=== PATIENT | female | born 1940 | race Caucasian/White ===

== ENCOUNTER → 2016-11-26 | Outpatient (CLI) | payer OTHER ==
[~2016-11-26] MED LIST: ALBUAER3 IN; AMLO10TA2 PO; APIX2.5T OR; ASPI81CH43 PO; BACL20TA PO; CALCTAB25 PO; DIPH25CA66 PO; ERGO1CAP6 PO; FEBU40TA PO; FLUT110A INH; HYDR25TA4 PO; HYDR500T13 PO; MULT-60 OR; POTA10TA51 PO
[2016-11-26 09:50] LABS: Eosinophils # (auto) 0.5 uL; Hemoglobin 14.6 g/dL (12.2-16.2); Monocytes # (auto) 0.8 uL
[2016-11-26 09:52] LABS: Urine Bilirubin Negative (Negative); Urine Blood Negative /uL (Negative); Urine Color Yellow (Yellow); Urine Glucose Normal (Normal); Urine Ketone Negative (Negative); Urine Nitrite Negative (Negative); Urine RBC 1 /hpf (0 - 4); Urine Squamous Epithelial Cell FEW /hpf (<5); Urine Urobilinogen Normal (Negative); Urine pH 6.5 (5.0-8.0)
[2016-11-26 09:55] LABS: Basophils # (auto) 0.2 uL; Hematocrit 45.8 % (36.0-46.0); Lymphocytes # (auto) 1.4 uL; Lymphocytes % (auto) 15.2 % (10.0-50.0); Mean Corpuscular Hemoglobin 27.8 pg (28.0-32.0); Mean Corpuscular Hgb Conc. 31.9 g/dL (32.0-36.0); Mean Corpuscular Volume 87.3 fL (80.0-100.0); Mean Platelet Volume 9.8 fL (7.4-10.4); Monocytes % (auto) 9.4 % (0.0-12.0); Neutrophils # (auto) 6.1 uL; Neutrophils % (auto) 68.4 % (37.0-80.0); Platelet Count (auto) 184 10^3/uL (140-450); Red Cell Distribution Width 13.3 % (11.6-16.0); SUSPECT VIEW TRANSMISSION
[2016-11-26 10:43] LABS: Albumin 3.7 g/dL (3.4-5.0); BUN/Creatinine Ratio 24.7; Phosphorus 2.8 mg/dL (2.5-4.90); Uric Acid 9.8 mg/dL (2.6-6.0)
[2016-11-26 10:46] LABS: Urine Protein/Creatinine Ratio 0.36
[2016-11-26 10:53] LABS: Potassium 2.9 mmol/L (3.5-5.1)
== END | disposition home or self-care (01) ==
LOC: LAB 09:12
PROVIDERS: ATTEND Internal Medicine
DX: E55.9 Vitamin D deficiency, unspecified (principal); R80.9 Proteinuria, unspecified
CPT/HCPCS: 36415; 80069; 81001; 82306; 82570; 83970; 84156; 84550; 85025

== ENCOUNTER → 2017-04-07 | Outpatient (CLI) | payer OTHER ==
[2017-04-07 10:59] LABS: Basophils # (auto) 0.1 uL; Basophils % (auto) 0.9 % (0.0-2.0); Eosinophils # (auto) 0.3 uL; Eosinophils % (auto) 4.1 % (0.0-7.0); Hematocrit 44.7 % (36.0-46.0); Hemoglobin 14.6 g/dL (12.2-16.2); Lymphocytes # (auto) 1.4 uL; Lymphocytes % (auto) 19.2 % (10.0-50.0); Mean Corpuscular Hemoglobin 28.7 pg (28.0-32.0); Mean Corpuscular Hgb Conc. 32.8 g/dL (32.0-36.0); Mean Corpuscular Volume 87.6 fL (80.0-100.0); Mean Platelet Volume 9.7 fL (7.4-10.4); Monocytes % (auto) 13.4 % (0.0-12.0); Neutrophils # (auto) 4.4 uL; Neutrophils % (auto) 62.4 % (37.0-80.0); Platelet Count (auto) 236 10^3/uL (140-450); Red Cell Distribution Width 13.1 % (11.6-16.0); White Blood Cell 7.2 10^3/uL (4.4-10.8)
[2017-04-07 11:19] LABS: Albumin 3.7 g/dL (3.4-5.0); BUN/Creatinine Ratio 30.9; Calcium 9.4 mg/dL (8.5-10.1); Phosphorus 3.1 mg/dL (2.5-4.90); Potassium 3.1 mmol/L (3.5-5.1); Uric Acid 7.7 mg/dL (2.6-6.0)
[2017-04-07 11:31] LABS: Urine Bilirubin Negative (Negative); Urine Blood Negative /uL (Negative); Urine Color Yellow (Yellow); Urine Glucose Normal (Normal); Urine Ketone Negative (Negative); Urine Nitrite Negative (Negative); Urine RBC <1 /hpf (0 - 4); Urine Urobilinogen Normal (Negative); Urine pH 6.5 (5.0-8.0)
== END | disposition home or self-care (01) ==
LOC: LAB 09:33
PROVIDERS: ATTEND Internal Medicine
DX: N18.3 Chronic kidney disease, stage 3 (moderate) (principal); D63.1 Anemia in chronic kidney disease; E21.3 Hyperparathyroidism, unspecified; E78.5 Hyperlipidemia, unspecified; M10.9 Gout, unspecified; E55.9 Vitamin D deficiency, unspecified
CPT/HCPCS: 36415; 80061; 80069; 81001; 82306; 82570; 83970; 84156; 84550; 85025

== ENCOUNTER 2017-04-25 19:05 | Inpatient (IN) | payer OTHER ==
[~2017-04-25] VITALS: Ht 167.6 cm; Wt 77.5 kg
[2017-04-25 20:33] LABS: Basophils # (auto) 0 uL; Basophils % (auto) 0.3 % (0.0-2.0); CONDITION Y; Eosinophils # (auto) 0.3 uL; Eosinophils % (auto) 1.7 % (0.0-7.0); Hematocrit 37.7 % (36.0-46.0); Hemoglobin 12.5 g/dL (12.2-16.2); Lymphocytes # (auto) 1.8 uL; Lymphocytes % (auto) 11.6 % (10.0-50.0); Mean Corpuscular Hemoglobin 29.1 pg (28.0-32.0); Mean Corpuscular Hgb Conc. 33.1 g/dL (32.0-36.0); Mean Corpuscular Volume 87.9 fL (80.0-100.0); Mean Platelet Volume 9.1 fL (7.4-10.4); Monocytes # (auto) 1.1 uL; Monocytes % (auto) 6.8 % (0.0-12.0); Neutrophils # (auto) 12.7 uL; Neutrophils % (auto) 79.6 % (37.0-80.0); Platelet Count (auto) 255 10^3/uL (140-450); Red Cell Distribution Width 14.2 % (11.6-16.0); White Blood Cell 15.9 10^3/uL (4.4-10.8)
[2017-04-25 20:48] LABS: Albumin 3.4 g/dL (3.4-5.0); Calcium 8.8 mg/dL (8.5-10.1)
[2017-04-25 20:53] LABS: BUN/Creatinine Ratio 32.8; Bilirubin, Total 0.4 mg/dL (0.2-1.0); Total Protein 7.5 g/dL (6.4-8.2)
[2017-04-25 20:59] LABS: Potassium 2.9 mmol/L (3.5-5.1)
[2017-04-25] MEDS ORDERED: POTASSIUM CHL 10% (20 MEQ/15ML) ORAL SOLN PO ONE (21:00)
[2017-04-25] MEDS ORDERED: SODIUM CHLORIDE 0.9% 500 ML IVB ONE (21:44)
[2017-04-25 22:03] LABS: Amylase 71 U/L (25-115)
[2017-04-25 22:21] LABS: INR 1.05 (0.9-1.15); Partial Thromboplastin Time 29.2 sec (22.64-33.71); Prothrombin Time 11.5 sec (9.37-12.3)
[2017-04-26] VITALS (8 sets, daily range): BP systolic 19–127; BP diastolic 44–64
[2017-04-26] MEDS ORDERED: SODIUM CHLORIDE 0.9% 1,000 ML IV SCH (00:36)
[2017-04-26] MEDS ORDERED: PANTOPRAZOLE SODIUM 40 MG/10 ML VIAL IV ONE (00:45)
[2017-04-26] MEDS ORDERED: ALBUTEROL SULF 2.5 MG/0.5ML(0.5%) NEB SOLN NEB PRN (00:45)
[2017-04-26] MEDS ORDERED: NITROGLYCERIN 0.4 MG SL TAB SL PRN (00:45)
[2017-04-26] MEDS ORDERED: LACTULOSE 20Gm/30ML SOLN PO PRN (00:45)
[2017-04-26] MEDS ORDERED: MORPHINE SULFATE 4 MG/ML SYRG IV PRN (00:45)
[2017-04-26] MEDS ORDERED: cefTRIAXone 1GM/50ML D5W 50 ML IV ONE (01:00)
[2017-04-26] MEDS: metroNIDAZOLE 500MG/100ML 100 ML IV SCH ×3 (01:04→15:20)
[2017-04-26] MEDS ORDERED: METO100T87 PO (04:46)
[2017-04-26] MEDS ORDERED: ACET-1079 PO (04:46)
[2017-04-26 05:22] LABS: Hematocrit 29.7 % (36.0-46.0); Hemoglobin 9.9 g/dL (12.2-16.2)
[2017-04-26] MEDS: BACLOFEN 10 MG TAB PO SCH ×3 (06:09→21:31)
[2017-04-26] MEDS ORDERED: cefTRIAXone 1GM/50ML D5W 50 ML IV SCH (09:00)
[2017-04-26] MEDS: POTASSIUM CHL 10 Meq TABLET PO SCH (09:58)
[2017-04-26] MEDS: METOPROLOL SUCCINATE XL 50 MG TAB PO SCH ×2 (09:59→21:30)
[2017-04-26] MEDS ORDERED: APIXABAN 2.5 MG TAB PO SCH (10:00)
[2017-04-26] MEDS ORDERED: HCTZ 25 MG TAB PO SCH (10:00)
[2017-04-26] MEDS ORDERED: PANTOPRAZOLE 40 MG TAB PO SCH (10:00)
[2017-04-26] MEDS ORDERED: PATIENTS OWN MEDICATION (ELIQUIS 2.5 MG) PO SCH (10:00)
[2017-04-26] MEDS ORDERED: ULORIC 40 MG PO SCH (10:00)
[2017-04-26] MEDS ORDERED: amLODIPine BESYLATE 5 MG TAB PO SCH (10:00)
[2017-04-26 11:40] LABS: Hematocrit 31.5 % (36.0-46.0); Hemoglobin 10.6 g/dL (12.2-16.2)
[2017-04-26] MEDS: ULORIC 40 MG PO SCH (12:35)
[2017-04-26] MEDS: SOD CHL 0.9%/ KCL 20MEQ 1,000 ML IV SCH (17:21)
[2017-04-26 17:53] LABS: Hematocrit 30.2 % (36.0-46.0); Hemoglobin 10.1 g/dL (12.2-16.2)
[2017-04-26] MEDS: PANTOPRAZOLE 40 MG TAB PO SCH (21:31)
[2017-04-27] VITALS (7 sets, daily range): BP systolic 124–143; BP diastolic 55–86
[2017-04-27] MEDS: BACLOFEN 10 MG TAB PO SCH ×3 (06:07→21:34)
[2017-04-27 06:12] LABS: Basophils # (auto) 0.1 uL; Basophils % (auto) 0.7 % (0.0-2.0); CONDITION Y; Eosinophils # (auto) 0.3 uL; Eosinophils % (auto) 3.8 % (0.0-7.0); Hematocrit 28.8 % (36.0-46.0); Hemoglobin 9.8 g/dL (12.2-16.2); Lymphocytes # (auto) 1.5 uL; Lymphocytes % (auto) 18.8 % (10.0-50.0); Mean Corpuscular Hemoglobin 29.4 pg (28.0-32.0); Mean Corpuscular Hgb Conc. 33.9 g/dL (32.0-36.0); Mean Corpuscular Volume 86.8 fL (80.0-100.0); Mean Platelet Volume 9.7 fL (7.4-10.4); Monocytes # (auto) 0.8 uL; Monocytes % (auto) 9.4 % (0.0-12.0); Neutrophils # (auto) 5.5 uL; Neutrophils % (auto) 67.3 % (37.0-80.0); Platelet Count (auto) 200 10^3/uL (140-450); Red Cell Distribution Width 14.1 % (11.6-16.0); White Blood Cell 8.2 10^3/uL (4.4-10.8)
[2017-04-27 06:43] LABS: Albumin 2.8 g/dL (3.4-5.0); BUN/Creatinine Ratio 31.2; Bilirubin, Total 0.2 mg/dL (0.2-1.0); Calcium 8.3 mg/dL (8.5-10.1); Total Protein 6.4 g/dL (6.4-8.2)
[2017-04-27 06:46] LABS: Potassium 2.9 mmol/L (3.5-5.1)
[2017-04-27] MEDS: METOPROLOL SUCCINATE XL 50 MG TAB PO SCH ×2 (09:14→21:34)
[2017-04-27] MEDS: ULORIC 40 MG PO SCH (09:15)
[2017-04-27] MEDS: PANTOPRAZOLE 40 MG TAB PO SCH ×2 (09:15→21:35)
[2017-04-27] MEDS: POTASSIUM CHL 10 Meq TABLET PO SCH (09:15)
[2017-04-27] MEDS ORDERED: GOLYTELY 4L KIT PO ONE (12:00)
[2017-04-27] MEDS ORDERED: POTASSIUM CHL 20 Meq TABLET PO ONE (13:15)
[2017-04-27] MEDS: SOD CHL 0.9%/ KCL 20MEQ 1,000 ML IV SCH (13:51)
[2017-04-28] VITALS (7 sets, daily range): BP systolic 136–177; BP diastolic 35–92
[2017-04-28] MEDS: BACLOFEN 10 MG TAB PO SCH ×3 (05:43→22:00)
[2017-04-28 05:48] LABS: Hematocrit 31.7 % (36.0-46.0)
[2017-04-28] MEDS: PANTOPRAZOLE 40 MG TAB PO SCH ×2 (09:30→22:00)
[2017-04-28] MEDS: POTASSIUM CHL 10 Meq TABLET PO SCH (09:30)
[2017-04-28] MEDS: METOPROLOL SUCCINATE XL 50 MG TAB PO SCH ×2 (09:31→22:00)
[2017-04-28] MEDS: SOD CHL 0.9%/ KCL 40MEQ 1,000 ML IV SCH (09:32)
[2017-04-28] MEDS: ULORIC 40 MG PO SCH (09:32)
[2017-04-28] MEDS ORDERED: LORazepam 2MG/ML-1ML VIAL IV PRN (20:00)
[2017-04-28] MEDS: ATORVASTATIN 20 MG TAB PO SCH (22:00)
[2017-04-29] VITALS (7 sets, daily range): BP systolic 116–154; BP diastolic 58–88
[2017-04-29] MEDS: SOD CHL 0.9%/ KCL 40MEQ 1,000 ML IV SCH (00:18)
[2017-04-29] MEDS: BACLOFEN 10 MG TAB PO SCH ×3 (05:01→21:26)
[2017-04-29] MEDS ORDERED: SODIUM CHLORIDE LOCK 10 ML ONE (08:12)
[2017-04-29] MEDS ORDERED: LIDOCAINE VISCOUS 2% 15ML UD ONE (08:12)
[2017-04-29] MEDS ORDERED: diphenhdrAMINE HCL 50 MG/1 ML VL ONE (08:13)
[2017-04-29] MEDS: MIDAZOLAM HCL 5 MG/ML-1ML VIAL ONE ×3 (09:00→09:10)
[2017-04-29] MEDS: fentaNYL CITRATE 100 MCG/2 ML VL ONE ×3 (09:00→09:10)
[2017-04-29] MEDS: PANTOPRAZOLE 40 MG TAB PO SCH ×2 (12:00→21:27)
[2017-04-29] MEDS: METOPROLOL SUCCINATE XL 50 MG TAB PO SCH ×2 (12:00→21:28)
[2017-04-29] MEDS: POTASSIUM CHL 10 Meq TABLET PO SCH (12:00)
[2017-04-29] MEDS: ULORIC 40 MG PO SCH (12:01)
[2017-04-29 18:17] LABS: Hematocrit 31.9 % (36.0-46.0); Hemoglobin 10.7 g/dL (12.2-16.2)
[2017-04-29] MEDS: ATORVASTATIN 20 MG TAB PO SCH (21:27)
[2017-04-30 00:47] LABS: Hematocrit 31.6 % (36.0-46.0)
[2017-04-30 05:10] VITALS: BP 136/71
[2017-04-30] MEDS: BACLOFEN 10 MG TAB PO SCH ×3 (05:18→22:12)
[2017-04-30 05:37] LABS: Hemoglobin 9.1 g/dL (12.2-16.2)
[2017-04-30 05:59] LABS: BUN/Creatinine Ratio 14.5; Calcium 8.4 mg/dL (8.5-10.1); Potassium 3.2 mmol/L (3.5-5.1)
[2017-04-30 09:00] VITALS: BP 127/60
[2017-04-30] MEDS: PANTOPRAZOLE 40 MG TAB PO SCH ×2 (10:11→22:11)
[2017-04-30] MEDS: ULORIC 40 MG PO SCH (10:12)
[2017-04-30] MEDS: POTASSIUM CHL 20 Meq TABLET PO SCH (10:12)
[2017-04-30] MEDS: METOPROLOL SUCCINATE XL 50 MG TAB PO SCH ×2 (10:12→22:13)
[2017-04-30 13:00] VITALS: BP 130/80
[2017-04-30] MEDS ORDERED: amLODIPine BESYLATE 5 MG TAB PO ONE (14:00)
[2017-04-30 17:00] VITALS: BP 125/54
[2017-04-30 20:00] VITALS: BP 118/60
[2017-04-30 22:00] VITALS: BP 118/60
[2017-04-30] MEDS: ATORVASTATIN 20 MG TAB PO SCH (22:10)
[2017-04-30] MEDS: APIXABAN 2.5 MG TAB PO SCH (22:11)
[2017-05-01 04:58] VITALS: BP 113/75
[2017-05-01] MEDS: BACLOFEN 10 MG TAB PO SCH (05:32)
[2017-05-01 07:06] LABS: Basophils # (auto) 0 uL; Basophils % (auto) 0.5 % (0.0-2.0); CONDITION Y; Eosinophils # (auto) 0.2 uL; Hematocrit 29.8 % (36.0-46.0); Hemoglobin 10.4 g/dL (12.2-16.2); Lymphocytes # (auto) 1.3 uL; Lymphocytes % (auto) 15.4 % (10.0-50.0); Mean Corpuscular Hemoglobin 31.2 pg (28.0-32.0); Mean Corpuscular Volume 89.2 fL (80.0-100.0); Mean Platelet Volume 9.4 fL (7.4-10.4); Monocytes % (auto) 12.1 % (0.0-12.0); Neutrophils # (auto) 5.7 uL; Platelet Count (auto) 204 10^3/uL (140-450); Red Cell Distribution Width 14.8 % (11.6-16.0); White Blood Cell 8.2 10^3/uL (4.4-10.8)
[2017-05-01] MEDS ORDERED: PANT40T PO (07:52)
[2017-05-01 08:00] VITALS: BP 113/75
[2017-05-01] MEDS ORDERED: ATOR20TA50 PO (08:53)
[2017-05-01 09:00] VITALS: BP 134/68
[2017-05-01] MEDS: ULORIC 40 MG PO SCH (09:59)
[2017-05-01] MEDS: PANTOPRAZOLE 40 MG TAB PO SCH (10:00)
[2017-05-01] MEDS ORDERED: amLODIPine BESYLATE 5 MG TAB PO SCH (10:00)
[2017-05-01] MEDS: POTASSIUM CHL 20 Meq TABLET PO SCH (10:00)
[2017-05-01] MEDS: APIXABAN 2.5 MG TAB PO SCH (10:00)
[2017-05-01] MEDS: METOPROLOL SUCCINATE XL 50 MG TAB PO SCH (10:01)
[2017-05-01 10:24] VITALS: BP 134/68
== END 2017-05-01 12:59 | disposition home or self-care (01) | DRG 378 ==
LOC: ER 19:06 → TELE 19:07 → TELE-WESTW 04-26 02:02
PROVIDERS: ADMIT Family Medicine; ATTEND Internal Medicine
PROC: 0DB68ZX Excision of Stomach, Via Natural or Artificial Opening Endoscopic, Diagnostic (ICD-10-PCS; principal; 2017-04-29 08:38)
PROC: 0DJD8ZZ Inspection of Lower Intestinal Tract, Via Natural or Artificial Opening Endoscopic (ICD-10-PCS; 2017-04-29 08:38)
DX: K25.4 Chronic or unspecified gastric ulcer with hemorrhage (principal); I13.0 Hypertensive heart and chronic kidney disease with heart failure and stage 1 through stage 4 chronic kidney disease, or unspecified chronic kidney disease; R65.10 Systemic inflammatory response syndrome (SIRS) of non-infectious origin without acute organ dysfunction; I50.32 Chronic diastolic (congestive) heart failure; D62 Acute posthemorrhagic anemia; I69.351 Hemiplegia and hemiparesis following cerebral infarction affecting right dominant side; E87.6 Hypokalemia; I48.0 Paroxysmal atrial fibrillation; I48.2 Chronic atrial fibrillation; I73.9 Peripheral vascular disease, unspecified; J44.9 Chronic obstructive pulmonary disease, unspecified; K57.50 Diverticulosis of both small and large intestine without perforation or abscess without bleeding; M10.9 Gout, unspecified; N18.3 Chronic kidney disease, stage 3 (moderate); Z82.3 Family history of stroke; Z82.49 Family history of ischemic heart disease and other diseases of the circulatory system; Z85.828 Personal history of other malignant neoplasm of skin; M19.90 Unspecified osteoarthritis, unspecified site; F17.200 Nicotine dependence, unspecified, uncomplicated; K25.9 Gastric ulcer, unspecified as acute or chronic, without hemorrhage or perforation; K64.8 Other hemorrhoids; Z86.711 Personal history of pulmonary embolism; Z88.2 Allergy status to sulfonamides; Z88.7 Allergy status to serum and vaccine; Z88.8 Allergy status to other drugs, medicaments and biological substances; Z91.041 Radiographic dye allergy status; Z79.82 Long term (current) use of aspirin; Z90.710 Acquired absence of both cervix and uterus; G47.00 Insomnia, unspecified; D72.829 Elevated white blood cell count, unspecified; Z71.89 Other specified counseling
CPT/HCPCS: 36415; 43239; 45378; 70450; 70551; 71010; 74176; 80048; 80053; 80061; 82150; 82270; 83690; 83735; 84132; 84484; 85014; 85018; 85025; 85610; 85730; 86850; 86900; 86901; 93005; 93306; 93886; 94640; 95819; 96361; 96374; C9113; J0696; J2250; J3490

== ENCOUNTER → 2017-06-10 | Outpatient (CLI) | payer OTHER ==
[~2017-06-10] MED LIST changes: +ACET-1079 PO; -ASPI81CH43 PO; +ATOR20TA50 PO; -HYDR25TA4 PO; +METO100T87 PO; +PANT40T PO
[2017-06-10 08:44] LABS: Basophils # (auto) 0 uL; Basophils % (auto) 0.6 % (0.0-2.0); CONDITION Y; DEFINITIVE SEE PRINTOUT; Eosinophils # (auto) 0.2 uL; Eosinophils % (auto) 3.3 % (0.0-7.0); Hemoglobin 9.9 g/dL (12.2-16.2); Lymphocytes % (auto) 14.9 % (10.0-50.0); Mean Corpuscular Hemoglobin 26.5 pg (28.0-32.0); Mean Corpuscular Hgb Conc. 31.9 g/dL (32.0-36.0); Mean Corpuscular Volume 83.2 fL (80.0-100.0); Mean Platelet Volume 8.4 fL (7.4-10.4); Monocytes # (auto) 0.9 uL; Neutrophils # (auto) 4.6 uL; Neutrophils % (auto) 68.2 % (37.0-80.0); Platelet Count (auto) 259 10^3/uL (140-450); Red Cell Distribution Width 16.2 % (11.6-16.0); White Blood Cell 6.7 10^3/uL (4.4-10.8)
== END | disposition home or self-care (01) ==
LOC: LAB 08:10
PROVIDERS: ATTEND Family Medicine
DX: K63.5 Polyp of colon (principal); K57.30 Diverticulosis of large intestine without perforation or abscess without bleeding; I11.0 Hypertensive heart disease with heart failure; I50.9 Heart failure, unspecified; I48.91 Unspecified atrial fibrillation; J44.9 Chronic obstructive pulmonary disease, unspecified
CPT/HCPCS: 36415; 85025

== ENCOUNTER → 2017-08-07 | Outpatient (CLI) | payer OTHER ==
[2017-08-07 09:45] LABS: Basophils # (auto) 0.1 uL; Eosinophils # (auto) 0.2 uL; Eosinophils % (auto) 3.7 % (0.0-7.0); Hematocrit 37.6 % (36.0-46.0); Hemoglobin 11.9 g/dL (12.2-16.2); Lymphocytes # (auto) 0.9 uL; Lymphocytes % (auto) 16.5 % (10.0-50.0); Mean Corpuscular Hgb Conc. 31.7 g/dL (32.0-36.0); Mean Corpuscular Volume 85.3 fL (80.0-100.0); Mean Platelet Volume 8.6 fL (6.9-10.8); Monocytes # (auto) 0.7 uL; Monocytes % (auto) 13.1 % (0.0-12.0); Neutrophils # (auto) 3.6 uL; Neutrophils % (auto) 65.7 % (37.0-80.0); Nucleated Red Blood Cells % 0.1 %; Platelet Count (auto) 170 10^3/uL (140-450); Red Cell Distribution Width 20.8 % (11.8-14.3); Urine Bilirubin Negative (Negative); Urine Blood Negative /uL (Negative); Urine Color Yellow (Yellow); Urine Glucose Normal (Normal); Urine Ketone Negative (Negative); Urine Nitrite Negative (Negative); Urine RBC <1 /hpf (0 - 4); Urine Squamous Epithelial Cell FEW /hpf (<5); Urine Urobilinogen Normal (Negative); Urine pH 6.5 (5.0-8.0); White Blood Cell 5.5 10^3/uL (4.4-10.8)
[2017-08-07 09:56] LABS: Urine Protein/Creatinine Ratio 0.43
[2017-08-07 10:09] LABS: Albumin 3.6 g/dL (3.4-5.0); BUN/Creatinine Ratio 16.1; Calcium 8.8 mg/dL (8.5-10.1); Phosphorus 3.3 mg/dL (2.5-4.90); Potassium 4.3 mmol/L (3.5-5.1); Uric Acid 4.4 mg/dL (2.6-6.0)
== END | disposition home or self-care (01) ==
LOC: LAB 08:34
PROVIDERS: ATTEND Internal Medicine
DX: N18.3 Chronic kidney disease, stage 3 (moderate) (principal); D63.1 Anemia in chronic kidney disease; M10.9 Gout, unspecified; R80.9 Proteinuria, unspecified; E53.9 Vitamin B deficiency, unspecified
CPT/HCPCS: 36415; 80069; 81001; 82306; 82570; 83970; 84156; 84550; 85025

== ENCOUNTER → 2017-09-16 | Outpatient (CLI) | payer OTHER ==
[2017-09-16 09:23] LABS: Basophils # (auto) 0.1 uL; Basophils % (auto) 1.2 % (0.0-2.0); Eosinophils # (auto) 0.2 uL; Eosinophils % (auto) 3.4 % (0.0-7.0); Hematocrit 39.2 % (36.0-46.0); Hemoglobin 12.6 g/dL (12.2-16.2); Lymphocytes % (auto) 17.8 % (10.0-50.0); Mean Corpuscular Hemoglobin 27.2 pg (28.0-32.0); Mean Corpuscular Hgb Conc. 32.2 g/dL (32.0-36.0); Mean Corpuscular Volume 84.6 fL (80.0-100.0); Mean Platelet Volume 8.1 fL (6.9-10.8); Monocytes # (auto) 0.7 uL; Monocytes % (auto) 12.7 % (0.0-12.0); Neutrophils # (auto) 3.7 uL; Neutrophils % (auto) 64.9 % (37.0-80.0); Platelet Count (auto) 164 10^3/uL (140-450); Red Cell Distribution Width 18.8 % (11.8-14.3); White Blood Cell 5.7 10^3/uL (4.4-10.8)
== END | disposition home or self-care (01) ==
LOC: LAB 09:02
PROVIDERS: ATTEND Internal Medicine Gastroenterology
DX: R19.5 Other fecal abnormalities (principal); J44.9 Chronic obstructive pulmonary disease, unspecified; I11.0 Hypertensive heart disease with heart failure; I50.9 Heart failure, unspecified
CPT/HCPCS: 36415; 85025

== ENCOUNTER → 2017-10-14 | Outpatient (CLI) | payer OTHER ==
[2017-10-14 09:26] LABS: Urine Bilirubin Negative (Negative); Urine Blood Negative /uL (Negative); Urine Color Yellow (Yellow); Urine Glucose Normal (Normal); Urine Ketone Negative (Negative); Urine Nitrite Negative (Negative); Urine RBC 1 /hpf (0 - 4); Urine Squamous Epithelial Cell FEW /hpf (<5); Urine Urobilinogen Normal (Negative)
[2017-10-14 09:57] LABS: Albumin 3.9 g/dL (3.4-5.0); BUN/Creatinine Ratio 20.7; Bilirubin, Total 0.7 mg/dL (0.2-1.0); Calcium 9.4 mg/dL (8.5-10.1); Total Protein 8.8 g/dL (6.4-8.2)
== END | disposition home or self-care (01) ==
LOC: LAB 08:59
PROVIDERS: ATTEND Internal Medicine
DX: I13.0 Hypertensive heart and chronic kidney disease with heart failure and stage 1 through stage 4 chronic kidney disease, or unspecified chronic kidney disease (principal); I50.9 Heart failure, unspecified; N18.4 Chronic kidney disease, stage 4 (severe); I48.2 Chronic atrial fibrillation
CPT/HCPCS: 36415; 80053; 80061; 81001; 83036; 84443; 86141

== ENCOUNTER → 2017-12-03 | Outpatient (CLI) | payer OTHER ==
[~2017-12-03] VITALS: Ht 167.6 cm; Wt 76.7 kg
[~2017-12-03] MED LIST changes: +ADENOSINE 64 MG in GIVE UN-DILUTED 0 ML IV ONE; +ALBUTEROL SULF 2.5 MG/0.5ML(0.5%) NEB SOLN ONE; +IPRATROPIUM BROM 0.5 MG/2.5ML INH SOL ONE
[2017-12-03 12:20] VITALS: BP 157/59
== END | disposition home or self-care (01) ==
LOC: XY 08:15
PROVIDERS: ATTEND Internal Medicine
DX: I05.2 Rheumatic mitral stenosis with insufficiency (principal); I36.1 Nonrheumatic tricuspid (valve) insufficiency; I48.2 Chronic atrial fibrillation
CPT/HCPCS: 93017; 93306; J0153; 94640

== ENCOUNTER → 2017-12-08 | Outpatient (CLI) | payer OTHER ==
[~2017-12-08] MED LIST changes: -ADENOSINE 64 MG in GIVE UN-DILUTED 0 ML IV ONE; -ALBUTEROL SULF 2.5 MG/0.5ML(0.5%) NEB SOLN ONE; -IPRATROPIUM BROM 0.5 MG/2.5ML INH SOL ONE
[2017-12-08 10:10] LABS: Basophils # (auto) 0.1 uL; Basophils % (auto) 1.2 % (0.0-2.0); Eosinophils # (auto) 0.3 uL; Eosinophils % (auto) 4.4 % (0.0-7.0); Hemoglobin 15.5 g/dL (12.2-16.2); Lymphocytes # (auto) 1.2 uL; Lymphocytes % (auto) 20.2 % (10.0-50.0); Mean Corpuscular Hgb Conc. 32.9 g/dL (32.0-36.0); Monocytes # (auto) 0.8 uL; Monocytes % (auto) 12.8 % (0.0-12.0); Neutrophils # (auto) 3.8 uL; Neutrophils % (auto) 61.4 % (37.0-80.0); Nucleated Red Blood Cells % 0.1 %; Platelet Count (auto) 183 10^3/uL (140-450); Red Blood Cells 5.34 10^6/uL (4.0-5.20); Red Cell Distribution Width 15.9 % (11.8-14.3); White Blood Cell 6.2 10^3/uL (4.4-10.8)
[2017-12-08 10:24] LABS: Urine Bacteria NONE SEEN /hpf (None Seen); Urine Blood Negative /uL (Negative); Urine Specific Gravity 1.011 (1.001-1.035); Urine WBC <1 /hpf (0 - 5)
[2017-12-08 11:54] LABS: Albumin 3.8 g/dL (3.4-5.0); BUN/Creatinine Ratio 27.3; Calcium 9.6 mg/dL (8.5-10.1); Phosphorus 3.7 mg/dL (2.5-4.90); Uric Acid 5.8 mg/dL (2.6-6.0)
[2017-12-08 12:11] LABS: Protein, Urine 27.2 mg/dL (0.0-11.9)
== END | disposition home or self-care (01) ==
LOC: LAB 08:50
PROVIDERS: ATTEND Internal Medicine
DX: N18.3 Chronic kidney disease, stage 3 (moderate) (principal); D63.1 Anemia in chronic kidney disease; E21.3 Hyperparathyroidism, unspecified; E78.5 Hyperlipidemia, unspecified; M10.9 Gout, unspecified; R80.9 Proteinuria, unspecified; E55.9 Vitamin D deficiency, unspecified
CPT/HCPCS: 36415; 80069; 81001; 82306; 82570; 83970; 84156; 84550; 85025

== ENCOUNTER → 2018-03-11 | Outpatient (CLI) | payer OTHER ==
[2018-03-11 16:15] LABS: Albumin 3.7 g/dL (3.4-5.0); Calcium 9.5 mg/dL (8.5-10.1); Potassium 4.2 mmol/L (3.5-5.1)
[2018-03-11 16:19] LABS: BUN/Creatinine Ratio 18.5; Bilirubin, Total 0.6 mg/dL (0.2-1.0); Total Protein 8.6 g/dL (6.4-8.2)
== END | disposition home or self-care (01) ==
LOC: LAB 15:43
PROVIDERS: ATTEND Internal Medicine
DX: R35.1 Nocturia (principal); R32 Unspecified urinary incontinence; E55.9 Vitamin D deficiency, unspecified; E78.5 Hyperlipidemia, unspecified; I13.0 Hypertensive heart and chronic kidney disease with heart failure and stage 1 through stage 4 chronic kidney disease, or unspecified chronic kidney disease; N18.3 Chronic kidney disease, stage 3 (moderate); I50.32 Chronic diastolic (congestive) heart failure; J44.9 Chronic obstructive pulmonary disease, unspecified; I73.9 Peripheral vascular disease, unspecified; I48.0 Paroxysmal atrial fibrillation; Z79.82 Long term (current) use of aspirin; Z87.891 Personal history of nicotine dependence
CPT/HCPCS: 36415; 80053

== ENCOUNTER → 2018-03-30 | Outpatient (CLI) | payer OTHER ==
[2018-03-30 10:05] LABS: Basophils # (auto) 0.1 uL; Basophils % (auto) 1.2 % (0.0-2.0); Eosinophils # (auto) 0.3 uL; Eosinophils % (auto) 4.3 % (0.0-7.0); Hematocrit 43.8 % (36.0-46.0); Hemoglobin 14.7 g/dL (12.2-16.2); Lymphocytes # (auto) 1.2 uL; Lymphocytes % (auto) 20.2 % (10.0-50.0); Mean Corpuscular Hemoglobin 30.4 pg (28.0-32.0); Mean Corpuscular Hgb Conc. 33.6 g/dL (32.0-36.0); Mean Corpuscular Volume 90.6 fL (80.0-100.0); Monocytes # (auto) 0.9 uL; Monocytes % (auto) 14.2 % (0.0-12.0); Neutrophils # (auto) 3.6 uL; Neutrophils % (auto) 60.1 % (37.0-80.0); Platelet Count (auto) 175 10^3/uL (140-450); Red Blood Cells 4.83 10^6/uL (4.0-5.20); Red Cell Distribution Width 13.8 % (11.8-14.3)
[2018-03-30 10:14] LABS: Urine Bacteria FEW /hpf (None Seen); Urine Blood Negative /uL (Negative); Urine Specific Gravity 1.009 (1.001-1.035); Urine WBC 1 /hpf (0 - 5)
[2018-03-30 10:21] LABS: Albumin 3.4 g/dL (3.4-5.0); Potassium 4.4 mmol/L (3.5-5.1)
[2018-03-30 10:24] LABS: BUN/Creatinine Ratio 21.1
[2018-03-30 10:26] LABS: Protein, Urine 21.6 mg/dL (0.0-11.9)
[2018-03-30 10:30] LABS: Phosphorus 3.6 mg/dL (2.5-4.90)
[2018-03-30 10:55] LABS: Uric Acid 5.4 mg/dL (2.6-6.0)
== END | disposition home or self-care (01) ==
LOC: LAB 09:06
PROVIDERS: ATTEND Internal Medicine
DX: E55.9 Vitamin D deficiency, unspecified (principal); I12.9 Hypertensive chronic kidney disease with stage 1 through stage 4 chronic kidney disease, or unspecified chronic kidney disease; N18.3 Chronic kidney disease, stage 3 (moderate); D63.1 Anemia in chronic kidney disease; E21.3 Hyperparathyroidism, unspecified; E78.5 Hyperlipidemia, unspecified; M10.9 Gout, unspecified; R80.9 Proteinuria, unspecified; J44.9 Chronic obstructive pulmonary disease, unspecified; Z79.82 Long term (current) use of aspirin; Z87.891 Personal history of nicotine dependence
CPT/HCPCS: 36415; 80069; 81001; 82306; 82570; 83970; 84156; 84550; 85025

== ENCOUNTER → 2018-08-03 | Outpatient (CLI) | payer OTHER ==
[~2018-08-03] MED LIST changes: +AMLO10TA12 PO; -AMLO10TA2 PO
[2018-08-03 09:15] LABS: Basophils # (auto) 0.1 uL; Basophils % (auto) 1.2 % (0.0-2.0); Eosinophils # (auto) 0.2 uL; Eosinophils % (auto) 4.2 % (0.0-7.0); Hematocrit 47.4 % (36.0-46.0); Hemoglobin 15.1 g/dL (12.2-16.2); Lymphocytes % (auto) 17.4 % (10.0-50.0); Mean Corpuscular Hemoglobin 29.1 pg (28.0-32.0); Mean Corpuscular Hgb Conc. 31.9 g/dL (32.0-36.0); Mean Corpuscular Volume 91.4 fL (80.0-100.0); Monocytes # (auto) 0.8 uL; Monocytes % (auto) 13.2 % (0.0-12.0); Neutrophils # (auto) 3.7 uL; Nucleated Red Blood Cells % 0.4 %; Platelet Count (auto) 167 10^3/uL (140-450); Red Blood Cells 5.19 10^6/uL (4.0-5.20); Red Cell Distribution Width 14.3 % (11.8-14.3); White Blood Cell 5.7 10^3/uL (4.4-10.8)
[2018-08-03 10:09] LABS: Potassium 4.7 mmol/L (3.5-5.1)
[2018-08-03 10:13] LABS: Albumin 3.6 g/dL (3.4-5.0); BUN/Creatinine Ratio 17.4; Calcium 8.6 mg/dL (8.5-10.1); Phosphorus 3.5 mg/dL (2.5-4.90)
[2018-08-03 17:48] LABS: Uric Acid 5.2 mg/dL (2.6-6.0)
[2018-08-05 07:01] LABS: Urine Bacteria NONE SEEN /hpf (None Seen); Urine Blood Negative /uL (Negative); Urine Specific Gravity 1.009 (1.001-1.035); Urine WBC 1 /hpf (0 - 5)
== END | disposition home or self-care (01) ==
LOC: LAB 08:42
PROVIDERS: ATTEND Internal Medicine
DX: I12.9 Hypertensive chronic kidney disease with stage 1 through stage 4 chronic kidney disease, or unspecified chronic kidney disease (principal); N18.3 Chronic kidney disease, stage 3 (moderate); D63.1 Anemia in chronic kidney disease; E21.3 Hyperparathyroidism, unspecified; E78.5 Hyperlipidemia, unspecified; M10.9 Gout, unspecified; R80.9 Proteinuria, unspecified; E55.9 Vitamin D deficiency, unspecified
CPT/HCPCS: 36415; 80061; 80069; 82306; 83970; 84550; 85025

== ENCOUNTER → 2018-08-31 | Outpatient (CLI) | payer OTHER ==
[2018-08-31 10:46] LABS: Basophils # (auto) 0.1 uL; Basophils % (auto) 1.1 % (0.0-2.0); Eosinophils # (auto) 0.3 uL; Eosinophils % (auto) 4.2 % (0.0-7.0); Hematocrit 45.8 % (36.0-46.0); Hemoglobin 15.1 g/dL (12.2-16.2); Lymphocytes # (auto) 1.3 uL; Lymphocytes % (auto) 20.8 % (10.0-50.0); Mean Corpuscular Hemoglobin 30.3 pg (28.0-32.0); Mean Corpuscular Hgb Conc. 32.9 g/dL (32.0-36.0); Mean Corpuscular Volume 91.9 fL (80.0-100.0); Monocytes # (auto) 0.9 uL; Monocytes % (auto) 14.7 % (0.0-12.0); Neutrophils # (auto) 3.6 uL; Neutrophils % (auto) 59.2 % (37.0-80.0); Nucleated Red Blood Cells % 0.1 %; Platelet Count (auto) 181 10^3/uL (140-450); Red Blood Cells 4.99 10^6/uL (4.0-5.20); Red Cell Distribution Width 14.6 % (11.8-14.3); White Blood Cell 6.1 10^3/uL (4.4-10.8)
[2018-08-31 10:53] LABS: Urine Bacteria NONE SEEN /hpf (None Seen); Urine Blood Negative /uL (Negative); Urine Mucus FEW (None Seen); Urine Specific Gravity 1.012 (1.001-1.035); Urine WBC 2 /hpf (0 - 5)
[2018-08-31 11:54] LABS: Potassium 4.3 mmol/L (3.5-5.1)
[2018-08-31 12:16] LABS: Albumin 3.4 g/dL (3.4-5.0); BUN/Creatinine Ratio 22.9; Bilirubin, Total 0.7 mg/dL (0.2-1.0); Calcium 9.1 mg/dL (8.5-10.1); Total Protein 8.3 g/dL (6.4-8.2)
== END | disposition home or self-care (01) ==
LOC: LAB 09:17
PROVIDERS: ATTEND Nurse Practitioner
DX: R78.5 Finding of other psychotropic drug in blood (principal); I11.0 Hypertensive heart disease with heart failure
CPT/HCPCS: 36415; 80053; 80061; 81001; 83036; 84443; 85025

== ENCOUNTER → 2019-01-28 | Outpatient (CLI) | payer OTHER | END | disposition home or self-care (01) | LOC: XYW 08:21 | PROVIDERS: ATTEND Internal Medicine | DX: I08.1 Rheumatic disorders of both mitral and tricuspid valves (principal); I11.0 Hypertensive heart disease with heart failure; I50.9 Heart failure, unspecified; E78.5 Hyperlipidemia, unspecified | CPT/HCPCS: 93306 ==

== ENCOUNTER → 2019-02-04 | Outpatient (CLI) | payer OTHER ==
[2019-02-04 15:15] LABS: Urine Blood Negative /uL (Negative); Urine Specific Gravity 1.017 (1.001-1.035)
[2019-02-04 15:43] LABS: Albumin 3.4 g/dL (3.4-5.0); BUN/Creatinine Ratio 18.5; Calcium 8.8 mg/dL (8.5-10.1); Phosphorus 4.5 mg/dL (2.5-4.90)
[2019-02-04 15:47] LABS: Creatinine, Urine 121 mg/dL (30.0-125.0); Protein, Urine 66.8 mg/dL (0.0-11.9)
[2019-02-04 16:11] LABS: Hematocrit 44.1 % (36.0-46.0); Hemoglobin 14.3 g/dL (12.2-16.2); Mean Corpuscular Hemoglobin 30.1 pg (28.0-32.0); Mean Corpuscular Hgb Conc. 32.4 g/dL (32.0-36.0); Platelet Count (auto) 155 10^3/uL (140-450); Red Blood Cells 4.74 10^6/uL (4.0-5.20); Red Cell Distribution Width 14.5 % (11.8-14.3)
[2019-02-04 16:23] LABS: Band Neutrophils % (manual) 0; Basophils % (manual) 0 (0.0-2.0); Blast Cells 0; Metamyelocytes % 0; Myelocytes % 0; Promyelocytes % 0; Reactive Lymphocytes 0
[2019-02-04 17:34] LABS: Eosinophils % (manual) 5 (0-7); Lymphocytes % (manual) 11 (10.0-50.0); Monocytes % (manual) 9 (0-12)
== END | disposition home or self-care (01) ==
LOC: LAB 14:29
PROVIDERS: ATTEND Internal Medicine
DX: M10.9 Gout, unspecified (principal); I12.9 Hypertensive chronic kidney disease with stage 1 through stage 4 chronic kidney disease, or unspecified chronic kidney disease; D63.1 Anemia in chronic kidney disease; N18.3 Chronic kidney disease, stage 3 (moderate); R80.9 Proteinuria, unspecified
CPT/HCPCS: 36415; 80069; 81003; 82306; 82570; 83970; 84156; 85007; 85027

== ENCOUNTER 2019-02-23 14:03 | Inpatient (IN) | payer OTHER ==
[~2019-02-23] VITALS: Ht 167.6 cm; Wt 89.5 kg
[2019-02-23] MEDS ORDERED: SODIUM CHLORIDE 0.9% 1,000 ML IV ONE (14:10)
[2019-02-23] MEDS ORDERED: ALBUTEROL SULF 2.5 MG/0.5ML(0.5%) NEB SOLN NEB ONE (14:15)
[2019-02-23] MEDS ORDERED: methylPREDNISolone SOD SUCC 125 MG/2 ML VL IV ONE (14:15)
[2019-02-23] MEDS ORDERED: IPRATROPIUM BROM 0.5 MG/2.5ML INH SOL NEB ONE (14:15)
[2019-02-23] MEDS ORDERED: cefTRIAXone 1GM/50ML D5W 50 ML IV ONE (14:15)
[2019-02-23 14:46] LABS: Basophils # (auto) 0.1 uL; Basophils % (auto) 0.6 % (0.0-2.0); Eosinophils # (auto) 0.3 uL; Eosinophils % (auto) 2.4 % (0.0-7.0); Hematocrit 41.8 % (36.0-46.0); Hemoglobin 13.7 g/dL (12.2-16.2); Lymphocytes # (auto) 0.7 uL; Lymphocytes % (auto) 5.6 % (10.0-50.0); Mean Corpuscular Hemoglobin 30.4 pg (28.0-32.0); Mean Corpuscular Hgb Conc. 32.9 g/dL (32.0-36.0); Mean Corpuscular Volume 92.4 fL (80.0-100.0); Monocytes # (auto) 0.9 uL; Monocytes % (auto) 7.9 % (0.0-12.0); Neutrophils # (auto) 9.9 uL; Neutrophils % (auto) 83.5 % (37.0-80.0); Platelet Count (auto) 191 10^3/uL (140-450); Red Blood Cells 4.52 10^6/uL (4.0-5.20); Red Cell Distribution Width 14.1 % (11.8-14.3); White Blood Cell 11.9 10^3/uL (4.4-10.8)
[2019-02-23 14:56] LABS: Albumin 3.4 g/dL (3.4-5.0); Calcium 8.9 mg/dL (8.5-10.1); Potassium 4.2 mmol/L (3.5-5.1)
[2019-02-23] MEDS ORDERED: MORPHINE SULF INJ 2 MG/ML SYRINGE 1ML IV PRN (15:00)
[2019-02-23] MEDS ORDERED: FUROSEMIDE 40 MG/4 ML VIAL IV ONE (15:00)
[2019-02-23] MEDS ORDERED: METOPROLOL TARTRATE 50 MG TAB PO ONE (15:00)
[2019-02-23] MEDS ORDERED: NITROGLYCERIN 0.4 MG SL TAB SL PRN (15:00)
[2019-02-23 15:06] LABS: BUN/Creatinine Ratio 17.2; Bilirubin, Total 0.6 mg/dL (0.2-1.0); Total Protein 8.1 g/dL (6.4-8.2)
[2019-02-23] MEDS: BUDESONIDE (INHALATION) 0.5 MG/2 ML NEB NEB SCH (18:05)
[2019-02-23] MEDS: IPRATROPIUM BROM 0.5 MG/2.5ML INH SOL NEB SCH (18:05)
[2019-02-23] MEDS: LEVALBUTEROL HCL 1.25 MG/3 ML NEB NEB SCH (18:05)
--- NOTE | 2019-02-23 18:50 | NUR ---
PATIENT RECEIVED FROM EMERGENCY ROOM WITH MINIMAL REPORT
--- NOTE | 2019-02-23 19:15 | NUR ---
ASSUMED PATIENT CARE- NOC SHIFT PATIENT IS ALERT AND ORIENTED, ANSWERS IN COMPLETE SENTENCES AND MAKES APPROPRIATE EYE CONTACT. PATIENT IS IN BED, BED IS LOCKED AT LOWEST POSITION, BED RAILS UP X2, BEDSIDE TABLE WITHIN REACH, CALL LIGHT WITHIN REACH. DISCUSSED POC WITH PATIENT AND INSTRUCTED PATIENT TO CALL PRN; PATIENT VERBALIZED UNDERSTANDING. NO S/SX OF DISTRESS, SOB OR PAIN. WILL CONTINUE TO MONITOR Q1H AND PRN. PATIENT WAS ADMITTED FROM ER AT 1850; DAUGHTER AT BEDSIDE. O2 NC AT 2L; PATIENT BECOMES SOB WITH ACTIVITY. PATIENT AMBULATED TO THE RESTROOM WITH USE OF PERSONAL STRAIGHT CANE; PATIENT'S GAIT IS WEAK. BED ALARM ON FOR SAFETY PRECAUTIONS. INSTRUCTED PATIENT TO CALL FOR ASSISTANCE IF SHE NEEDS TO GET OUT OF BED; PATIENT VERBALIZED UNDERSTANDING.
[2019-02-23 20:00] VITALS: BP 149/62
[2019-02-23] MEDS: methylPREDNISolone SOD SUCC 40 MG/ML VL IV SCH (21:46)
[2019-02-23] MEDS: APIXABAN 2.5 MG TAB PO SCH (21:46)
[2019-02-23] MEDS: ATORVASTATIN 20 MG TAB PO SCH (21:47)
[2019-02-23] MEDS: METOPROLOL TARTRATE 50 MG TAB PO SCH (21:49)
[2019-02-23 22:00] VITALS: BP 149/62
[2019-02-23] MEDS ORDERED: FURO40TA4 PO (23:32)
[2019-02-23] MEDS ORDERED: CARV25TA55 PO (23:32)
[2019-02-23] MEDS ORDERED: CETI-120 PO (23:32)
[2019-02-23] MEDS ORDERED: ISOSTAB OR (23:32)
[2019-02-24] VITALS (7 sets, daily range): BP systolic 142–165; BP diastolic 54–87
[2019-02-24] MEDS: LEVALBUTEROL HCL 1.25 MG/3 ML NEB NEB SCH ×4 (06:46→18:55)
[2019-02-24] MEDS: IPRATROPIUM BROM 0.5 MG/2.5ML INH SOL NEB SCH ×4 (06:46→18:55)
[2019-02-24] MEDS: BUDESONIDE (INHALATION) 0.5 MG/2 ML NEB NEB SCH ×2 (06:47→18:55)
[2019-02-24 06:48] LABS: Anion Gap 10 (5-15); Carbon Dioxide 24 mmol/L (21-32); Chloride 106 mmol/L (98-107); Glucose 137 mg/dL (74-106); Potassium 3.8 mmol/L (3.5-5.1); Sodium 140 mmol/L (136-145)
[2019-02-24 06:49] LABS: Blood Urea Nitrogen 32 mg/dL (7-18); Calcium 9.1 mg/dL (8.5-10.1); GFR African American 40 mL/min; GFR Non-African American 33 mL/min
[2019-02-24] MEDS: APIXABAN 2.5 MG TAB PO SCH ×2 (09:31→22:18)
[2019-02-24] MEDS: METOPROLOL TARTRATE 50 MG TAB PO SCH ×2 (09:31→22:19)
[2019-02-24] MEDS: methylPREDNISolone SOD SUCC 40 MG/ML VL IV SCH ×2 (09:31→22:18)
[2019-02-24] MEDS: amLODIPine BESYLATE 5 MG TAB PO SCH (09:32)
[2019-02-24] MEDS: PANTOPRAZOLE 40 MG TAB PO SCH (09:32)
[2019-02-24] MEDS ORDERED: FUROSEMIDE 40 MG/4 ML VIAL IV SCH (10:00)
--- NOTE | 2019-02-24 19:00 | NUR ---
OPENING NOTE Received report from day shift RN. Patient is A&O X's 4 with no s/s of distress noted. Patient reports no pain at this time. Educated patient on POC and to use call light when in need of assistance. Patient verbalized understanding. Cane is available at bedside. Bed is in lowest/locked position with side rails up X's 2 and call light within reach of patient. Will continue to monitor for changes and round hourly/PRN.
[2019-02-24] MEDS: FUROSEMIDE 40 MG/4 ML VIAL IV SCH (22:17)
[2019-02-24] MEDS: ATORVASTATIN 20 MG TAB PO SCH (22:18)
[2019-02-25] MEDS: IPRATROPIUM BROM 0.5 MG/2.5ML INH SOL NEB SCH ×4 (00:12→19:19)
[2019-02-25] MEDS: LEVALBUTEROL HCL 1.25 MG/3 ML NEB NEB SCH ×4 (00:12→19:20)
--- NOTE | 2019-02-25 00:17 | NUR ---
UA Urine sample sent via bullet system.
[2019-02-25 02:13] LABS: Creatinine, Urine 48 mg/dL (30.0-125.0); Sodium Urine 38 mmol/L (40-220)
[2019-02-25 03:35] LABS: Urine Bacteria FEW /hpf (None Seen); Urine Blood Negative /uL (Negative); Urine WBC 5 /hpf (0 - 5)
[2019-02-25 05:00] VITALS: BP 154/66
[2019-02-25] MEDS: BUDESONIDE (INHALATION) 0.5 MG/2 ML NEB NEB SCH ×2 (06:07→19:20)
[2019-02-25 07:08] LABS: BUN/Creatinine Ratio 26.7; Calcium 8.8 mg/dL (8.5-10.1); Magnesium 2.5 mg/dL (1.6-2.6); Potassium 3.8 mmol/L (3.5-5.1); Uric Acid 5.9 mg/dL (2.6-6.0)
[2019-02-25 07:17] LABS: Cholesterol 96 mg/dL (< 200); Triglycerides 92 mg/dL (< 150)
[2019-02-25 07:20] LABS: HDL Cholesterol 45 mg/dL (40-59); LDL Cholesterol 44 mg/dL (< 100)
[2019-02-25 08:00] VITALS: BP 151/111
[2019-02-25 09:13] VITALS: BP 151/111
[2019-02-25] MEDS: APIXABAN 2.5 MG TAB PO SCH ×2 (12:17→21:43)
[2019-02-25] MEDS: methylPREDNISolone SOD SUCC 40 MG/ML VL IV SCH ×2 (12:17→21:43)
[2019-02-25] MEDS: FUROSEMIDE 40 MG/4 ML VIAL IV SCH ×2 (12:17→21:43)
[2019-02-25] MEDS: amLODIPine BESYLATE 5 MG TAB PO SCH (12:19)
[2019-02-25] MEDS: METOPROLOL TARTRATE 50 MG TAB PO SCH ×2 (12:19→21:43)
[2019-02-25] MEDS: PANTOPRAZOLE 40 MG TAB PO SCH (12:20)
[2019-02-25 12:46] VITALS: BP 152/65
--- NOTE | 2019-02-25 16:08 | NUR ---
assessment Patient is a 78 year old female who is alert and oriented. Patients cognitive abilities are intact. Prior to admission patient lived home alone and functioned with assistance. Per patient she will return home to her prior living arrangements post discharge and family will transport her home. Patient informed me she has a cane and fww for home use. Patient informed me her PCP is Dr North. I informed patient her post discharge needs to be determined prior to discharge. I informed patient she has a right to speak to a social work administrator regarding all care. I informed patient she has a right to participate in any and all discharge planning. Patient is aware of visiting hours on the hospital floor. I informed patient she has a right to privacy. Patient does not have a POA and advanced directive. I have offered patient information on POA and advanced directives. I informed the patient the advantages and benefits of having an Advanced Directive. Patient verbalized understanding and agreed to discharge plan. Addendum: 02/25/19 at 1613 by Carmen VELASQUEZ Amended: Links added.
[2019-02-25 17:25] VITALS: BP 158/87
--- NOTE | 2019-02-25 19:00 | NUR ---
OPENING NOTE Received report from day shift RN. Patient is A&O X's 3 with no s/s of distress noted. Patient's family is at bedside. Educated patient and family on POC and to use call light when in need of assistance. Patient verbalized understanding. Bed is in lowest/locked position with side rails up X's 2 and call light is within reach. Sitter is at bedside. Will continue to monitor for changes and round hourly/PRN. Addendum: 02/26/19 at 0051 by MARK NAJERA RN RN Wrong patient. Received report from day shift RN. Patient is A&O X's 4 with no s/s of distress noted. Patient receiving breathing treatment at this time and patient's family is at bedside. Educated patient on POC and to use call light when in need of assistance. Patient verbalized understanding. Bed is in lowest/locked position with side rails up X's 2 and call light is within reach. Will continue to monitor for changes and round hourly/PRN.
[2019-02-25] MEDS: ATORVASTATIN 20 MG TAB PO SCH (21:42)
[2019-02-25 22:00] VITALS: BP 148/61
[2019-02-26] MEDS: LEVALBUTEROL HCL 1.25 MG/3 ML NEB NEB SCH ×4 (00:45→19:00)
[2019-02-26] MEDS: IPRATROPIUM BROM 0.5 MG/2.5ML INH SOL NEB SCH ×4 (00:45→19:00)
[2019-02-26 05:00] VITALS: BP 149/72
[2019-02-26] MEDS: BUDESONIDE (INHALATION) 0.5 MG/2 ML NEB NEB SCH ×2 (06:30→19:00)
--- NOTE | 2019-02-26 07:50 | NUR ---
PT RESTING IN BED, NO DISTRESS NOTED. PT DENIES PAIN AT THIS TIME. PT ENCOURAGED TO USE CALL LIGHT PRN. SIDE RAILS UP X 2, BED IN LOWEST LOCKED POSITION, WILL CONTINUE TO MONITOR.
[2019-02-26 08:45] VITALS: BP 157/68
[2019-02-26] MEDS: FUROSEMIDE 40 MG/4 ML VIAL IV SCH (09:05)
[2019-02-26] MEDS: methylPREDNISolone SOD SUCC 40 MG/ML VL IV SCH (09:06)
[2019-02-26] MEDS: amLODIPine BESYLATE 5 MG TAB PO SCH (09:06)
[2019-02-26] MEDS: PANTOPRAZOLE 40 MG TAB PO SCH (09:07)
[2019-02-26] MEDS: APIXABAN 2.5 MG TAB PO SCH ×2 (09:07→21:40)
[2019-02-26] MEDS: ULORIC 40 MG PO SCH (09:08)
[2019-02-26] MEDS: METOPROLOL TARTRATE 50 MG TAB PO SCH ×2 (09:08→21:40)
[2019-02-26 09:52] LABS: BUN/Creatinine Ratio 30.4; Calcium 8.9 mg/dL (8.5-10.1); Potassium 3.7 mmol/L (3.5-5.1)
--- NOTE | 2019-02-26 11:50 | NUR ---
Nutrition Assessment Notes please see attached link for complete assessment Est. Needs IBW 59k-1770kcal (25-30kcal/kgBW), 47-59 gms pro (0.8-1.0 gms/kgBW r/t elev RFT). Will continue to monitor pertinent labs and reassess nutrient need prn. Will reassess per dry body wt Addendum: 02/26/19 at [address] Amended: Links added.
[2019-02-26 14:00] VITALS: BP 154/105
[2019-02-26 15:34] LABS: Calcium 8.8 mg/dL (8.5-10.1); Potassium 3.8 mmol/L (3.5-5.1)
[2019-02-26 15:38] LABS: BUN/Creatinine Ratio 30.4
--- NOTE | 2019-02-26 16:34 | NUR ---
PT REPORTS SHE IS HAVING DIFFICULTY HAVING A BOWEL MOVEMENT. PAGED DR GREER TO REQUEST MEDICATION. PT SYSTOLIC BP RUNNING IN 150'S, WILL ALSO REQUEST PRN BP MEDICATION. WILL CONTINUE TO MONITOR.
[2019-02-26 17:10] VITALS: BP 167/75
--- NOTE | 2019-02-26 19:10 | NUR ---
OPENING NOTE Received report from day shift RN. Patient is A&O X's 4 with no s/s of distress and reports no pain. Patient's family is at bedside. Educated patient on POC and to use call light when in need of assistance. Patient verbalized understanding. Patient has cane available at bedside. Bed is in lowest/locked position with side rails up X's 2 and call light is within reach of patient. Will continue to monitor for changes and round hourly/PRN.
--- NOTE | 2019-02-26 19:30 | NUR ---
PT REPORTS SHE HAD A VERY SMALL BM, NOC NURSE AWARE OF LBM AND BP IN 160'S.
[2019-02-26] MEDS: ATORVASTATIN 20 MG TAB PO SCH (21:40)
[2019-02-26 22:00] VITALS: BP 151/68
[2019-02-26 23:49] VITALS: BP 150/70
[2019-02-27] MEDS: LEVALBUTEROL HCL 1.25 MG/3 ML NEB NEB SCH ×4 (00:15→19:10)
[2019-02-27] MEDS: IPRATROPIUM BROM 0.5 MG/2.5ML INH SOL NEB SCH ×4 (00:15→19:10)
--- NOTE | 2019-02-27 00:30 | NUR ---
SPOKE WITH HOSPITALIST Spoke with hospitalist. She is aware of the consistent hypertension, last BP at 156/70 after Lopressor given. Informed her of ordered blood pressure medications. Will continue to monitor BP.
[2019-02-27 04:51] VITALS: BP 139/71
[2019-02-27 05:43] LABS: Basophils # (auto) 0 uL; Basophils % (auto) 0.1 % (0.0-2.0); Eosinophils # (auto) 0 uL; Hematocrit 41.7 % (36.0-46.0); Hemoglobin 13.7 g/dL (12.2-16.2); Lymphocytes # (auto) 0.7 uL; Lymphocytes % (auto) 5.3 % (10.0-50.0); Mean Corpuscular Hgb Conc. 32.9 g/dL (32.0-36.0); Mean Corpuscular Volume 91.2 fL (80.0-100.0); Monocytes # (auto) 1.2 uL; Neutrophils # (auto) 11.1 uL; Neutrophils % (auto) 85.6 % (37.0-80.0); Nucleated Red Blood Cells % 0.3 %; Platelet Count (auto) 186 10^3/uL (140-450); Red Blood Cells 4.57 10^6/uL (4.0-5.20); Red Cell Distribution Width 14.1 % (11.8-14.3)
[2019-02-27 05:58] LABS: BUN/Creatinine Ratio 32.1; Calcium 8.4 mg/dL (8.5-10.1); Potassium 3.9 mmol/L (3.5-5.1)
--- NOTE | 2019-02-27 08:27 | NUR ---
PT RESTING IN BED, NO DISTRESS NOTED. PT DENIES ANY PAIN AT THIS TIME, WILL CONTINUE TO MONITOR.
[2019-02-27 08:49] VITALS: BP 158/92
[2019-02-27] MEDS: FUROSEMIDE 40 MG/4 ML VIAL IV SCH (10:10)
[2019-02-27] MEDS: ULORIC 40 MG PO SCH (10:14)
[2019-02-27] MEDS: APIXABAN 2.5 MG TAB PO SCH ×2 (10:14→22:12)
[2019-02-27] MEDS: METOPROLOL TARTRATE 50 MG TAB PO SCH ×2 (10:15→22:13)
[2019-02-27] MEDS: ACETAMINOPHEN 500 MG TAB PO PRN ×2 (10:15→20:48)
[2019-02-27] MEDS: amLODIPine BESYLATE 5 MG TAB PO SCH (10:16)
[2019-02-27] MEDS: PANTOPRAZOLE 40 MG TAB PO SCH (10:17)
[2019-02-27] MEDS: DOCUSATE SOD 100 MG CAP PO SCH ×2 (10:17→22:12)
[2019-02-27] MEDS: predniSONE 20 MG TAB PO SCH (10:17)
--- NOTE | 2019-02-27 11:13 | NUR ---
SPOKE WITH DR. GRIGGS, INFORMED MD THAT PT BP IS RUNNING IN 150'S 160'S AND REQUESTED ADDITIONAL BP MEDICATION PRN. ALSO REQUESTED PRN PAIN MEDICATION. MD AWARE, NEW ORDERS FOR PERCOCET PRN AND DR GRIGGS REPORTS HE WILL ADJUST BP MEDICATIONS. WILL CONTINUE TO MONITOR.
[2019-02-27] MEDS: BUDESONIDE (INHALATION) 0.5 MG/2 ML NEB NEB SCH ×2 (12:03→19:10)
[2019-02-27 13:09] VITALS: BP 143/78
[2019-02-27 17:12] VITALS: BP 143/76
[2019-02-27 21:56] VITALS: BP 158/86
[2019-02-27] MEDS: ATORVASTATIN 20 MG TAB PO SCH (22:12)
[2019-02-27] MEDS: OXYCODONE W/ ACETAMINOPHEN 5/325MG TABLET PO PRN (22:14)
[2019-02-28] MEDS: LEVALBUTEROL HCL 1.25 MG/3 ML NEB NEB SCH ×5 (00:31→23:06)
[2019-02-28] MEDS: BUDESONIDE (INHALATION) 0.5 MG/2 ML NEB NEB SCH ×3 (00:31→18:44)
[2019-02-28] MEDS: IPRATROPIUM BROM 0.5 MG/2.5ML INH SOL NEB SCH ×5 (00:31→23:06)
[2019-02-28 05:19] VITALS: BP 160/81
--- NOTE | 2019-02-28 07:30 | NUR ---
Otpening Shift Note Assumed care of patient, awake and alert. No S/S of distress/SOB or pain. Instructed on POC and to call for assist PRN, will continue to monitor for changes Q1hr and PRN.
[2019-02-28 08:59] VITALS: BP 164/88
[2019-02-28] MEDS: APIXABAN 2.5 MG TAB PO SCH ×2 (09:57→22:00)
[2019-02-28] MEDS: PANTOPRAZOLE 40 MG TAB PO SCH (09:57)
[2019-02-28] MEDS: predniSONE 20 MG TAB PO SCH (09:57)
[2019-02-28] MEDS: DOCUSATE SOD 100 MG CAP PO SCH ×2 (09:58→22:03)
[2019-02-28] MEDS: METOPROLOL TARTRATE 50 MG TAB PO SCH ×2 (09:59→22:04)
[2019-02-28] MEDS: amLODIPine BESYLATE 5 MG TAB PO SCH (10:00)
[2019-02-28] MEDS: FUROSEMIDE 40 MG/4 ML VIAL IV SCH (10:01)
[2019-02-28] MEDS: ULORIC 40 MG PO SCH (10:18)
[2019-02-28] MEDS: OXYCODONE W/ ACETAMINOPHEN 5/325MG TABLET PO PRN (10:18)
--- NOTE | 2019-02-28 10:20 | NUR ---
PAIN PT C/O PAIN ON LEFT LATERAL SIDE OF ABDOMEN. PT STATED SHE STARTED FEELING IT LAST NIGHT AFTER SHE HAD A COUGHING FIT. PT STATED THAT PAIN ONLY COMES WHEN SHE'S COUGHING. PAIN MEDICATION GIVEN ORDERED. PT TOLERATED WELL. FAMILY AT BEDSIDE.
--- NOTE | 2019-02-28 12:00 | NUR ---
IV removal IV DC'd with clean sterile technique, catheter fully intact. Pressure dressing applied to site. Patient tolerated well. NOTE:
[2019-02-28] MEDS ORDERED: METHOCARBAMOL 500 MG TAB PO ONE (13:15)
[2019-02-28 13:17] VITALS: BP 153/82
--- NOTE | 2019-02-28 15:00 | NUR ---
IV insertion IV access obtained, via clean sterile technique by inserting 20 gauge catheter at RIGHT WRIST after 3 attempt(s) BY TWO RN'S. IV secured properly. No trauma to site. Patient tolerated well. NOTE:
[2019-02-28] MEDS ORDERED: guaiFENesin-DM 100/10mg/5ml SYR PO PRN (16:00)
[2019-02-28] MEDS ORDERED: ONDANSETRON HCL 4 MG/2 ML VIAL IV PRN (16:00)
--- NOTE | 2019-02-28 17:20 | NUR ---
NAUSEA PT C/O NAUSEA. PT GIVEN ZOFRAN ORDERED. TOLERATED WELL. NO DISTRESS NOTED. FAMILY AT BEDSIDE.
[2019-02-28 17:27] VITALS: BP 143/75
--- NOTE | 2019-02-28 19:30 | NUR ---
CLOSING NOTES REPORT GIVEN TO ALICIA RIDER. PT RESTING IN BED. NO DISTRESS NOTED. FAMILY AT BEDSIDE.
--- NOTE | 2019-02-28 20:00 | NUR ---
Opening Shift Note: Patient is resting in bed with daughter bedside. Patient as well as the daughter are aware of the pending procedure tomorrow. She is AOx4 and on 2L NC. No current complaints of pain at the moment. Will continue to monitor.
[2019-02-28] MEDS: ATORVASTATIN 20 MG TAB PO SCH (22:04)
--- NOTE | 2019-03-01 05:53 | NUR ---
Attempted to page Dr. Kingston to put in order for surgery but he cannot be paged until 8am. I informed charge nurse of this finding. Will endorse to day shift nurse.
[2019-03-01 05:55] VITALS: BP 150/83
[2019-03-01 06:08] LABS: Albumin 3.1 g/dL (3.4-5.0); Calcium 8.8 mg/dL (8.5-10.1); Potassium 4.4 mmol/L (3.5-5.1)
[2019-03-01 06:11] LABS: BUN/Creatinine Ratio 36.5; Bilirubin, Total 0.6 mg/dL (0.2-1.0); Phosphorus 3.9 mg/dL (2.5-4.90); Total Protein 7.3 g/dL (6.4-8.2)
[2019-03-01] MEDS: IPRATROPIUM BROM 0.5 MG/2.5ML INH SOL NEB SCH ×4 (06:31→22:45)
[2019-03-01] MEDS: LEVALBUTEROL HCL 1.25 MG/3 ML NEB NEB SCH ×4 (06:32→22:46)
[2019-03-01] MEDS ORDERED: diphenhdrAMINE HCL 50 MG/1 ML VL IV ONE (07:00)
[2019-03-01] MEDS ORDERED: IODIXANOL 320MG/ML 100ML BTL IV ONE ×2 (07:30→08:27)
[2019-03-01] MEDS ORDERED: IOHEXOL 350 MG/ML 100ML IJ ONE (07:40)
[2019-03-01] MEDS ORDERED: LIDOCAINE 2%HCL (LOCAL ANESTH.) INJ 20ML MDV ONE ×3 (07:41→11:10)
--- NOTE | 2019-03-01 07:59 | NUR ---
PATIENT DOWN TO TELECOMMUNICATIONS ENGINEER PATIENT TAKEN TO TELECOMMUNICATIONS ENGINEER WITH PORTABLE OXYGEN. NO S/S OF DISTRESS. CONSENTS AND CHECKLIST IN FRONT OF THE CHART. PATIENT CARE ENDORSED TO TELECOMMUNICATIONS ENGINEER WITH BED IN LOW LOCK POSITION.
[2019-03-01] MEDS ORDERED: ANGIOMAX 250 MG VIAL IV ONE (08:02)
[2019-03-01] MEDS ORDERED: fentaNYL CITRATE 100 MCG/2 ML VL ONE (08:03)
[2019-03-01] MEDS ORDERED: SODIUM CHL 0.9% 50 ML ONE (08:04)
[2019-03-01] MEDS ORDERED: MIDAZOLAM HCL 1MG/1ML-2 ML VIAL ONE (08:04)
[2019-03-01] MEDS ORDERED: methylPREDNISolone SOD SUCC 125 MG/2 ML VL ONE (08:26)
[2019-03-01] MEDS ORDERED: diphenhdrAMINE HCL 50 MG/1 ML VL ONE (08:26)
[2019-03-01] MEDS ORDERED: FAMOTIDINE (10MG/ML) 2ML VL IV ONE (08:28)
[2019-03-01 08:53] VITALS: BP 145/65
[2019-03-01] MEDS ORDERED: MIDAZOLAM HCL 1MG/1ML-2 ML VIAL IV ONE (09:30)
[2019-03-01] MEDS ORDERED: fentaNYL CITRATE 100 MCG/2 ML VL IV ONE (09:30)
[2019-03-01] MEDS ORDERED: LIDOCAINE VISCOUS 2% 15ML UD PO ONE (09:30)
[2019-03-01] MEDS: ULORIC 40 MG PO SCH (10:00)
[2019-03-01] MEDS: DOCUSATE SOD 100 MG CAP PO SCH ×2 (10:00→21:55)
[2019-03-01] MEDS: predniSONE 20 MG TAB PO SCH (10:00)
[2019-03-01] MEDS: METOPROLOL TARTRATE 50 MG TAB PO SCH ×2 (10:00→21:59)
[2019-03-01] MEDS: APIXABAN 2.5 MG TAB PO SCH ×2 (10:00→21:56)
[2019-03-01] MEDS: FUROSEMIDE 40 MG/4 ML VIAL IV SCH (10:00)
[2019-03-01] MEDS: PANTOPRAZOLE 40 MG TAB PO SCH (10:00)
[2019-03-01] MEDS: amLODIPine BESYLATE 5 MG TAB PO SCH (10:00)
[2019-03-01] MEDS ORDERED: hydrALAZINE HCL 20 MG/ML VL ONE (11:14)
--- NOTE | 2019-03-01 11:42 | NUR ---
Nutrition Follow-up Notes Wt.: 92.9 kg (+ 2 edema) Pt was off the floor when rounded this am. per records pt to have procedure at photo lab specialist today. pt with no distress noted currently on 2 gm na diet with adequate PO of 75% x 6 per RN doc Est. Needs IBW 59k-1770kcal (25-30kcal/kgBW), 47-59 gms pro (0.8-1.0 gms/kgBW r/t elev RFT). Will continue to monitor pertinent labs and reassess nutrient need prn. Will reassess per dry body wt Labs: bun 54 h, creat 1.48 h, glu 119 h, alb 3.1 l. Skin: Lee scale 21 low risk, skin intact per veterinary milk specialist. GI: Pt had 1 BM on 02/28 per veterinary milk specialist. PES: Altered nutrition related lab values r/t current/chronic medical condition aeb elev. RFT hyperglycemia Will continue to monitor PO intake, skin status, pertinent labs and weight trend. F/u in 3 to 5 days. Rec.: 1.) consider renal specific 50 gm protein along with current diet if RFt elev. 2) continue current plan of care
--- NOTE | 2019-03-01 12:00 | NUR ---
Respiratory note: SCHEDULED MED NEB TX NOT GIVEN DUE TO PATIENT BEING IN PROCEDURE. ALICIA BORJA WAS MADE AWARE.
[2019-03-01] MEDS ORDERED: ASPirin 325 MG TAB ONE (12:07)
[2019-03-01] MEDS ORDERED: CLOPIDOGREL 300 MG TAB ONE (12:07)
--- NOTE | 2019-03-01 14:15 | NUR ---
PATIENT BACK IN BED DRESSING TO RIGHT AND LEFT GROIN CLEAN, DRY, AND INTACT. LEFT FOOT, WEAK PEDAL PULSE. CALLED DIETARY FOR FOOD TRAY. WILL CONTINUE CARE.
[2019-03-01 17:18] VITALS: BP 141/74
[2019-03-01] MEDS: BUDESONIDE (INHALATION) 0.5 MG/2 ML NEB NEB SCH (19:16)
--- NOTE | 2019-03-01 19:35 | NUR ---
Opening Shift Note Assumed care of patient, awake and alert oriented x4. No S/S of distress/SOB noted. Bed is in lowest locked position with bed rails up x2 and call light is within reach of the patient. Bed alarm is armed. Instructed on POC and to call for assist PRN. Addendum: 03/02/19 at 0100 by Libia Castañeda RN RN Dressings are dry and intact on left and right groin.
[2019-03-01] MEDS: ATORVASTATIN 20 MG TAB PO SCH (21:55)
[2019-03-01 22:00] VITALS: BP 138/77
[2019-03-01 23:40] VITALS: BP 156/86
[2019-03-02 05:36] VITALS: BP 158/68
[2019-03-02 06:41] LABS: Albumin 2.8 g/dL (3.4-5.0); Calcium 8.6 mg/dL (8.5-10.1); Potassium 4.3 mmol/L (3.5-5.1)
[2019-03-02 06:43] LABS: BUN/Creatinine Ratio 32.9
[2019-03-02 06:46] LABS: Bilirubin, Total 0.6 mg/dL (0.2-1.0); Total Protein 6.9 g/dL (6.4-8.2)
[2019-03-02] MEDS: IPRATROPIUM BROM 0.5 MG/2.5ML INH SOL NEB SCH ×3 (07:06→18:51)
[2019-03-02] MEDS: LEVALBUTEROL HCL 1.25 MG/3 ML NEB NEB SCH ×3 (07:07→18:51)
[2019-03-02] MEDS: BUDESONIDE (INHALATION) 0.5 MG/2 ML NEB NEB SCH ×2 (07:12→18:51)
[2019-03-02 07:36] VITALS: BP 148/88
[2019-03-02] MEDS: FUROSEMIDE 40 MG/4 ML VIAL IV SCH (09:41)
[2019-03-02] MEDS: predniSONE 20 MG TAB PO SCH (09:41)
[2019-03-02] MEDS: PANTOPRAZOLE 40 MG TAB PO SCH (09:42)
[2019-03-02] MEDS: DOCUSATE SOD 100 MG CAP PO SCH ×2 (09:42→21:39)
[2019-03-02] MEDS: ULORIC 40 MG PO SCH (09:42)
[2019-03-02] MEDS: CLOPIDOGREL BISULFATE 75 MG TAB PO SCH (09:42)
[2019-03-02] MEDS: APIXABAN 2.5 MG TAB PO SCH ×2 (09:42→21:39)
[2019-03-02] MEDS: amLODIPine BESYLATE 5 MG TAB PO SCH (09:43)
[2019-03-02] MEDS: METOPROLOL TARTRATE 50 MG TAB PO SCH ×2 (09:43→21:48)
[2019-03-02 11:44] VITALS: BP 146/76
[2019-03-02 16:19] VITALS: BP 150/80
--- NOTE | 2019-03-02 17:01 | NUR ---
Patient blood in sputum Patient stated it may have come from her nose. Informed patient to report to nurse if any bleeding occurs. Patient verbalized understanding. Will inform MD.
--- NOTE | 2019-03-02 17:02 | NUR ---
Paged hospitalist to report blood in sputum. Awaiting call back.
--- NOTE | 2019-03-02 17:30 | NUR ---
SPOKE WITH MD IVORY GRIGGS OF PATIENT BLOOD IN SPUTUM, POSSIBLY FROM NOSE S/P HEART CATH. NO NEW ORDERS AT THIS TIME. WILL CONTINUE CARE.
--- NOTE | 2019-03-02 18:30 | NUR ---
RE-PAGED HOSPITALIST CONCERNING BLOOD IN SPUTUM, AWAITING CALL BACK.
--- NOTE | 2019-03-02 19:15 | NUR ---
CLOSING NOTE ENDORSED CARE TO RAIL TRANSIT OPERATOR RN. RN AWARE OF PATIENT POSSIBLY COUGHING UP BLOOD IN SPUTUM, SEE NOTE. PAGE OUT TO HOSPITALIST, NO RETURN CALL. BED IN LOW LOCK POSITION, CALL LIGHT IN REACH. NO S/S OF DISTRESS.
--- NOTE | 2019-03-02 19:59 | NUR ---
HOSPITALIST JAJA PATIENT IS ON PLAVIX AND ELIQUIS FOLLOWING AN ANGIOPLASTY. PATIENT STATES SHE WAS BLEEDING FROM HER NOSE AND POSSIBLY FROM HER MOUTH EARLIER TODAY. NO CBC PRIOR TO 02/27/19 AND NO PT/PTT PERFORMED DURING THIS ADMISSION. FAMILY CONCERNED AND REQUESTING ADDITIONAL LABS TO BE PERFORMED. WILL AWAIT CALL BACK OR ORDERS TO BE PLACED.
--- NOTE | 2019-03-02 20:00 | NUR ---
OPENING NOTE RECEIVED REPORT FROM DAYSHIFT RN. ASSUMING ROLE OF CARE OF PATIENT AT THIS TIME. PATIENT SHOWING NO SIGN OF DISTRESS, SHORTNESS OF BREATH, AND PATIENT DENIES ANY PAIN AT THIS TIME. PATIENT EDUCATED ON PLAN OF CARE FOR THE NIGHT AND PATIENT VERBALIZED UNDERSTANDING. BED LOWERED, CALL LIGHT WITHIN REACH, AND PATIENT WILL BE ROUNDED ON EVERY HOUR AND NEEDED.
[2019-03-02] MEDS: ATORVASTATIN 20 MG TAB PO SCH (21:39)
[2019-03-02 22:00] VITALS: BP 142/85
[2019-03-03] MEDS: LEVALBUTEROL HCL 1.25 MG/3 ML NEB NEB SCH ×3 (00:55→12:00)
[2019-03-03] MEDS: IPRATROPIUM BROM 0.5 MG/2.5ML INH SOL NEB SCH ×3 (00:55→12:00)
[2019-03-03 05:00] VITALS: BP 157/80
[2019-03-03 06:13] LABS: Albumin 3.3 g/dL (3.4-5.0); BUN/Creatinine Ratio 30.9; Calcium 9.1 mg/dL (8.5-10.1); Potassium 3.7 mmol/L (3.5-5.1)
[2019-03-03] MEDS: BUDESONIDE (INHALATION) 0.5 MG/2 ML NEB NEB SCH (06:14)
[2019-03-03 06:23] LABS: Bilirubin, Total 0.9 mg/dL (0.2-1.0); Total Protein 7.8 g/dL (6.4-8.2)
[2019-03-03 09:00] VITALS: BP 146/69
[2019-03-03] MEDS: FUROSEMIDE 40 MG/4 ML VIAL IV SCH (09:31)
[2019-03-03] MEDS: APIXABAN 2.5 MG TAB PO SCH (09:32)
[2019-03-03] MEDS: CLOPIDOGREL BISULFATE 75 MG TAB PO SCH (09:32)
[2019-03-03] MEDS: PANTOPRAZOLE 40 MG TAB PO SCH (09:32)
[2019-03-03] MEDS: DOCUSATE SOD 100 MG CAP PO SCH (09:32)
[2019-03-03] MEDS: amLODIPine BESYLATE 5 MG TAB PO SCH (09:33)
[2019-03-03] MEDS: METOPROLOL TARTRATE 50 MG TAB PO SCH (09:34)
[2019-03-03] MEDS: ULORIC 40 MG PO SCH (09:43)
[2019-03-03] MEDS ORDERED: predniSONE 20 MG TAB PO SCH (10:00)
[2019-03-03 13:00] VITALS: BP 139/83
[2019-03-03 13:32] VITALS: BP 145/82
--- NOTE | 2019-03-03 14:24 | NUR ---
Discharge instructions given as ordered. Encourage to follow up with PMD as instructed. All questions and concerns addressed. Patient verbalized understanding. Medication reconciliation form completed and copy given to patient. Home medications held in Pharmacy returned to patient. IV removed with catheter intact, pressure dressing applied. Telemetry unit returned to ICU. Patient taken to vehicle via wheelchair with all personal belongings, accompanied by staff and family member. No distress noted at time of departure.
== END 2019-03-03 14:24 | disposition home or self-care (01) | DRG 981 ==
LOC: EDBD 14:03 → ER 14:03 → TELE 15:03 → TELE-WESTW 18:53
PROVIDERS: ADMIT Internal Medicine; ATTEND Internal Medicine
PROC: B2111ZZ Fluoroscopy of Multiple Coronary Arteries using Low Osmolar Contrast (ICD-10-PCS; principal; 2019-03-01)
PROC: 4A023N8 Measurement of Cardiac Sampling and Pressure, Bilateral, Percutaneous Approach (ICD-10-PCS; 2019-03-01)
PROC: B2151ZZ Fluoroscopy of Left Heart using Low Osmolar Contrast (ICD-10-PCS; 2019-03-01)
PROC: 027034Z Dilation of Coronary Artery, One Artery with Drug-eluting Intraluminal Device, Percutaneous Approach (ICD-10-PCS; 2019-03-01)
PROC: B246ZZ4 Ultrasonography of Right and Left Heart, Transesophageal (ICD-10-PCS; 2019-03-01)
PROC: B41G1ZZ Fluoroscopy of Left Lower Extremity Arteries using Low Osmolar Contrast (ICD-10-PCS; 2019-03-01)
PROC: B41F1ZZ Fluoroscopy of Right Lower Extremity Arteries using Low Osmolar Contrast (ICD-10-PCS; 2019-03-01)
DX: J96.00 Acute respiratory failure, unspecified whether with hypoxia or hypercapnia (principal); I50.23 Acute on chronic systolic (congestive) heart failure; N17.0 Acute kidney failure with tubular necrosis; I13.0 Hypertensive heart and chronic kidney disease with heart failure and stage 1 through stage 4 chronic kidney disease, or unspecified chronic kidney disease; J44.1 Chronic obstructive pulmonary disease with (acute) exacerbation; D68.69 Other thrombophilia; I48.91 Unspecified atrial fibrillation; N18.3 Chronic kidney disease, stage 3 (moderate); M10.9 Gout, unspecified; I73.9 Peripheral vascular disease, unspecified; I25.10 Atherosclerotic heart disease of native coronary artery without angina pectoris; I25.5 Ischemic cardiomyopathy; I35.8 Other nonrheumatic aortic valve disorders; M19.90 Unspecified osteoarthritis, unspecified site; I27.20 Pulmonary hypertension, unspecified; Z79.01 Long term (current) use of anticoagulants; Z82.3 Family history of stroke; Z82.49 Family history of ischemic heart disease and other diseases of the circulatory system; Z86.73 Personal history of transient ischemic attack (TIA), and cerebral infarction without residual deficits; Z87.891 Personal history of nicotine dependence; Z90.710 Acquired absence of both cervix and uterus; Z91.041 Radiographic dye allergy status; Z98.61 Coronary angioplasty status; Z99.81 Dependence on supplemental oxygen; Z88.2 Allergy status to sulfonamides; Z88.7 Allergy status to serum and vaccine
CPT/HCPCS: 36415; 36600; 71045; 71250; 76775; 80048; 80053; 80061; 81001; 82306; 82570; 82805; 83036; 83735; 83880; 83970; 84100; 84300; 84484; 84550; 85025; 87040; 87086; 93312; 94640; 96365; 96375; 99152; A6257; C1751; C1874; C1887; G0378; J0696; J2250; J2405; J3490; Q9967

== ENCOUNTER → 2019-03-08 | Outpatient (CLI) | payer OTHER ==
[~2019-03-08] MED LIST changes: -AMLO10TA12 PO; -BACL20TA PO; +CARV25TA55 PO; +CETI-120 PO; -DIPH25CA66 PO; -FLUT110A INH; +FURO40TA4 PO; -HYDR500T13 PO; +ISOSTAB OR; -METO100T87 PO
[2019-03-08 09:05] LABS: Potassium 3.9 mmol/L (3.5-5.1)
[2019-03-08 09:09] LABS: BUN/Creatinine Ratio 21.3
== END | disposition home or self-care (01) ==
LOC: LAB 08:32
PROVIDERS: ATTEND Internal Medicine
DX: K21.9 Gastro-esophageal reflux disease without esophagitis (principal); E79.0 Hyperuricemia without signs of inflammatory arthritis and tophaceous disease
CPT/HCPCS: 36415; 80048

== ENCOUNTER → 2019-03-09 | Outpatient (CLI) | payer OTHER | END | disposition home or self-care (01) | LOC: XY 11:43 | PROVIDERS: ATTEND Internal Medicine | DX: I65.23 Occlusion and stenosis of bilateral carotid arteries (principal); I73.9 Peripheral vascular disease, unspecified; I11.0 Hypertensive heart disease with heart failure; I50.9 Heart failure, unspecified; Z87.891 Personal history of nicotine dependence | CPT/HCPCS: 93886; 93925 ==

== ENCOUNTER → 2019-04-09 | Outpatient (CLI) | payer OTHER | END | disposition home or self-care (01) | LOC: CARD WEST 09:12 | PROVIDERS: ATTEND Internal Medicine | DX: I08.3 Combined rheumatic disorders of mitral, aortic and tricuspid valves (principal); I25.10 Atherosclerotic heart disease of native coronary artery without angina pectoris | CPT/HCPCS: 93306 ==

== ENCOUNTER → 2019-04-09 | Outpatient (CLI) | payer OTHER ==
[2019-04-09 10:09] LABS: Potassium 4.1 mmol/L (3.5-5.1)
[2019-04-09 10:15] LABS: Albumin 3.2 g/dL (3.4-5.0); Bilirubin, Total 0.6 mg/dL (0.2-1.0); Total Protein 7.5 g/dL (6.4-8.2)
== END | disposition home or self-care (01) ==
LOC: LAB 08:51
PROVIDERS: ATTEND Internal Medicine
DX: I13.0 Hypertensive heart and chronic kidney disease with heart failure and stage 1 through stage 4 chronic kidney disease, or unspecified chronic kidney disease (principal); I50.9 Heart failure, unspecified; N18.3 Chronic kidney disease, stage 3 (moderate); I73.9 Peripheral vascular disease, unspecified; I65.29 Occlusion and stenosis of unspecified carotid artery
CPT/HCPCS: 36415; 80053

== ENCOUNTER → 2019-05-12 | Outpatient (CLI) | payer OTHER | END | disposition home or self-care (01) | LOC: XY 08:23 | PROVIDERS: ATTEND Internal Medicine | DX: I74.3 Embolism and thrombosis of arteries of the lower extremities (principal); I73.9 Peripheral vascular disease, unspecified | CPT/HCPCS: 93925 ==

== ENCOUNTER → 2019-05-27 | Outpatient (CLI) | payer OTHER ==
[2019-05-27 16:07] LABS: Basophils # (auto) 0.1 uL; Basophils % (auto) 0.9 % (0.0-2.0); Eosinophils # (auto) 0.7 uL; Eosinophils % (auto) 10.2 % (0.0-7.0); Hemoglobin 13.6 g/dL (12.2-16.2); Lymphocytes # (auto) 1.1 uL; Lymphocytes % (auto) 16.2 % (10.0-50.0); Mean Corpuscular Hemoglobin 29.8 pg (28.0-32.0); Mean Corpuscular Hgb Conc. 33.2 g/dL (32.0-36.0); Mean Corpuscular Volume 89.8 fL (80.0-100.0); Monocytes # (auto) 0.9 uL; Monocytes % (auto) 13.5 % (0.0-12.0); Neutrophils # (auto) 4.1 uL; Neutrophils % (auto) 59.2 % (37.0-80.0); Platelet Count (auto) 156 10^3/uL (140-450); Red Blood Cells 4.57 10^6/uL (4.0-5.20); Red Cell Distribution Width 15.4 % (11.8-14.3)
[2019-05-27 16:11] LABS: Albumin 3.5 g/dL (3.4-5.0); BUN/Creatinine Ratio 18.9; Calcium 9.1 mg/dL (8.5-10.1); Potassium 3.9 mmol/L (3.5-5.1)
[2019-05-27 16:15] LABS: Bilirubin, Total 0.8 mg/dL (0.2-1.0)
== END | disposition home or self-care (01) ==
LOC: LAB 15:43
PROVIDERS: ATTEND Internal Medicine
DX: I13.0 Hypertensive heart and chronic kidney disease with heart failure and stage 1 through stage 4 chronic kidney disease, or unspecified chronic kidney disease (principal); I50.9 Heart failure, unspecified; N18.3 Chronic kidney disease, stage 3 (moderate)
CPT/HCPCS: 36415; 80053; 80061; 85025

== ENCOUNTER → 2019-06-22 | Outpatient (CLI) | payer OTHER ==
[2019-06-22 09:24] LABS: Basophils # (auto) 0.1 uL; Basophils % (auto) 1.4 % (0.0-2.0); Eosinophils # (auto) 0.3 uL; Eosinophils % (auto) 5.4 % (0.0-7.0); Hematocrit 42.8 % (36.0-46.0); Hemoglobin 13.9 g/dL (12.2-16.2); Lymphocytes # (auto) 0.8 uL; Mean Corpuscular Hemoglobin 29.1 pg (28.0-32.0); Mean Corpuscular Hgb Conc. 32.5 g/dL (32.0-36.0); Mean Corpuscular Volume 89.6 fL (80.0-100.0); Monocytes # (auto) 0.6 uL; Monocytes % (auto) 10.6 % (0.0-12.0); Neutrophils # (auto) 3.9 uL; Neutrophils % (auto) 68.6 % (37.0-80.0); Platelet Count (auto) 148 10^3/uL (140-450); Red Blood Cells 4.78 10^6/uL (4.0-5.20); Red Cell Distribution Width 15.6 % (11.8-14.3); White Blood Cell 5.6 10^3/uL (4.4-10.8)
[2019-06-22 09:25] LABS: Urine Blood Negative /uL (Negative); Urine Specific Gravity 1.011 (1.001-1.035)
[2019-06-22 10:04] LABS: Albumin 3.4 g/dL (3.4-5.0); BUN/Creatinine Ratio 17.6; Potassium 4.3 mmol/L (3.5-5.1); Uric Acid 4.8 mg/dL (2.6-6.0)
[2019-06-22 10:09] LABS: Creatinine, Urine 62.3 mg/dL (30.0-125.0); Protein, Urine 25.7 mg/dL (0.0-11.9)
== END | disposition home or self-care (01) ==
LOC: LAB 09:05
PROVIDERS: ATTEND Internal Medicine
DX: E55.9 Vitamin D deficiency, unspecified (principal); R80.9 Proteinuria, unspecified; M10.9 Gout, unspecified; N39.0 Urinary tract infection, site not specified; E21.3 Hyperparathyroidism, unspecified; I13.0 Hypertensive heart and chronic kidney disease with heart failure and stage 1 through stage 4 chronic kidney disease, or unspecified chronic kidney disease; N18.3 Chronic kidney disease, stage 3 (moderate); I50.9 Heart failure, unspecified
CPT/HCPCS: 36415; 80069; 81003; 82306; 82570; 83970; 84156; 84550; 85025

== ENCOUNTER → 2019-11-01 | Outpatient (CLI) | payer OTHER ==
[2019-11-01 10:51] LABS: Basophils # (auto) 0.1 uL; Basophils % (auto) 0.8 % (0.0-2.0); Eosinophils # (auto) 0.2 uL; Eosinophils % (auto) 2.9 % (0.0-7.0); Hematocrit 40.3 % (36.0-46.0); Hemoglobin 13.6 g/dL (12.2-16.2); Lymphocytes # (auto) 0.9 uL; Mean Corpuscular Hemoglobin 30.5 pg (28.0-32.0); Mean Corpuscular Hgb Conc. 33.9 g/dL (32.0-36.0); Mean Corpuscular Volume 89.9 fL (80.0-100.0); Monocytes # (auto) 0.8 uL; Neutrophils # (auto) 5.4 uL; Neutrophils % (auto) 73.3 % (37.0-80.0); Platelet Count (auto) 189 10^3/uL (140-450); Red Blood Cells 4.48 10^6/uL (4.0-5.20); Red Cell Distribution Width 16.7 % (11.8-14.3); White Blood Cell 7.3 10^3/uL (4.4-10.8)
[2019-11-01 10:59] LABS: Urine Bacteria NONE SEEN /hpf (None Seen); Urine Blood 1+ /uL (Negative); Urine Specific Gravity 1.016 (1.001-1.035); Urine WBC 1946 /hpf (0 - 5); Urine WBC Clumps PRESENT /hpf (None Seen)
[2019-11-01 11:19] LABS: Albumin 3.6 g/dL (3.4-5.0); BUN/Creatinine Ratio 14.3; Calcium 9.4 mg/dL (8.5-10.1); Phosphorus 2.8 mg/dL (2.5-4.90); Uric Acid 3.8 mg/dL (2.6-6.0)
[2019-11-01 11:28] LABS: Protein, Urine 29.4 mg/dL (0.0-11.9)
== END | disposition home or self-care (01) ==
LOC: LAB 09:55
PROVIDERS: ATTEND Internal Medicine
DX: E55.9 Vitamin D deficiency, unspecified (principal); R80.9 Proteinuria, unspecified
CPT/HCPCS: 36415; 80069; 81001; 82306; 82570; 83970; 84156; 84550; 85025

== ENCOUNTER → 2019-11-25 | Outpatient (CLI) | payer OTHER ==
[2019-11-25 09:13] LABS: Basophils # (auto) 0.1 uL; Basophils % (auto) 1.1 % (0.0-2.0); Eosinophils # (auto) 0.2 uL; Eosinophils % (auto) 2.6 % (0.0-7.0); Hematocrit 40.2 % (36.0-46.0); Hemoglobin 13.4 g/dL (12.2-16.2); Lymphocytes # (auto) 0.7 uL; Lymphocytes % (auto) 11.2 % (10.0-50.0); Mean Corpuscular Hgb Conc. 33.3 g/dL (32.0-36.0); Mean Corpuscular Volume 89.9 fL (80.0-100.0); Monocytes # (auto) 0.7 uL; Neutrophils # (auto) 4.8 uL; Neutrophils % (auto) 74.1 % (37.0-80.0); Platelet Count (auto) 202 10^3/uL (140-450); Red Blood Cells 4.47 10^6/uL (4.0-5.20); Red Cell Distribution Width 15.5 % (11.8-14.3); White Blood Cell 6.4 10^3/uL (4.4-10.8)
[2019-11-25 09:34] LABS: Albumin 3.5 g/dL (3.4-5.0); Calcium 9.1 mg/dL (8.5-10.1); Potassium 3.8 mmol/L (3.5-5.1)
[2019-11-25 09:39] LABS: BUN/Creatinine Ratio 17.8; Bilirubin, Total 0.9 mg/dL (0.2-1.0); Total Protein 8.3 g/dL (6.4-8.2)
== END | disposition home or self-care (01) ==
LOC: LAB 08:56
PROVIDERS: ATTEND Internal Medicine
DX: R91.8 Other nonspecific abnormal finding of lung field (principal)
CPT/HCPCS: 36415; 80053; 83615; 85025

== ENCOUNTER 2019-12-29 12:45 | Inpatient (IN) | payer OTHER ==
[~2019-12-29] VITALS: Ht 167.6 cm; Wt 80.1 kg
[2019-12-29 14:07] LABS: Basophils # (auto) 0.1 10 ^3/uL (0-0.2); Basophils % (auto) 1.3 % (0.0-2.0); Eosinophils # (auto) 0.2 10 ^3/uL (0-0.8); Hematocrit 38.4 % (36.0-46.0); Hemoglobin 12.8 g/dL (12.2-16.2); Lymphocytes # (auto) 1.1 10 ^3/uL (0.4-5.4); Lymphocytes % (auto) 19.1 % (10.0-50.0); Mean Corpuscular Hemoglobin 29.9 pg (28.0-32.0); Mean Corpuscular Hgb Conc. 33.3 g/dL (32.0-36.0); Mean Corpuscular Volume 89.9 fL (80.0-100.0); Monocytes # (auto) 0.8 10 ^3/uL (0-1.3); Monocytes % (auto) 13.6 % (0.0-12.0); Neutrophils # (auto) 3.7 10 ^3/uL (1.6-8.6); Platelet Count (auto) 172 10^3/uL (140-450); Red Blood Cells 4.27 10^6/uL (4.0-5.20); Red Cell Distribution Width 15.3 % (11.8-14.3); White Blood Cell 5.9 10^3/uL (4.4-10.8)
[2019-12-29 14:21] LABS: Potassium 3.8 mmol/L (3.5-5.1)
[2019-12-29 14:23] LABS: INR 1.14 (0.9-1.15); Partial Thromboplastin Time 32.3 sec (23.64-32.05)
[2019-12-29 14:25] LABS: Albumin 3.2 g/dL (3.4-5.0); BUN/Creatinine Ratio 16.8; Calcium 8.9 mg/dL (8.5-10.1)
[2019-12-29 14:27] LABS: Bilirubin, Total 0.6 mg/dL (0.2-1.0)
[2019-12-29 14:33] LABS: Urine Bacteria MOD /hpf (None Seen); Urine Blood 3+ /uL (Negative); Urine Specific Gravity 1.011 (1.001-1.035); Urine WBC 968 /hpf (0 - 5)
[2019-12-29] MEDS ORDERED: cefTRIAXone 1GM/50ML D5W 50 ML IV ONE (16:45)
[2019-12-29] MEDS ORDERED: HYDROcodone-ACET 5/325MG TAB PO PRN (19:45)
[2019-12-29] MEDS ORDERED: MORPHINE SULF INJ 2 MG/ML SYRINGE 1ML IV PRN ×2 (19:45)
[2019-12-29] MEDS ORDERED: NITROGLYCERIN 0.4 MG SL TAB SL PRN (19:45)
[2019-12-29] MEDS ORDERED: ONDANSETRON HCL 4 MG/2 ML VIAL IV PRN (19:45)
[2019-12-29] MEDS ORDERED: ISOSTAB OR (20:51)
[2019-12-29] MEDS ORDERED: MULT-688 PO (20:51)
[2019-12-29] MEDS ORDERED: FEBU40TA PO (20:51)
[2019-12-29] MEDS ORDERED: TIOT1AER IN (20:51)
[2019-12-29] MEDS ORDERED: FER325T PO (20:51)
[2019-12-29] MEDS ORDERED: ATOR20TA50 PO (20:51)
[2019-12-29] MEDS ORDERED: PANT1INJ3 IV (20:51)
[2019-12-29] MEDS ORDERED: POTA10TA51 PO (20:51)
[2019-12-29] MEDS ORDERED: APIX2.5T PO (20:51)
[2019-12-29] MEDS ORDERED: CETI-120 PO (20:51)
[2019-12-29] MEDS ORDERED: FURO40TA4 PO (20:51)
[2019-12-29] MEDS ORDERED: CHOL20007 PO (20:51)
[2019-12-29] MEDS ORDERED: CLOP75TA41 PO (20:51)
[2019-12-29 21:10] VITALS: BP 157/69
--- NOTE | 2019-12-29 21:10 | NUR ---
Telemetry admit from ER [facility] admitted to Telemetry unit after SBAR received. Patient oriented to Daniela Andrea primary RN, unit, room, bed, and unit policies regarding patient care and visiting hours. Patient now on continuous telemetry monitoring, tele box # [id number] and telemetry reading on arrival to unit is [id number]. Patient placed on bedside oxygen, weighed by bedscale and encouraged to call if they need something. All questions and concerns addressed, Family at bedside, patient verbalized understanding.
[2019-12-29] MEDS: APIXABAN 2.5 MG TAB PO SCH (22:00)
[2019-12-29] MEDS: DOCUSATE SOD 100 MG CAP PO SCH (22:17)
[2019-12-29] MEDS: CARVEDILOL 3.125 MG TAB PO SCH (22:18)
[2019-12-29] MEDS: ATORVASTATIN 20 MG TAB PO SCH (22:18)
[2019-12-29] MEDS: PANTOPRAZOLE 40 MG TAB PO SCH (22:19)
[2019-12-29] MEDS: ACETAMINOPHEN 500 MG TAB PO PRN (22:24)
[2019-12-30 05:53] VITALS: BP 126/54
[2019-12-30 05:59] LABS: Basophils # (auto) 0.1 10 ^3/uL (0-0.2); Basophils % (auto) 1.2 % (0.0-2.0); Eosinophils # (auto) 0.2 10 ^3/uL (0-0.8); Eosinophils % (auto) 4.5 % (0.0-7.0); Hematocrit 38.8 % (36.0-46.0); Hemoglobin 12.7 g/dL (12.2-16.2); Lymphocytes # (auto) 0.9 10 ^3/uL (0.4-5.4); Lymphocytes % (auto) 19.3 % (10.0-50.0); Mean Corpuscular Hemoglobin 30.1 pg (28.0-32.0); Mean Corpuscular Hgb Conc. 32.7 g/dL (32.0-36.0); Mean Corpuscular Volume 91.8 fL (80.0-100.0); Monocytes # (auto) 0.8 10 ^3/uL (0-1.3); Monocytes % (auto) 15.8 % (0.0-12.0); Neutrophils # (auto) 2.8 10 ^3/uL (1.6-8.6); Neutrophils % (auto) 59.2 % (37.0-80.0); Nucleated Red Blood Cells % 0.2 %; Platelet Count (auto) 153 10^3/uL (140-450); Red Blood Cells 4.23 10^6/uL (4.0-5.20); White Blood Cell 4.8 10^3/uL (4.4-10.8)
[2019-12-30 06:20] LABS: BUN/Creatinine Ratio 20.2; Calcium 8.8 mg/dL (8.5-10.1); Potassium 3.5 mmol/L (3.5-5.1)
--- NOTE | 2019-12-30 07:30 | NUR ---
OPENING NOTE ASSUMED CARE OF PT. ALERT AND ORIENTED. NO S/S OF SOB/DISTRESS NOTED. SAFETY PRECAUTIONS IN PLACE. BED SET TO LOWEST POSITION/LOCKED, BEDSIDE RAILS UP X2, CALL LIGHT WITHIN REACH. INSTRUCTED PT TO CALL FOR ASSISTANCE. UPDATED ON POC. PT VERBALIZED UNDERSTANDING. WILL CONTINUE TO MONITOR Q1HR AND PRN.
[2019-12-30 09:00] VITALS: BP 119/57
[2019-12-30] MEDS: PANTOPRAZOLE 40 MG TAB PO SCH ×2 (09:32→21:56)
[2019-12-30] MEDS: DOCUSATE SOD 100 MG CAP PO SCH ×2 (09:33→21:55)
[2019-12-30] MEDS: CARVEDILOL 3.125 MG TAB PO SCH ×2 (09:34→21:56)
[2019-12-30] MEDS: cefTRIAXone 1GM/50ML D5W 50 ML IV SCH (09:35)
[2019-12-30] MEDS: APIXABAN 2.5 MG TAB PO SCH ×2 (09:37→21:56)
[2019-12-30 11:12] LABS: Cholesterol 80 mg/dL (< 200); HDL Cholesterol 33 mg/dL (40-59); LDL Cholesterol 42 mg/dL (< 100); Triglycerides 113 mg/dL (< 150)
[2019-12-30 13:00] VITALS: BP 147/90
[2019-12-30] MEDS: STIOLTO RESPIMAT IN SCH (15:18)
[2019-12-30 16:42] VITALS: BP 139/66
--- NOTE | 2019-12-30 19:25 | NUR ---
Opening Shift Note Assumed care of patient, awake and alert x4. No S/S of distress/SOB or pain. Call light is within reach, side rails up x2, bed is in the lowest position, brakes are locked, walking cane is within reach. Instructed on POC and to call for assist PRN. All questions and concerns answered, will continue to monitor for changes Q1hr and PRN.
--- NOTE | 2019-12-30 21:45 | NUR ---
Patient is complaining of a headache, 5/0-10 pain level. [place] 5 is available for moderate pain, but she is requesting Tylenol. Will medicate and continue to monitor.
[2019-12-30] MEDS: ACETAMINOPHEN 500 MG TAB PO PRN (21:56)
[2019-12-30] MEDS: ATORVASTATIN 20 MG TAB PO SCH (21:56)
[2019-12-30] MEDS ORDERED: PATIENTS OWN MEDICATION OP SCH (22:00)
[2019-12-30 22:36] VITALS: BP 140/71
--- NOTE | 2019-12-30 23:00 | NUR ---
Pain reassessment Patient is resting in bed. No S/S of distress or pain noted. Call light is within reach. Will continue to monitor.
--- NOTE | 2019-12-31 05:10 | NUR ---
UA/bacterial culture collected and sent to lab via bullet system.
[2019-12-31 05:27] VITALS: BP 138/67
[2019-12-31 05:41] LABS: Urine Bacteria NONE SEEN /hpf (None Seen); Urine Blood 2+ /uL (Negative); Urine WBC 38 /hpf (0 - 5)
[2019-12-31 06:43] LABS: Basophils # (auto) 0.1 10 ^3/uL (0-0.2); Eosinophils # (auto) 0.2 10 ^3/uL (0-0.8); Eosinophils % (auto) 3.9 % (0.0-7.0); Hemoglobin 13.2 g/dL (12.2-16.2); Lymphocytes % (auto) 17.7 % (10.0-50.0); Mean Corpuscular Hemoglobin 29.7 pg (28.0-32.0); Mean Corpuscular Hgb Conc. 33.1 g/dL (32.0-36.0); Mean Corpuscular Volume 89.7 fL (80.0-100.0); Monocytes # (auto) 0.8 10 ^3/uL (0-1.3); Monocytes % (auto) 14.4 % (0.0-12.0); Neutrophils # (auto) 3.4 10 ^3/uL (1.6-8.6); Platelet Count (auto) 162 10^3/uL (140-450); Red Blood Cells 4.46 10^6/uL (4.0-5.20); Red Cell Distribution Width 14.9 % (11.8-14.3); White Blood Cell 5.5 10^3/uL (4.4-10.8)
[2019-12-31 07:00] LABS: Albumin 3.1 g/dL (3.4-5.0); Calcium 9.1 mg/dL (8.5-10.1); Magnesium 2.3 mg/dL (1.6-2.6); Potassium 3.7 mmol/L (3.5-5.1)
[2019-12-31 07:03] LABS: Bilirubin, Total 0.6 mg/dL (0.2-1.0); Total Protein 7.7 g/dL (6.4-8.2)
[2019-12-31 07:14] LABS: BUN/Creatinine Ratio 17.3
--- NOTE | 2019-12-31 07:30 | NUR ---
Opening Shift Note Assumed care of patient, awake and alert. No S/S of distress/SOB or pain reported at this time. Wilks patent, draining via gravity, free of kinks, Instructed on POC and to call for assist PRN, call light within reach, bed alarm on, able to demonstrate how to call for assist, IV patent to right FA, will continue to monitor for changes Q1hr and PRN.
[2019-12-31 08:30] VITALS: BP 135/85
[2019-12-31] MEDS ORDERED: STIOLTO RESPIMAT IN SCH (09:15)
[2019-12-31] MEDS: STIOLTO RESPIMAT IN SCH (10:00)
[2019-12-31] MEDS: APIXABAN 2.5 MG TAB PO SCH ×2 (10:00→21:52)
[2019-12-31] MEDS: cefTRIAXone 1GM/50ML D5W 50 ML IV SCH (11:07)
[2019-12-31] MEDS: PANTOPRAZOLE 40 MG TAB PO SCH ×2 (11:07→22:04)
[2019-12-31] MEDS: DOCUSATE SOD 100 MG CAP PO SCH ×2 (11:07→22:00)
[2019-12-31] MEDS: CARVEDILOL 3.125 MG TAB PO SCH ×2 (11:08→22:04)
[2019-12-31 13:00] VITALS: BP 152/68
[2019-12-31 17:12] VITALS: BP 143/73
[2019-12-31] MEDS ORDERED: DIPH25CA66 PO (18:55)
[2019-12-31] MEDS ORDERED: DOCU100C8 PO (18:55)
[2019-12-31] MEDS ORDERED: MULT-688 PO (18:55)
[2019-12-31] MEDS ORDERED: CALC600T57 PO (18:55)
[2019-12-31] MEDS ORDERED: TIOT1AER IN (18:55)
[2019-12-31] MEDS ORDERED: PANT40T PO (18:55)
[2019-12-31] MEDS ORDERED: ACET-1158 PO (18:55)
[2019-12-31] MEDS ORDERED: SIME125C54 PO (18:55)
[2019-12-31] MEDS ORDERED: ISOSTAB PO (18:55)
--- NOTE | 2019-12-31 19:25 | NUR ---
Opening Shift Note Assumed care of patient, awake and alert x4. No S/S of distress/SOB or pain. Wilks is in place, hung below bladder, patent and draining. Call light is within reach, side rails up x2, bed is in the lowest position, brakes are locked, walking cane is within reach. Instructed on POC and to call for assist PRN. All questions and concerns answered, will continue to monitor for changes Q1hr and PRN.
[2019-12-31 22:00] VITALS: BP 143/86
[2019-12-31] MEDS: ACETAMINOPHEN 500 MG TAB PO PRN (22:04)
[2019-12-31] MEDS: ATORVASTATIN 20 MG TAB PO SCH (22:04)
--- NOTE | 2019-12-31 22:05 | NUR ---
Patient complained of pain 5/0-10 to the lower abdomen that is dull and pressure like in nature, she requested Tylenol stating it works well for her. Medicated with Tylenol as ordered, will continue to monitor.
--- NOTE | 2019-12-31 23:08 | NUR ---
Pain reassessment Patient is resting in bed. No S/S of distress or pain noted. Patient stated she didn't even notice the pain and fell asleep. Call light is within reach. Will continue to monitor.
[2020-01-01 05:00] VITALS: BP 135/70
[2020-01-01 06:32] LABS: BUN/Creatinine Ratio 16.9; Calcium 8.5 mg/dL (8.5-10.1); Potassium 3.6 mmol/L (3.5-5.1)
[2020-01-01 09:00] VITALS: BP 144/74
[2020-01-01] MEDS: cefTRIAXone 1GM/50ML D5W 50 ML IV SCH (09:04)
[2020-01-01] MEDS: DOCUSATE SOD 100 MG CAP PO SCH (10:00)
[2020-01-01] MEDS: APIXABAN 2.5 MG TAB PO SCH (10:00)
[2020-01-01] MEDS: PANTOPRAZOLE 40 MG TAB PO SCH (10:50)
[2020-01-01] MEDS: STIOLTO RESPIMAT IN SCH (10:51)
[2020-01-01] MEDS: CARVEDILOL 3.125 MG TAB PO SCH (10:58)
[2020-01-01] MEDS ORDERED: FUROSEMIDE 40 MG/4 ML VIAL IV ONE (12:30)
[2020-01-01 13:00] VITALS: BP_SYST 133; BP_SYST 154; BP_DIAS 64; BP_DIAS 83
[2020-01-01 13:48] VITALS: BP 144/74
--- NOTE | 2020-01-01 15:40 | NUR ---
DISCHARGE INSTRUCTIONS PROVIDED TO PT AND DAUGHTER. BOTH VERBALIZED UNDERSTANDING FOR PRESCRIPTION ORDERS, CONTINUATION OF HOME MEDICATIONS AND FOLLOW UP APPOINTMENT WITH PCP AND CARDIOLOGY. EDUCATIONAL MATERIAL PROVIDED, ALL QUESTIONS AND CONCERNS ADDRESSED. IV CATHETER DC'D CATHETER INTACT, NO PHLEBITIS, SORTO CATHETER DC'D, CATHETER INTACT, PT VOIDED POST CATHETER REMOVAL, PT DENIES HEMATURIA, DYSURIA, VOIDS WELL. TELE BOX REMOVED AND RETURNED TO TELE DEPT. PT SAFELY ESCORTED OUT OF UNIT VIA WHEELCHAIR, NO S/S OF DISTRESS.
== END 2020-01-01 16:00 | disposition home or self-care (01) | DRG 690 ==
LOC: ER 12:45 → TELE 12:46 → TELE-WESTW 21:10
PROVIDERS: ADMIT Nurse Practitioner Acute Care; ATTEND Internal Medicine
DX: N30.01 Acute cystitis with hematuria (principal); E44.1 Mild protein-calorie malnutrition; I48.20 Chronic atrial fibrillation, unspecified; I31.3 Pericardial effusion (noninflammatory); I50.22 Chronic systolic (congestive) heart failure; K62.5 Hemorrhage of anus and rectum; I13.0 Hypertensive heart and chronic kidney disease with heart failure and stage 1 through stage 4 chronic kidney disease, or unspecified chronic kidney disease; K64.9 Unspecified hemorrhoids; N18.3 Chronic kidney disease, stage 3 (moderate); I73.9 Peripheral vascular disease, unspecified; I25.10 Atherosclerotic heart disease of native coronary artery without angina pectoris; K64.8 Other hemorrhoids; J44.9 Chronic obstructive pulmonary disease, unspecified; K57.30 Diverticulosis of large intestine without perforation or abscess without bleeding; Z53.20 Procedure and treatment not carried out because of patient's decision for unspecified reasons; Z82.3 Family history of stroke; Z82.49 Family history of ischemic heart disease and other diseases of the circulatory system; Z79.899 Other long term (current) drug therapy; Z95.5 Presence of coronary angioplasty implant and graft; Z68.28 Body mass index [BMI] 28.0-28.9, adult; Z88.2 Allergy status to sulfonamides; Z88.7 Allergy status to serum and vaccine; Z91.041 Radiographic dye allergy status; Z86.73 Personal history of transient ischemic attack (TIA), and cerebral infarction without residual deficits; Z90.710 Acquired absence of both cervix and uterus; Z87.891 Personal history of nicotine dependence; Z79.01 Long term (current) use of anticoagulants
CPT/HCPCS: 36415; 51702; 71045; 74176; 80048; 80053; 80061; 81001; 83036; 83735; 83880; 84443; 85025; 85610; 85730; 87086; 93005; 93306; 96365; G0378; J0696

== ENCOUNTER → 2020-03-14 | Outpatient (CLI) | payer OTHER ==
[~2020-03-14] MED LIST changes: -ACET-1079 PO; +ACET-1158 PO; -ALBUAER3 IN; -APIX2.5T OR; +APIX2.5T PO; +CALC600T57 PO; -CALCTAB25 PO; +CHOL20007 PO; +CLOP75TA41 PO; +DIPH25CA66 PO; +DOCU100C8 PO; -ERGO1CAP6 PO; +FER325T PO; -ISOSTAB OR; +ISOSTAB PO; -MULT-60 OR; +MULT-688 PO; +TIOT1AER IN; +[UNRECOGNIZED DRUG - CODE] PO
[2020-03-14 09:11] LABS: Basophils # (auto) 0.1 10 ^3/uL (0-0.2); Basophils % (auto) 1.1 % (0.0-2.0); Eosinophils # (auto) 0.3 10 ^3/uL (0-0.8); Eosinophils % (auto) 4.7 % (0.0-7.0); Hematocrit 39.8 % (36.0-46.0); Lymphocytes # (auto) 0.7 10 ^3/uL (0.4-5.4); Lymphocytes % (auto) 12.1 % (10.0-50.0); Mean Corpuscular Hemoglobin 30.8 pg (28.0-32.0); Mean Corpuscular Hgb Conc. 32.7 g/dL (32.0-36.0); Monocytes # (auto) 0.7 10 ^3/uL (0-1.3); Monocytes % (auto) 11.6 % (0.0-12.0); Neutrophils % (auto) 70.5 % (37.0-80.0); Platelet Count (auto) 175 10^3/uL (140-450); Red Blood Cells 4.24 10^6/uL (4.0-5.20); Red Cell Distribution Width 18.6 % (11.8-14.3); White Blood Cell 5.7 10^3/uL (4.4-10.8)
[2020-03-14 09:12] LABS: Urine Blood TRACE /uL (Negative); Urine Specific Gravity 1.012 (1.001-1.035)
[2020-03-14 09:23] LABS: Potassium 3.6 mmol/L (3.5-5.1)
[2020-03-14 09:31] LABS: Albumin 3.4 g/dL (3.4-5.0); BUN/Creatinine Ratio 21.1; Calcium 8.9 mg/dL (8.5-10.1); Phosphorus 4.3 mg/dL (2.5-4.90); Uric Acid 4.1 mg/dL (2.6-6.0)
[2020-03-14 09:54] LABS: Creatinine, Urine 40 mg/dL (30.0-125.0); Protein, Urine 27.8 mg/dL (0.0-11.9)
== END | disposition home or self-care (01) ==
LOC: LAB 08:32
PROVIDERS: ATTEND Internal Medicine
DX: N18.3 Chronic kidney disease, stage 3 (moderate) (principal); E55.9 Vitamin D deficiency, unspecified; M10.9 Gout, unspecified; D63.1 Anemia in chronic kidney disease; N39.0 Urinary tract infection, site not specified; E21.3 Hyperparathyroidism, unspecified; R80.9 Proteinuria, unspecified
CPT/HCPCS: 36415; 80061; 80069; 81003; 82306; 82570; 83970; 84156; 84550; 85025

== ENCOUNTER → 2020-03-31 | Outpatient (CLI) | payer OTHER ==
[~2020-03-31] MED LIST changes: +SIME125C54 PO; -[UNRECOGNIZED DRUG - CODE] PO
== END | disposition home or self-care (01) ==
LOC: LAB 13:33
PROVIDERS: ATTEND Internal Medicine
DX: N39.0 Urinary tract infection, site not specified (principal)
CPT/HCPCS: 87086

== ENCOUNTER → 2020-07-25 | Outpatient (CLI) | payer OTHER, MEDICAID ==
[~2020-07-25] MED LIST changes: -SIME125C54 PO; +[UNRECOGNIZED DRUG - CODE] PO
[2020-07-25 12:02] LABS: Basophils # (auto) 0.1 10 ^3/uL (0-0.2); Basophils % (auto) 0.8 % (0.0-2.0); Eosinophils # (auto) 0.3 10 ^3/uL (0-0.8); Eosinophils % (auto) 3.8 % (0.0-7.0); Hematocrit 39.4 % (36.0-46.0); Hemoglobin 12.8 g/dL (12.2-16.2); Lymphocytes # (auto) 1.2 10 ^3/uL (0.4-5.4); Lymphocytes % (auto) 17.3 % (10.0-50.0); Mean Corpuscular Hemoglobin 31.5 pg (28.0-32.0); Mean Corpuscular Hgb Conc. 32.4 g/dL (32.0-36.0); Mean Corpuscular Volume 97.2 fL (80.0-100.0); Monocytes # (auto) 0.8 10 ^3/uL (0-1.3); Monocytes % (auto) 11.1 % (0.0-12.0); Neutrophils # (auto) 4.7 10 ^3/uL (1.6-8.6); Nucleated Red Blood Cells % 0.2 %; Platelet Count (auto) 159 10^3/uL (140-450); Red Blood Cells 4.05 10^6/uL (4.0-5.20); Red Cell Distribution Width 16.7 % (11.8-14.3); White Blood Cell 7.1 10^3/uL (4.4-10.8)
[2020-07-25 12:11] LABS: Urine Bacteria FEW /hpf (None Seen); Urine Blood TRACE /uL (Negative); Urine WBC 843 /hpf (0 - 5); Urine WBC Clumps PRESENT /hpf (None Seen)
[2020-07-25 12:13] LABS: Protein, Urine 34.8 mg/dL (0.0-11.9)
[2020-07-25 12:23] LABS: Potassium 3.9 mmol/L (3.5-5.1)
[2020-07-25 12:28] LABS: Albumin 3.5 g/dL (3.4-5.0); BUN/Creatinine Ratio 20.1; Phosphorus 3.8 mg/dL (2.5-4.90)
== END | disposition home or self-care (01) ==
LOC: LAB 11:36
PROVIDERS: ATTEND Internal Medicine
DX: N18.3 Chronic kidney disease, stage 3 (moderate) (principal); D63.1 Anemia in chronic kidney disease; E21.3 Hyperparathyroidism, unspecified; E78.5 Hyperlipidemia, unspecified; M10.9 Gout, unspecified; R80.9 Proteinuria, unspecified; E56.9 Vitamin deficiency, unspecified
CPT/HCPCS: 36415; 80069; 81001; 82306; 82570; 83970; 84156; 84550; 85025

== ENCOUNTER → 2020-08-02 | Outpatient (CLI) | payer OTHER, MEDICAID | END | disposition home or self-care (01) | LOC: LAB 11:09 | PROVIDERS: ATTEND Internal Medicine | DX: N39.0 Urinary tract infection, site not specified (principal) | CPT/HCPCS: 87086 ==

== ENCOUNTER → 2020-09-26 | Outpatient (CLI) | payer OTHER, MEDICAID ==
[~2020-09-26] VITALS: Ht 167.6 cm; Wt 77.1 kg
[~2020-09-26] MED LIST changes: +ADENOSINE 65 MG in GIVE UN-DILUTED 0 ML IV STA
[2020-09-26 09:33] VITALS: BP 116/80
== END | disposition home or self-care (01) ==
LOC: XY 07:52
PROVIDERS: ATTEND Internal Medicine
DX: I48.91 Unspecified atrial fibrillation (principal)
CPT/HCPCS: 78452; 93017; A9500; J0153

== ENCOUNTER → 2020-10-23 | Outpatient (CLI) | payer OTHER, MEDICAID, MEDICARE ==
[~2020-10-23] MED LIST changes: -ADENOSINE 65 MG in GIVE UN-DILUTED 0 ML IV STA
[2020-10-23 11:00] LABS: Basophils # (auto) 0.1 10 ^3/uL (0-0.2); Basophils % (auto) 0.9 % (0.0-2.0); Eosinophils # (auto) 0.2 10 ^3/uL (0-0.8); Eosinophils % (auto) 3.4 % (0.0-7.0); Hematocrit 37.3 % (36.0-46.0); Hemoglobin 11.9 g/dL (12.2-16.2); Lymphocytes # (auto) 0.7 10 ^3/uL (0.4-5.4); Lymphocytes % (auto) 11.8 % (10.0-50.0); Mean Corpuscular Hemoglobin 31.2 pg (28.0-32.0); Mean Corpuscular Hgb Conc. 31.9 g/dL (32.0-36.0); Mean Corpuscular Volume 97.9 fL (80.0-100.0); Monocytes # (auto) 0.5 10 ^3/uL (0-1.3); Monocytes % (auto) 8.2 % (0.0-12.0); Neutrophils # (auto) 4.4 10 ^3/uL (1.6-8.6); Neutrophils % (auto) 75.7 % (37.0-80.0); Platelet Count (auto) 164 10^3/uL (140-450); Red Blood Cells 3.81 10^6/uL (4.0-5.20); Red Cell Distribution Width 17.9 % (11.8-14.3); White Blood Cell 5.9 10^3/uL (4.4-10.8)
[2020-10-23 12:04] LABS: Potassium 4.1 mmol/L (3.5-5.1)
[2020-10-23 12:12] LABS: Albumin 3.1 g/dL (3.4-5.0); BUN/Creatinine Ratio 16.6; Calcium 8.9 mg/dL (8.5-10.1); Phosphorus 3.4 mg/dL (2.5-4.90)
[2020-10-24 13:40] LABS: Urine Blood 1+ /uL (Negative); Urine Specific Gravity 1.012 (1.001-1.035)
[2020-10-24 14:20] LABS: Creatinine, Urine 43 mg/dL (30.0-125.0); Protein, Urine 55.7 mg/dL (0.0-11.9)
== END | disposition home or self-care (01) ==
LOC: LAB 10:33
PROVIDERS: ATTEND Internal Medicine
DX: N18.30 Chronic kidney disease, stage 3 unspecified (principal); D63.1 Anemia in chronic kidney disease; E21.3 Hyperparathyroidism, unspecified; E56.9 Vitamin deficiency, unspecified; R80.9 Proteinuria, unspecified; R82.90 Unspecified abnormal findings in urine; N39.0 Urinary tract infection, site not specified; M10.9 Gout, unspecified
CPT/HCPCS: 36415; 80069; 81003; 82306; 82570; 83970; 84156; 84550; 85025

== ENCOUNTER 2021-01-01 14:24 | Inpatient (IN) | payer OTHER, MEDICAID ==
[~2021-01-01] VITALS: Ht 167.6 cm; Wt 76.6 kg
[~2021-01-01 14:24] MED LIST changes: +CALC1TAB92 PO; -CALC600T57 PO; -CLOP75TA41 PO; +CLOP75TA70 PO; +DOCU100C10 PO; -DOCU100C8 PO
[2021-01-01] MEDS ORDERED: NITROGLYCERIN 0.4 MG SL TAB SL PRN (17:30)
[2021-01-01] MEDS ORDERED: HYDROcodone-ACET 5/325MG TAB PO PRN (17:30)
[2021-01-01] MEDS ORDERED: ALUM & MAG HYDROX-SIMETH LIQ(MAALOX) 30 ML PO PRN (17:30)
[2021-01-01] MEDS ORDERED: ACETAMINOPHEN 325 MG TAB PO PRN (17:30)
[2021-01-01] MEDS ORDERED: MORPHINE SULF INJ 2 MG/ML SYRINGE 1ML IV PRN ×2 (17:30)
[2021-01-01] MEDS ORDERED: TEMAZEPAM 15 MG CAP PO PRN (17:30)
[2021-01-01] MEDS ORDERED: METOCLOPRAMIDE HCL 5MG/ml INJ 2ml VIAL IV PRN (17:30)
[2021-01-01] MEDS ORDERED: DOCUSATE SOD 100 MG CAP PO PRN (17:30)
[2021-01-01] MEDS ORDERED: cefTRIAXone 1GM/50ML D5W 50 ML IV ONE (17:45)
[2021-01-01 17:49] VITALS: BP 114/66
[2021-01-01] MEDS ORDERED: GOLYTELY 4L KIT PO ONE (18:00)
[2021-01-01 18:47] VITALS: BP 138/75
[2021-01-01 19:34] LABS: Basophils # (auto) 0 10 ^3/uL (0-0.2); Basophils % (auto) 0.1 % (0.0-2.0); Eosinophils # (auto) 0 10 ^3/uL (0-0.8); Mean Corpuscular Hemoglobin 31.3 pg (28.0-32.0); Mean Corpuscular Hgb Conc. 32.3 g/dL (32.0-36.0)
[2021-01-01 19:37] LABS: Lymphocytes # (auto) 0.4 10 ^3/uL (0.4-5.4); Lymphocytes % (auto) 1.2 % (10.0-50.0); Mean Corpuscular Volume 96.8 fL (80.0-100.0); Monocytes # (auto) 1.8 10 ^3/uL (0-1.3); Neutrophils # (auto) 33.8 10 ^3/uL (1.6-8.6); Neutrophils % (auto) 93.7 % (37.0-80.0); Platelet Count (auto) 254 10^3/uL (140-450); Red Blood Cells 3.82 10^6/uL (4.0-5.20); Red Cell Distribution Width 17.2 % (11.8-14.3)
[2021-01-01 19:51] LABS: Calcium 8.5 mg/dL (8.5-10.1); Magnesium 2.1 mg/dL (1.6-2.6); White Blood Cell 36.1 10^3/uL (4.4-10.8)
[2021-01-01 19:54] LABS: INR 1.46 (0.9-1.15)
[2021-01-01 19:55] LABS: BUN/Creatinine Ratio 26.2; Bilirubin, Total 0.7 mg/dL (0.2-1.0); Phosphorus 2.2 mg/dL (2.5-4.90); Total Protein 6.6 g/dL (6.4-8.2)
[2021-01-01 20:03] LABS: Potassium 5.6 mmol/L (3.5-5.1)
[2021-01-01] MEDS ORDERED: SODIUM PHOSPHATES 20 MEQ in SODIUM CHL 0.9% 100 ML IV ONE (21:00)
[2021-01-01] MEDS ORDERED: SODIUM ZIRCONIUM CYCL 10 GM PAK PO ONE (21:00)
[2021-01-01] MEDS: SODIUM CHLORIDE 0.9% 1,000 ML IV SCH (21:59)
[2021-01-01] MEDS ORDERED: metroNIDAZOLE 500MG/100ML 100 ML IV SCH (22:00)
[2021-01-01 22:02] VITALS: BP 100/61
[2021-01-01] MEDS: ENOXAPARIN SOD 80 MG/0.8ML SYRINGE SC SCH (22:22)
[2021-01-02] VITALS (12 sets, daily range): BP systolic 83–112; BP diastolic 39–67
[2021-01-02] MEDS: PANTOPRAZOLE 40 MG/10 ML VIAL INJ IV SCH ×3 (00:23→21:24)
[2021-01-02] MEDS ORDERED: AMIODARONE 450mg/250ml AE 250 ML IV SCH ×2 (00:45→03:00)
[2021-01-02] MEDS: LINEZOLID 600MG/300ML 300 ML IV SCH ×3 (01:17→21:24)
[2021-01-02] MEDS ORDERED: AMIODARONE HCL (50 MG/ ML) 3 ML VIAL IV ONE (02:55)
[2021-01-02] MEDS ORDERED: AMIODARONE HCL 150 MG in D5W 5% 100 ML IV ONE (03:00)
[2021-01-02] MEDS: MEROPENEM 500MG IVPB 50 ML IV SCH ×2 (03:33→16:48)
[2021-01-02 06:36] LABS: Albumin 1.8 g/dL (3.4-5.0); Calcium 8.4 mg/dL (8.5-10.1); Potassium 4.9 mmol/L (3.5-5.1)
[2021-01-02 06:39] LABS: BUN/Creatinine Ratio 22.4; Bilirubin, Total 0.8 mg/dL (0.2-1.0); Total Protein 6.4 g/dL (6.4-8.2)
[2021-01-02 06:48] LABS: Mean Corpuscular Hemoglobin 31.5 pg (28.0-32.0); Mean Corpuscular Hgb Conc. 32.8 g/dL (32.0-36.0); Mean Corpuscular Volume 96.2 fL (80.0-100.0)
[2021-01-02 06:50] LABS: Hematocrit 35.9 % (36.0-46.0); Hemoglobin 11.8 g/dL (12.2-16.2); Platelet Count (auto) 272 10^3/uL (140-450); Red Blood Cells 3.73 10^6/uL (4.0-5.20); Red Cell Distribution Width 17.1 % (11.8-14.3)
[2021-01-02 08:01] LABS: White Blood Cell 37.7 10^3/uL (4.4-10.8)
[2021-01-02 08:02] LABS: Basophils % (manual) 0 (0.0-2.0); Blast Cells 0; Eosinophils % (manual) 0 (0-7); Promyelocytes % 0; Reactive Lymphocytes 0
[2021-01-02 08:03] LABS: Band Neutrophils % (manual) 5; Lymphocytes % (manual) 2 (10.0-50.0); Metamyelocytes % 1; Monocytes % (manual) 5 (0-12); Myelocytes % 1
[2021-01-02] MEDS ORDERED: ALBUMIN 25% 100 ML IV ONE (08:45)
[2021-01-02] MEDS ORDERED: cefTRIAXone 1GM/50ML D5W 50 ML IV SCH (09:00)
[2021-01-02] MEDS ORDERED: GASTROGRAFIN 120 ML SOL ONE (09:29)
[2021-01-02 09:43] LABS: Urine Amorphous Crystal MOD /hpf (None Seen); Urine Bacteria MOD /hpf (None Seen); Urine Blood 1+ /uL (Negative); Urine Hyaline Cast FEW /lpf (0 - 2); Urine Mucus FEW (None Seen); Urine Specific Gravity 1.022 (1.001-1.035); Urine WBC 19 /hpf (0 - 5)
[2021-01-02] MEDS: AMIODARONE 450mg/250ml AE 250 ML IV SCH (09:47)
[2021-01-02] MEDS: ENOXAPARIN SOD 80 MG/0.8ML SYRINGE SC SCH (12:01)
[2021-01-02] MEDS ORDERED: DIGOXIN (250MCG/ML) 2 ML AMPULE IV ONE (13:30)
[2021-01-02] MEDS: SODIUM CHLORIDE 0.9% 1,000 ML IV SCH (15:50)
[2021-01-02] MEDS ORDERED: METOPROLOL TARTRATE 1MG/1ML-5ML VIAL IV PRN ×2 (18:15)
[2021-01-03] VITALS (31 sets, daily range): BP systolic 83–148; BP diastolic 32–69
[2021-01-03] MEDS: MEROPENEM 500MG IVPB 50 ML IV SCH ×2 (00:34→13:24)
[2021-01-03] MEDS: AMIODARONE 450mg/250ml AE 250 ML IV SCH ×2 (00:34→15:00)
[2021-01-03] MEDS: SODIUM CHLORIDE 0.9% 1,000 ML IV SCH ×2 (02:50→19:30)
[2021-01-03] MEDS: BENZOCAINE (DENTAL)20% 1 SPR SPRAY MT SCH ×4 (06:00→22:00)
[2021-01-03] MEDS ORDERED: DIGOXIN 0.125 MG TAB PO SCH (10:00)
[2021-01-03 10:27] LABS: Hematocrit 35.3 % (36.0-46.0); Hemoglobin 11.5 g/dL (12.2-16.2); Mean Corpuscular Hemoglobin 31.4 pg (28.0-32.0); Mean Corpuscular Hgb Conc. 32.5 g/dL (32.0-36.0); Mean Corpuscular Volume 96.5 fL (80.0-100.0); Platelet Count (auto) 240 10^3/uL (140-450); Red Blood Cells 3.65 10^6/uL (4.0-5.20); Red Cell Distribution Width 17.1 % (11.8-14.3); White Blood Cell 28.2 10^3/uL (4.4-10.8)
[2021-01-03 10:30] LABS: Calcium 8.6 mg/dL (8.5-10.1); Potassium 4.7 mmol/L (3.5-5.1)
[2021-01-03 10:33] LABS: BUN/Creatinine Ratio 27.5; Bilirubin, Total 0.8 mg/dL (0.2-1.0); Total Protein 6.3 g/dL (6.4-8.2)
[2021-01-03 10:38] LABS: Lactic Acid w/Reflex 2.4 mmol/L (0.4-2.0)
[2021-01-03 10:48] LABS: Basophils % (manual) 0 (0.0-2.0); Blast Cells 0; Eosinophils % (manual) 0 (0-7); Metamyelocytes % 0; Myelocytes % 0; Promyelocytes % 0; Reactive Lymphocytes 0
[2021-01-03] MEDS: ENOXAPARIN SOD 80 MG/0.8ML SYRINGE SC SCH (11:17)
[2021-01-03] MEDS: PANTOPRAZOLE 40 MG/10 ML VIAL INJ IV SCH ×2 (11:18→22:11)
[2021-01-03] MEDS: LINEZOLID 600MG/300ML 300 ML IV SCH ×2 (11:18→22:12)
[2021-01-03 11:26] LABS: Band Neutrophils % (manual) 19; Lymphocytes % (manual) 2 (10.0-50.0); Monocytes % (manual) 3 (0-12)
[2021-01-03] MEDS ORDERED: DIGOXIN (250MCG/ML) 2 ML AMPULE IV ONE (12:45)
[2021-01-03] MEDS ORDERED: SUCCINYLCHOLINE CHLORIDE 20 MG/ML 10ML VIAL IV ONE (14:39)
[2021-01-03] MEDS ORDERED: MIDAZOLAM HCL 1MG/1ML-2 ML VIAL ONE (14:51)
[2021-01-03] MEDS ORDERED: fentaNYL CITRATE 100 MCG/2 ML VL ONE (14:51)
[2021-01-03] MEDS ORDERED: HYDROmorphone HCL 2 MG/ML VL ONE ×2 (14:51→16:38)
[2021-01-03] MEDS ORDERED: ROCURONIUM 10MG/ML 10ML VIAL IV ONE (14:56)
[2021-01-03] MEDS ORDERED: PHENYLEPHRINE HCL 10 MG/ML VL IV ONE (15:01)
[2021-01-03] MEDS ORDERED: ceFAZolin 1GM/50ML 50 ML IV ONE (15:09)
[2021-01-03] MEDS ORDERED: CALCIUM CHLOR(10%) 100MG/ML 10ML SYRINGE IV ONE (15:23)
[2021-01-03] MEDS: PROPOFOL 100 ML IV SCH (19:00)
[2021-01-03] MEDS: fentaNYL Drip 2500mCg/250mlNS 250 ML IV SCH (19:00)
[2021-01-03 19:11] LABS: Hematocrit 33.8 % (36.0-46.0); Mean Corpuscular Hemoglobin 31.5 pg (28.0-32.0); Mean Corpuscular Hgb Conc. 32.6 g/dL (32.0-36.0); Mean Corpuscular Volume 96.7 fL (80.0-100.0); Platelet Count (auto) 232 10^3/uL (140-450); Red Blood Cells 3.49 10^6/uL (4.0-5.20); Red Cell Distribution Width 17.2 % (11.8-14.3); White Blood Cell 26.2 10^3/uL (4.4-10.8)
[2021-01-03 19:15] LABS: Basophils % (manual) 0 (0.0-2.0); Blast Cells 0; Eosinophils % (manual) 0 (0-7); Myelocytes % 0; Promyelocytes % 0; Reactive Lymphocytes 0
[2021-01-03] MEDS ORDERED: NOREPINEPHRINE 8 MG/250ML KIT 250 ML IV ONE (19:18)
[2021-01-03 19:36] LABS: Albumin 1.5 g/dL (3.4-5.0); Calcium 8.4 mg/dL (8.5-10.1); Magnesium 2.2 mg/dL (1.6-2.6)
[2021-01-03 19:39] LABS: BUN/Creatinine Ratio 28.2
[2021-01-03 19:40] LABS: Bilirubin, Total 0.6 mg/dL (0.2-1.0); Total Protein 5.1 g/dL (6.4-8.2)
[2021-01-03 19:43] LABS: Potassium 5.6 mmol/L (3.5-5.1)
[2021-01-03] MEDS: NOREPINEPHRINE 8 MG/250ML KIT 250 ML IV SCH (20:13)
[2021-01-03 20:54] LABS: Band Neutrophils % (manual) 6; Lymphocytes % (manual) 1 (10.0-50.0); Metamyelocytes % 2; Monocytes % (manual) 5 (0-12)
[2021-01-03] MEDS ORDERED: SODIUM CHLORIDE 0.9% 1,000 ML IV SCH (21:15)
[2021-01-03] MEDS ORDERED: SODIUM ZIRCONIUM CYCL 10 GM PAK PO ONE (21:15)
[2021-01-03] MEDS: metroNIDAZOLE 500MG/100ML 100 ML IV SCH (22:11)
[2021-01-04] VITALS (106 sets, daily range): BP systolic 82–202; BP diastolic 28–64
[2021-01-04] MEDS: NOREPINEPHRINE 8 MG/250ML KIT 250 ML IV SCH
[2021-01-04 04:29] LABS: Hematocrit 35.1 % (36.0-46.0); Hemoglobin 11.1 g/dL (12.2-16.2); Mean Corpuscular Hemoglobin 31.1 pg (28.0-32.0); Mean Corpuscular Hgb Conc. 31.8 g/dL (32.0-36.0); Mean Corpuscular Volume 97.9 fL (80.0-100.0); Platelet Count (auto) 220 10^3/uL (140-450); Red Blood Cells 3.58 10^6/uL (4.0-5.20); Red Cell Distribution Width 17.3 % (11.8-14.3); White Blood Cell 19.3 10^3/uL (4.4-10.8)
[2021-01-04 04:50] LABS: Basophils % (manual) 0 (0.0-2.0); Blast Cells 0; Eosinophils % (manual) 0 (0-7); Myelocytes % 0; Promyelocytes % 0; Reactive Lymphocytes 0
[2021-01-04 05:44] LABS: Band Neutrophils % (manual) 41; Lymphocytes % (manual) 1 (10.0-50.0); Metamyelocytes % 2; Monocytes % (manual) 1 (0-12)
[2021-01-04 05:52] LABS: INR 1.36 (0.9-1.15); Partial Thromboplastin Time 53.4 sec (23.0-31.2)
[2021-01-04] MEDS: AMIODARONE 450mg/250ml AE 250 ML IV SCH ×2 (06:00→21:00)
[2021-01-04] MEDS: BENZOCAINE (DENTAL)20% 1 SPR SPRAY MT SCH ×4 (06:00→21:45)
[2021-01-04] MEDS: metroNIDAZOLE 500MG/100ML 100 ML IV SCH (06:10)
[2021-01-04 09:44] LABS: Sodium 136 mmol/L (136-145)
[2021-01-04 09:45] LABS: Alanine Aminotransferase 18 U/L (13-56); Albumin 1.4 g/dL (3.4-5.0); Alkaline Phosphatase 122 U/L (45-117); Anion Gap 10 (5-15); Aspartate Aminotransferase 51 U/L (15-37); BUN/Creatinine Ratio 26.8; Bilirubin, Total 0.7 mg/dL (0.2-1.0); Blood Urea Nitrogen 75 mg/dL (7-18); Calcium 8.1 mg/dL (8.5-10.1); Carbon Dioxide 19 mmol/L (21-32); Chloride 107 mmol/L (98-107); GFR African American 21 mL/min; GFR Non-African American 17 mL/min; Glucose 120 mg/dL (74-106); Phosphorus 6.1 mg/dL (2.5-4.90); Total Protein 5.2 g/dL (6.4-8.2)
[2021-01-04 09:46] LABS: Magnesium 2.3 mg/dL (1.6-2.6)
[2021-01-04 09:47] LABS: Potassium 5.7 mmol/L (3.5-5.1)
[2021-01-04] MEDS: PANTOPRAZOLE 40 MG/10 ML VIAL INJ IV SCH ×2 (09:48→21:44)
[2021-01-04] MEDS: ENOXAPARIN SOD 80 MG/0.8ML SYRINGE SC SCH (09:48)
[2021-01-04] MEDS: LINEZOLID 600MG/300ML 300 ML IV SCH ×2 (09:48→21:44)
[2021-01-04] MEDS ORDERED: SODIUM BICARBONATE 50ML VIAL 150 ML in D5W 5% 1,000 ML IV ONE ×2 (10:00→10:15)
[2021-01-04] MEDS ORDERED: FUROSEMIDE 40 MG/4 ML VIAL IV ONE ×2 (10:00→21:30)
[2021-01-04] MEDS ORDERED: SODIUM BICARBONATE 8.4% INJ 50ML SYRINGE IV ONE (10:00)
[2021-01-04] MEDS ORDERED: ALBUTEROL SULF 2.5 MG/0.5ML(0.5%) NEB SOLN NEB ONE (10:00)
[2021-01-04] MEDS ORDERED: FUROSEMIDE 20 MG/2 ML VIAL IV ONE (10:00)
[2021-01-04] MEDS ORDERED: FUROSEMIDE 100 MG/10ML VIAL IV ONE (10:15)
[2021-01-04] MEDS: MEROPENEM 500MG IVPB 50 ML IV SCH ×2 (11:53)
[2021-01-04] MEDS ORDERED: AMINO ACID INFUSION IN D10W 1,000 ML IV SCH (12:15)
[2021-01-04] MEDS ORDERED: DEXTROSE (50%) 50ML SYRG IV PRN (12:30)
[2021-01-04] MEDS ORDERED: TPN PER PHARMACY 0 ML IV SCH (13:00)
[2021-01-04] MEDS: fentaNYL Drip 2500mCg/250mlNS 250 ML IV SCH (18:15)
[2021-01-04] MEDS: PROPOFOL 100 ML IV SCH (18:15)
[2021-01-04] MEDS: AMINO ACID INFUSION IN D10W 1,000 ML IV SCH (20:00)
[2021-01-04] MEDS: SODIUM CHLOR 0.9% PF (SALINE LOCK) 10ML VIAL/SYR IV SCH (21:44)
[2021-01-05] VITALS (104 sets, daily range): BP systolic 90–168; BP diastolic 27–69
[2021-01-05] MEDS: PROPOFOL 100 ML IV SCH (03:00)
[2021-01-05] MEDS: fentaNYL Drip 2500mCg/250mlNS 250 ML IV SCH (03:00)
[2021-01-05 04:31] LABS: Hematocrit 34.5 % (36.0-46.0); Mean Corpuscular Hemoglobin 31.5 pg (28.0-32.0); Mean Corpuscular Volume 98.4 fL (80.0-100.0); Platelet Count (auto) 199 10^3/uL (140-450); Red Blood Cells 3.51 10^6/uL (4.0-5.20); White Blood Cell 14.9 10^3/uL (4.4-10.8)
[2021-01-05 04:51] LABS: Calcium 7.8 mg/dL (8.5-10.1); Magnesium 2.2 mg/dL (1.6-2.6); Potassium 4.9 mmol/L (3.5-5.1)
[2021-01-05 04:58] LABS: Albumin 1.4 g/dL (3.4-5.0); BUN/Creatinine Ratio 28.6; Bilirubin, Total 0.5 mg/dL (0.2-1.0); Phosphorus 6.1 mg/dL (2.5-4.90); Pre Albumin 8.2 mg/dL (20.0-40.0); Total Protein 5.3 g/dL (6.4-8.2)
[2021-01-05 05:05] LABS: Basophils % (manual) 0 (0.0-2.0); Blast Cells 0; Eosinophils % (manual) 0 (0-7); Metamyelocytes % 0; Myelocytes % 0; Promyelocytes % 0; Reactive Lymphocytes 0
[2021-01-05] MEDS: InsuLIN REG 1unit/0.01ml Soln (100units/ml) SC SCH ×4 (05:42→17:28)
[2021-01-05] MEDS: ACCU-CHEK COMFORT CURVE STRIP VI SCH ×4 (05:49→17:28)
[2021-01-05] MEDS: BENZOCAINE (DENTAL)20% 1 SPR SPRAY MT SCH ×4 (05:50→21:42)
[2021-01-05 06:46] LABS: Band Neutrophils % (manual) 40; Lymphocytes % (manual) 2 (10.0-50.0); Monocytes % (manual) 5 (0-12)
[2021-01-05] MEDS ORDERED: BUMETANIDE 2.5mg/10ml (0.25 mg/ml) INJ IV ONE (08:00)
[2021-01-05] MEDS: ALBUMIN 25% 100 ML IV SCH ×2 (09:45→15:26)
[2021-01-05] MEDS: PANTOPRAZOLE 40 MG/10 ML VIAL INJ IV SCH ×2 (09:46→20:53)
[2021-01-05] MEDS: SODIUM CHLOR 0.9% PF (SALINE LOCK) 10ML VIAL/SYR IV SCH ×2 (09:46→20:53)
[2021-01-05] MEDS: LINEZOLID 600MG/300ML 300 ML IV SCH ×2 (09:47→20:53)
[2021-01-05] MEDS: ENOXAPARIN SOD 80 MG/0.8ML SYRINGE SC SCH (09:47)
[2021-01-05] MEDS: MEROPENEM 500MG IVPB 50 ML IV SCH ×2 (11:25)
[2021-01-05] MEDS ORDERED: SODIUM BICARBONATE 50ML VIAL 150 ML in D5W 5% 1,000 ML IV SCH (12:15)
[2021-01-05] MEDS: NOREPINEPHRINE 8 MG/250ML KIT 250 ML IV SCH (19:45)
[2021-01-05] MEDS: AMINO ACID INFUSION IN D10W 1,000 ML IV SCH (19:49)
[2021-01-05] MEDS ORDERED: TPN PER PHARMACY IV NR ×8 (20:00)
[2021-01-05] MEDS: AMIODARONE 450mg/250ml AE 250 ML IV SCH (20:07)
[2021-01-06] VITALS (101 sets, daily range): BP systolic 119–183; BP diastolic 30–100
[2021-01-06] MEDS: ALBUMIN 25% 100 ML IV SCH
[2021-01-06] MEDS: AMIODARONE 450mg/250ml AE 250 ML IV SCH ×2 (00:17→18:00)
[2021-01-06 04:08] LABS: Hematocrit 21.7 % (36.0-46.0); Hemoglobin 7.5 g/dL (12.2-16.2); Mean Corpuscular Hgb Conc. 34.3 g/dL (32.0-36.0); Mean Corpuscular Volume 96.3 fL (80.0-100.0); Platelet Count (auto) 160 10^3/uL (140-450); Red Blood Cells 2.26 10^6/uL (4.0-5.20); Red Cell Distribution Width 16.9 % (11.8-14.3); White Blood Cell 8.7 10^3/uL (4.4-10.8)
[2021-01-06 04:19] LABS: Band Neutrophils % (manual) 0; Basophils % (manual) 0 (0.0-2.0); Blast Cells 0; Eosinophils % (manual) 0 (0-7); Metamyelocytes % 0; Myelocytes % 0; Promyelocytes % 0; Reactive Lymphocytes 0
[2021-01-06 04:20] LABS: Albumin 1.9 g/dL (3.4-5.0); Calcium 6.1 mg/dL (8.5-10.1); Magnesium 1.8 mg/dL (1.6-2.6); Potassium 4.1 mmol/L (3.5-5.1)
[2021-01-06 04:25] LABS: BUN/Creatinine Ratio 37.6; Bilirubin, Total 0.6 mg/dL (0.2-1.0); Phosphorus 3.8 mg/dL (2.5-4.90); Total Protein 4.1 g/dL (6.4-8.2)
[2021-01-06] MEDS: ACCU-CHEK COMFORT CURVE STRIP VI SCH ×5 (05:38→23:36)
[2021-01-06] MEDS: BENZOCAINE (DENTAL)20% 1 SPR SPRAY MT SCH ×4 (05:38→22:01)
[2021-01-06] MEDS: fentaNYL Drip 2500mCg/250mlNS 250 ML IV SCH (05:38)
[2021-01-06] MEDS: InsuLIN REG 1unit/0.01ml Soln (100units/ml) SC SCH ×5 (05:38→23:37)
[2021-01-06 06:12] LABS: Lymphocytes % (manual) 4 (10.0-50.0); Monocytes % (manual) 3 (0-12)
[2021-01-06 07:26] LABS: Hematocrit 27.2 % (36.0-46.0); Hemoglobin 9.1 g/dL (12.2-16.2)
[2021-01-06 08:18] LABS: Basophils # (auto) 0 10 ^3/uL (0-0.2); Basophils % (auto) 0.1 % (0.0-2.0); Eosinophils # (auto) 0 10 ^3/uL (0-0.8); Hematocrit 28.2 % (36.0-46.0); Hemoglobin 9.1 g/dL (12.2-16.2); Lymphocytes # (auto) 0.4 10 ^3/uL (0.4-5.4); Lymphocytes % (auto) 3.8 % (10.0-50.0); Mean Corpuscular Hemoglobin 31.2 pg (28.0-32.0); Mean Corpuscular Hgb Conc. 32.4 g/dL (32.0-36.0); Mean Corpuscular Volume 96.2 fL (80.0-100.0); Monocytes # (auto) 0.7 10 ^3/uL (0-1.3); Monocytes % (auto) 7.3 % (0.0-12.0); Neutrophils # (auto) 8.7 10 ^3/uL (1.6-8.6); Neutrophils % (auto) 88.8 % (37.0-80.0); Platelet Count (auto) 159 10^3/uL (140-450); Red Blood Cells 2.93 10^6/uL (4.0-5.20); Red Cell Distribution Width 17.1 % (11.8-14.3); White Blood Cell 9.8 10^3/uL (4.4-10.8)
[2021-01-06 08:31] LABS: Albumin 2.3 g/dL (3.4-5.0); Calcium 7.9 mg/dL (8.5-10.1)
[2021-01-06 08:34] LABS: BUN/Creatinine Ratio 34.4; Bilirubin, Total 0.7 mg/dL (0.2-1.0); Total Protein 5.3 g/dL (6.4-8.2)
[2021-01-06 08:44] LABS: Potassium 4.9 mmol/L (3.5-5.1)
[2021-01-06] MEDS: PANTOPRAZOLE 40 MG/10 ML VIAL INJ IV SCH ×2 (09:05→22:00)
[2021-01-06] MEDS: SODIUM CHLOR 0.9% PF (SALINE LOCK) 10ML VIAL/SYR IV SCH ×2 (09:06→22:00)
[2021-01-06] MEDS: LINEZOLID 600MG/300ML 300 ML IV SCH ×2 (09:06→22:00)
[2021-01-06] MEDS: ENOXAPARIN SOD 80 MG/0.8ML SYRINGE SC SCH (10:08)
[2021-01-06] MEDS ORDERED: SODIUM CHLORIDE 0.9% 1,000 ML IV SCH (10:15)
[2021-01-06] MEDS: MEROPENEM 500MG IVPB 50 ML IV SCH ×2 (11:20)
[2021-01-06] MEDS: PROPOFOL 100 ML IV SCH (18:15)
[2021-01-06] MEDS: NOREPINEPHRINE 8 MG/250ML KIT 250 ML IV SCH (19:45)
[2021-01-06] MEDS ORDERED: TPN PER PHARMACY IV NR ×8 (20:00)
[2021-01-07] VITALS (33 sets, daily range): BP systolic 97–196; BP diastolic 41–89
[2021-01-07] MEDS: MEROPENEM 500MG IVPB 50 ML IV SCH ×2 (00:28→11:49)
[2021-01-07 04:25] LABS: Basophils # (auto) 0 10 ^3/uL (0-0.2); Eosinophils # (auto) 0 10 ^3/uL (0-0.8); Hemoglobin 9.6 g/dL (12.2-16.2); Mean Corpuscular Hgb Conc. 29.1 g/dL (32.0-36.0)
[2021-01-07 04:27] LABS: Eosinophils % (auto) 0.2 % (0.0-7.0); Lymphocytes # (auto) 0.5 10 ^3/uL (0.4-5.4); Mean Corpuscular Hemoglobin 32.6 pg (28.0-32.0); Mean Corpuscular Volume 111.9 fL (80.0-100.0); Monocytes # (auto) 0.7 10 ^3/uL (0-1.3); Monocytes % (auto) 8.1 % (0.0-12.0); Neutrophils # (auto) 7.8 10 ^3/uL (1.6-8.6); Neutrophils % (auto) 86.7 % (37.0-80.0); Platelet Count (auto) 132 10^3/uL (140-450); Red Blood Cells 2.95 10^6/uL (4.0-5.20)
[2021-01-07] MEDS: InsuLIN REG 1unit/0.01ml Soln (100units/ml) SC SCH ×3 (06:00→17:31)
[2021-01-07] MEDS: BENZOCAINE (DENTAL)20% 1 SPR SPRAY MT SCH ×4 (06:26→20:05)
[2021-01-07] MEDS: ACCU-CHEK COMFORT CURVE STRIP VI SCH ×3 (06:26→17:31)
[2021-01-07 07:12] LABS: Potassium 4.2 mmol/L (3.5-5.1)
[2021-01-07 07:20] LABS: Albumin 2.3 g/dL (3.4-5.0); BUN/Creatinine Ratio 40.2; Magnesium 2.3 mg/dL (1.6-2.6); Phosphorus 3.7 mg/dL (2.5-4.90); Total Protein 5.5 g/dL (6.4-8.2)
[2021-01-07] MEDS: AMIODARONE 450mg/250ml AE 250 ML IV SCH (07:23)
[2021-01-07] MEDS: fentaNYL Drip 2500mCg/250mlNS 250 ML IV SCH (07:24)
[2021-01-07] MEDS: PROPOFOL 100 ML IV SCH (07:24)
[2021-01-07] MEDS: NOREPINEPHRINE 8 MG/250ML KIT 250 ML IV SCH (07:24)
[2021-01-07] MEDS: SODIUM CHLOR 0.9% PF (SALINE LOCK) 10ML VIAL/SYR IV SCH ×2 (10:23→20:04)
[2021-01-07] MEDS: ENOXAPARIN SOD 80 MG/0.8ML SYRINGE SC SCH (10:23)
[2021-01-07] MEDS: PANTOPRAZOLE 40 MG/10 ML VIAL INJ IV SCH ×2 (10:23→20:03)
[2021-01-07] MEDS: LINEZOLID 600MG/300ML 300 ML IV SCH ×2 (10:23→20:04)
[2021-01-07] MEDS ORDERED: hydrALAZINE HCL 20 MG/ML VL IV PRN (19:00)
[2021-01-07] MEDS ORDERED: TPN PER PHARMACY IV NR ×9 (20:00)
[2021-01-08] VITALS (18 sets, daily range): BP systolic 119–170; BP diastolic 45–86
[2021-01-08] MEDS: ACCU-CHEK COMFORT CURVE STRIP VI SCH ×4 (00:15→17:04)
[2021-01-08] MEDS: MEROPENEM 500MG IVPB 50 ML IV SCH ×2 (00:15→15:05)
[2021-01-08 04:26] LABS: Basophils # (auto) 0 10 ^3/uL (0-0.2); Basophils % (auto) 0.1 % (0.0-2.0); Eosinophils # (auto) 0.1 10 ^3/uL (0-0.8); Eosinophils % (auto) 0.9 % (0.0-7.0); Hematocrit 33.1 % (36.0-46.0); Hemoglobin 10.8 g/dL (12.2-16.2); Lymphocytes # (auto) 0.6 10 ^3/uL (0.4-5.4); Lymphocytes % (auto) 6.9 % (10.0-50.0); Mean Corpuscular Hemoglobin 31.7 pg (28.0-32.0); Mean Corpuscular Hgb Conc. 32.7 g/dL (32.0-36.0); Mean Corpuscular Volume 96.9 fL (80.0-100.0); Monocytes # (auto) 0.6 10 ^3/uL (0-1.3); Monocytes % (auto) 6.4 % (0.0-12.0); Neutrophils # (auto) 7.4 10 ^3/uL (1.6-8.6); Neutrophils % (auto) 85.7 % (37.0-80.0); Platelet Count (auto) 112 10^3/uL (140-450); Red Blood Cells 3.42 10^6/uL (4.0-5.20); Red Cell Distribution Width 16.8 % (11.8-14.3); White Blood Cell 8.6 10^3/uL (4.4-10.8)
[2021-01-08 04:40] LABS: Albumin 2.1 g/dL (3.4-5.0); Calcium 7.9 mg/dL (8.5-10.1); Magnesium 2.2 mg/dL (1.6-2.6); Potassium 4.3 mmol/L (3.5-5.1)
[2021-01-08 04:45] LABS: BUN/Creatinine Ratio 42.4; Total Protein 5.3 g/dL (6.4-8.2)
[2021-01-08] MEDS: BENZOCAINE (DENTAL)20% 1 SPR SPRAY MT SCH ×4 (05:29→21:40)
[2021-01-08] MEDS: InsuLIN REG 1unit/0.01ml Soln (100units/ml) SC SCH ×4 (05:30→18:42)
[2021-01-08] MEDS: SODIUM CHLOR 0.9% PF (SALINE LOCK) 10ML VIAL/SYR IV SCH ×2 (07:28→21:22)
[2021-01-08] MEDS: PANTOPRAZOLE 40 MG/10 ML VIAL INJ IV SCH ×2 (11:19→21:26)
[2021-01-08] MEDS: ENOXAPARIN SOD 80 MG/0.8ML SYRINGE SC SCH (12:31)
[2021-01-08] MEDS: LINEZOLID 600MG/300ML 300 ML IV SCH ×2 (12:31→21:25)
[2021-01-08] MEDS ORDERED: FUROSEMIDE 20 MG/2 ML VIAL IV ONE (14:00)
[2021-01-08] MEDS: TPN PER PHARMACY IV NR ×11 (19:26)
[2021-01-09] VITALS (7 sets, daily range): BP systolic 105–170; BP diastolic 59–80
[2021-01-09] MEDS: MEROPENEM 500MG IVPB 50 ML IV SCH
[2021-01-09] MEDS: ACCU-CHEK COMFORT CURVE STRIP VI SCH ×4 (05:19→17:29)
[2021-01-09] MEDS: BENZOCAINE (DENTAL)20% 1 SPR SPRAY MT SCH ×4 (05:19→21:42)
[2021-01-09] MEDS: InsuLIN REG 1unit/0.01ml Soln (100units/ml) SC SCH ×4 (05:19→17:28)
[2021-01-09 07:23] LABS: Basophils # (auto) 0 10 ^3/uL (0-0.2); Basophils % (auto) 0.1 % (0.0-2.0); Eosinophils # (auto) 0.2 10 ^3/uL (0-0.8); Eosinophils % (auto) 2.3 % (0.0-7.0); Hematocrit 31.5 % (36.0-46.0); Hemoglobin 10.2 g/dL (12.2-16.2); Lymphocytes # (auto) 0.6 10 ^3/uL (0.4-5.4); Lymphocytes % (auto) 7.2 % (10.0-50.0); Mean Corpuscular Hemoglobin 31.5 pg (28.0-32.0); Mean Corpuscular Hgb Conc. 32.3 g/dL (32.0-36.0); Mean Corpuscular Volume 97.5 fL (80.0-100.0); Monocytes # (auto) 0.5 10 ^3/uL (0-1.3); Monocytes % (auto) 5.7 % (0.0-12.0); Neutrophils % (auto) 84.7 % (37.0-80.0); Platelet Count (auto) 70 10^3/uL (140-450); Red Blood Cells 3.23 10^6/uL (4.0-5.20); Red Cell Distribution Width 16.8 % (11.8-14.3); White Blood Cell 8.2 10^3/uL (4.4-10.8)
[2021-01-09 07:36] LABS: Albumin 1.9 g/dL (3.4-5.0); Calcium 8.2 mg/dL (8.5-10.1); Magnesium 2.2 mg/dL (1.6-2.6); Potassium 4.2 mmol/L (3.5-5.1)
[2021-01-09 07:40] LABS: BUN/Creatinine Ratio 48.5; Bilirubin, Total 1.2 mg/dL (0.2-1.0); Phosphorus 3.2 mg/dL (2.5-4.90); Total Protein 5.1 g/dL (6.4-8.2)
[2021-01-09] MEDS: SODIUM CHLOR 0.9% PF (SALINE LOCK) 10ML VIAL/SYR IV SCH ×2 (09:27→21:42)
[2021-01-09] MEDS: LINEZOLID 600MG/300ML 300 ML IV SCH (09:27)
[2021-01-09] MEDS: ENOXAPARIN SOD 80 MG/0.8ML SYRINGE SC SCH (09:27)
[2021-01-09] MEDS: PANTOPRAZOLE 40 MG/10 ML VIAL INJ IV SCH ×2 (09:27→21:42)
[2021-01-09] MEDS: TPN PER PHARMACY IV NR ×11 (19:55)
[2021-01-09] MEDS ORDERED: TPN*HIGH CONC* PER PHARMACY IV NR ×9 (20:00)
[2021-01-09] MEDS ORDERED: TPN PER PHARMACY IV NR ×8 (20:00)
[2021-01-10] MEDS: ACCU-CHEK COMFORT CURVE STRIP VI SCH ×5 (00:11→23:50)
[2021-01-10 05:00] VITALS: BP 156/74
[2021-01-10] MEDS: BENZOCAINE (DENTAL)20% 1 SPR SPRAY MT SCH ×4 (05:09→21:54)
[2021-01-10] MEDS: InsuLIN REG 1unit/0.01ml Soln (100units/ml) SC SCH ×5 (05:09→23:50)
[2021-01-10 06:28] LABS: Basophils # (auto) 0 10 ^3/uL (0-0.2); Hematocrit 31.5 % (36.0-46.0); Monocytes # (auto) 0.4 10 ^3/uL (0-1.3); Neutrophils # (auto) 5.9 10 ^3/uL (1.6-8.6); Nucleated Red Blood Cells % 0.1 %
[2021-01-10 06:31] LABS: Basophils % (auto) 0.2 % (0.0-2.0); Eosinophils # (auto) 0.2 10 ^3/uL (0-0.8); Eosinophils % (auto) 2.2 % (0.0-7.0); Hemoglobin 10.3 g/dL (12.2-16.2); Lymphocytes # (auto) 0.5 10 ^3/uL (0.4-5.4); Lymphocytes % (auto) 7.1 % (10.0-50.0); Mean Corpuscular Hemoglobin 31.7 pg (28.0-32.0); Mean Corpuscular Hgb Conc. 32.8 g/dL (32.0-36.0); Mean Corpuscular Volume 96.6 fL (80.0-100.0); Monocytes % (auto) 5.3 % (0.0-12.0); Neutrophils % (auto) 85.2 % (37.0-80.0); Red Blood Cells 3.26 10^6/uL (4.0-5.20); Red Cell Distribution Width 16.7 % (11.8-14.3)
[2021-01-10 06:54] LABS: Albumin 2.1 g/dL (3.4-5.0); Calcium 8.1 mg/dL (8.5-10.1); Magnesium 2.2 mg/dL (1.6-2.6); Potassium 4.3 mmol/L (3.5-5.1)
[2021-01-10 06:59] LABS: BUN/Creatinine Ratio 50.3; Bilirubin, Total 1.2 mg/dL (0.2-1.0); Phosphorus 2.8 mg/dL (2.5-4.90); Total Protein 5.6 g/dL (6.4-8.2)
[2021-01-10 08:15] LABS: Platelet Count (auto) 50 10^3/uL (140-450)
[2021-01-10 09:00] VITALS: BP 155/87
[2021-01-10] MEDS: ENOXAPARIN SOD 80 MG/0.8ML SYRINGE SC SCH (10:00)
[2021-01-10] MEDS: SODIUM CHLOR 0.9% PF (SALINE LOCK) 10ML VIAL/SYR IV SCH ×2 (10:08→21:54)
[2021-01-10] MEDS: PANTOPRAZOLE 40 MG/10 ML VIAL INJ IV SCH ×2 (10:08→21:54)
[2021-01-10 13:00] VITALS: BP 149/63
[2021-01-10 17:02] VITALS: BP 161/75
[2021-01-10] MEDS ORDERED: D5W 5% 1,000 ML IV ONE (20:00)
[2021-01-10] MEDS ORDERED: TPN PER PHARMACY IV NR ×9 (20:00)
[2021-01-10 22:00] VITALS: BP 156/77
[2021-01-11 05:00] VITALS: BP 156/77
[2021-01-11] MEDS: ACCU-CHEK COMFORT CURVE STRIP VI SCH ×4 (05:24→23:49)
[2021-01-11] MEDS: InsuLIN REG 1unit/0.01ml Soln (100units/ml) SC SCH ×4 (05:25→23:49)
[2021-01-11] MEDS: BENZOCAINE (DENTAL)20% 1 SPR SPRAY MT SCH ×4 (05:33→21:56)
[2021-01-11 05:56] LABS: Basophils # (auto) 0 10 ^3/uL (0-0.2); Eosinophils # (auto) 0.1 10 ^3/uL (0-0.8); Hematocrit 28.5 % (36.0-46.0); Hemoglobin 9.4 g/dL (12.2-16.2); Lymphocytes # (auto) 0.5 10 ^3/uL (0.4-5.4); Monocytes # (auto) 0.4 10 ^3/uL (0-1.3); Neutrophils # (auto) 4.8 10 ^3/uL (1.6-8.6); Red Cell Distribution Width 16.7 % (11.8-14.3); White Blood Cell 5.8 10^3/uL (4.4-10.8)
[2021-01-11 06:03] LABS: Basophils % (auto) 0.5 % (0.0-2.0); Eosinophils % (auto) 2.6 % (0.0-7.0); Lymphocytes % (auto) 7.9 % (10.0-50.0); Mean Corpuscular Hemoglobin 32.2 pg (28.0-32.0); Mean Corpuscular Hgb Conc. 32.9 g/dL (32.0-36.0); Mean Corpuscular Volume 97.8 fL (80.0-100.0); Monocytes % (auto) 6.8 % (0.0-12.0); Neutrophils % (auto) 82.2 % (37.0-80.0); Platelet Count (auto) 45 10^3/uL (140-450); Red Blood Cells 2.92 10^6/uL (4.0-5.20)
[2021-01-11 06:13] LABS: Potassium 3.7 mmol/L (3.5-5.1)
[2021-01-11 06:25] LABS: Albumin 1.9 g/dL (3.4-5.0); BUN/Creatinine Ratio 57.4; Bilirubin, Total 1.1 mg/dL (0.2-1.0); Calcium 7.7 mg/dL (8.5-10.1); Magnesium 2.1 mg/dL (1.6-2.6); Phosphorus 2.7 mg/dL (2.5-4.90); Total Protein 5.4 g/dL (6.4-8.2)
[2021-01-11 09:00] VITALS: BP 138/61
[2021-01-11] MEDS: PANTOPRAZOLE 40 MG/10 ML VIAL INJ IV SCH ×2 (10:44→21:56)
[2021-01-11] MEDS: SODIUM CHLOR 0.9% PF (SALINE LOCK) 10ML VIAL/SYR IV SCH ×2 (10:44→21:56)
[2021-01-11] MEDS ORDERED: ALBUMIN 25% 100 ML IV ONE (11:45)
[2021-01-11 13:01] VITALS: BP 157/78
[2021-01-11] MEDS: ALBUTEROL SULF 2.5 MG/0.5ML(0.5%) NEB SOLN NEB SCH ×2 (14:40→19:11)
[2021-01-11] MEDS: ACETYLCYSTEINE 20%(200MG/ML) SOL 4ML NEB SCH ×2 (14:40→19:11)
[2021-01-11 17:00] VITALS: BP 155/74
[2021-01-11] MEDS ORDERED: TPN PER PHARMACY IV NR ×10 (20:00)
[2021-01-11 22:00] VITALS: BP 136/72
[2021-01-12] VITALS (43 sets, daily range): BP systolic 73–154; BP diastolic 34–73
[2021-01-12 04:20] LABS: Basophils # (auto) 0 10 ^3/uL (0-0.2); Basophils % (auto) 0.5 % (0.0-2.0); Eosinophils # (auto) 0.1 10 ^3/uL (0-0.8); Eosinophils % (auto) 2.2 % (0.0-7.0); Hematocrit 26.3 % (36.0-46.0); Hemoglobin 8.5 g/dL (12.2-16.2); Lymphocytes # (auto) 0.5 10 ^3/uL (0.4-5.4); Lymphocytes % (auto) 9.6 % (10.0-50.0); Mean Corpuscular Hemoglobin 31.7 pg (28.0-32.0); Mean Corpuscular Hgb Conc. 32.2 g/dL (32.0-36.0); Mean Corpuscular Volume 98.6 fL (80.0-100.0); Monocytes # (auto) 0.5 10 ^3/uL (0-1.3); Monocytes % (auto) 9.2 % (0.0-12.0); Neutrophils # (auto) 4.2 10 ^3/uL (1.6-8.6); Neutrophils % (auto) 78.5 % (37.0-80.0); Nucleated Red Blood Cells % 0.1 %; Platelet Count (auto) 40 10^3/uL (140-450); Red Blood Cells 2.67 10^6/uL (4.0-5.20); Red Cell Distribution Width 16.7 % (11.8-14.3); White Blood Cell 5.3 10^3/uL (4.4-10.8)
[2021-01-12 04:39] LABS: Albumin 2.3 g/dL (3.4-5.0); Calcium 7.9 mg/dL (8.5-10.1); Magnesium 2.4 mg/dL (1.6-2.6); Potassium 3.8 mmol/L (3.5-5.1)
[2021-01-12 04:45] LABS: BUN/Creatinine Ratio 59.1; Bilirubin, Total 1.1 mg/dL (0.2-1.0); Phosphorus 2.8 mg/dL (2.5-4.90); Total Protein 5.6 g/dL (6.4-8.2)
[2021-01-12] MEDS: InsuLIN REG 1unit/0.01ml Soln (100units/ml) SC SCH ×3 (06:00→18:00)
[2021-01-12] MEDS: BENZOCAINE (DENTAL)20% 1 SPR SPRAY MT SCH ×4 (06:29→22:00)
[2021-01-12] MEDS: ACCU-CHEK COMFORT CURVE STRIP VI SCH ×3 (06:30→17:59)
[2021-01-12] MEDS: ALBUTEROL SULF 2.5 MG/0.5ML(0.5%) NEB SOLN NEB SCH ×3 (07:12→22:27)
[2021-01-12] MEDS: ACETYLCYSTEINE 20%(200MG/ML) SOL 4ML NEB SCH ×3 (07:12→22:27)
[2021-01-12] MEDS: SODIUM CHLOR 0.9% PF (SALINE LOCK) 10ML VIAL/SYR IV SCH ×2 (10:29→21:55)
[2021-01-12] MEDS: PANTOPRAZOLE 40 MG/10 ML VIAL INJ IV SCH ×2 (10:29→21:54)
[2021-01-12 10:52] LABS: Basophils # (auto) 0 10 ^3/uL (0-0.2); Basophils % (auto) 0.3 % (0.0-2.0); Eosinophils # (auto) 0.1 10 ^3/uL (0-0.8); Eosinophils % (auto) 2.1 % (0.0-7.0); Hemoglobin 9.1 g/dL (12.2-16.2); Lymphocytes # (auto) 0.5 10 ^3/uL (0.4-5.4); Lymphocytes % (auto) 7.5 % (10.0-50.0); Mean Corpuscular Hemoglobin 31.7 pg (28.0-32.0); Mean Corpuscular Hgb Conc. 32.5 g/dL (32.0-36.0); Mean Corpuscular Volume 97.4 fL (80.0-100.0); Monocytes # (auto) 0.7 10 ^3/uL (0-1.3); Monocytes % (auto) 10.5 % (0.0-12.0); Neutrophils # (auto) 5.4 10 ^3/uL (1.6-8.6); Neutrophils % (auto) 79.6 % (37.0-80.0); Nucleated Red Blood Cells % 0.1 %; Platelet Count (auto) 66 10^3/uL (140-450); Red Blood Cells 2.87 10^6/uL (4.0-5.20); Red Cell Distribution Width 16.7 % (11.8-14.3); White Blood Cell 6.8 10^3/uL (4.4-10.8)
[2021-01-12 11:11] LABS: INR 1.12 (0.9-1.15)
[2021-01-12] MEDS ORDERED: ALBUMIN 25% 100 ML IV ONE (11:45)
[2021-01-12] MEDS ORDERED: EPINEPHrine HCL 1 MG/1 ML AMP ONE (13:17)
[2021-01-12] MEDS ORDERED: LIDOCAINE 2%HCL (LOCAL ANESTH.) INJ 20ML MDV ONE (13:17)
[2021-01-12] MEDS ORDERED: SODIUM CHLORIDE LOCK 30 ML ONE (13:17)
[2021-01-12] MEDS ORDERED: LIDOCAINE HCL 2% TOP JELLY 5ML TOP ONE (13:18)
[2021-01-12] MEDS ORDERED: DexAMETHasone SOD PHOS 10MG/1ML VIAL INJ IV ONE (13:34)
[2021-01-12] MEDS ORDERED: PHENYLEPHRINE HCL 10 MG/ML VL IV ONE (13:34)
[2021-01-12] MEDS ORDERED: SUCCINYLCHOLINE CHLORIDE 20 MG/ML 10ML VIAL IV ONE (13:39)
[2021-01-12] MEDS ORDERED: MIDAZOLAM HCL 1MG/1ML-2 ML VIAL ONE (13:48)
[2021-01-12] MEDS ORDERED: HYDROmorphone HCL 2 MG/ML VL ONE (13:48)
[2021-01-12] MEDS ORDERED: fentaNYL CITRATE 100 MCG/2 ML VL ONE (13:48)
[2021-01-12] MEDS ORDERED: MIDAZOLAM DRIP 50 mg/50mL 50 ML IV ONE (15:16)
[2021-01-12] MEDS ORDERED: fentaNYL Drip 2500mCg/250mlNS 250 ML IV ONE (15:16)
[2021-01-12] MEDS ORDERED: MIDAZOLAM HCL 1MG/1ML-2 ML VIAL IV PRN (15:45)
[2021-01-12] MEDS: fentaNYL Drip 2500mCg/250mlNS 250 ML IV SCH (15:45)
[2021-01-12] MEDS ORDERED: LABETALOL HCL 5 MG/ML 4ML SYRINGE IV PRN (15:45)
[2021-01-12] MEDS ORDERED: ePHEDrine SULFATE 50 MG/ML AMP IV PRN (15:45)
[2021-01-12] MEDS ORDERED: MORPHINE SULF INJ 2 MG/ML SYRINGE 1ML IV PRN (15:45)
[2021-01-12] MEDS ORDERED: ONDANSETRON HCL 4 MG/2 ML VIAL IV PRN (15:45)
[2021-01-12] MEDS ORDERED: HYDROmorphone HCL 2 MG/ML VL IV PRN (15:45)
[2021-01-12] MEDS: MIDAZOLAM DRIP 50 mg/50mL 50 ML IV SCH (15:45)
[2021-01-12] MEDS ORDERED: NOREPINEPHRINE 8 MG/250ML KIT 250 ML IV ONE (15:58)
[2021-01-12] MEDS ORDERED: NOREPINEPHRINE 8 MG/250ML KIT 250 ML IV SCH (16:15)
[2021-01-12] MEDS ORDERED: TPN PER PHARMACY IV NR ×9 (20:00)
[2021-01-13] VITALS (96 sets, daily range): BP systolic 87–156; BP diastolic 23–73
[2021-01-13] MEDS: ACCU-CHEK COMFORT CURVE STRIP VI SCH ×4 (00:22→17:29)
[2021-01-13] MEDS: InsuLIN REG 1unit/0.01ml Soln (100units/ml) SC SCH ×4 (00:22→17:30)
[2021-01-13 04:11] LABS: Basophils # (auto) 0 10 ^3/uL (0-0.2); Basophils % (auto) 0.1 % (0.0-2.0); Eosinophils # (auto) 0 10 ^3/uL (0-0.8); Lymphocytes # (auto) 0.3 10 ^3/uL (0.4-5.4); Monocytes # (auto) 0.3 10 ^3/uL (0-1.3); Neutrophils # (auto) 4.2 10 ^3/uL (1.6-8.6); Nucleated Red Blood Cells % 0.1 %
[2021-01-13 04:15] LABS: Hematocrit 26.4 % (36.0-46.0); Hemoglobin 8.4 g/dL (12.2-16.2); Mean Corpuscular Hemoglobin 32.9 pg (28.0-32.0); Mean Corpuscular Hgb Conc. 31.6 g/dL (32.0-36.0); Monocytes % (auto) 5.3 % (0.0-12.0); Neutrophils % (auto) 88.6 % (37.0-80.0); Platelet Count (auto) 67 10^3/uL (140-450); Red Blood Cells 2.54 10^6/uL (4.0-5.20); Red Cell Distribution Width 17.7 % (11.8-14.3); White Blood Cell 4.7 10^3/uL (4.4-10.8)
[2021-01-13] MEDS: BENZOCAINE (DENTAL)20% 1 SPR SPRAY MT SCH (06:00)
[2021-01-13] MEDS: ACETYLCYSTEINE 20%(200MG/ML) SOL 4ML NEB SCH ×3 (06:43→22:10)
[2021-01-13] MEDS: ALBUTEROL SULF 2.5 MG/0.5ML(0.5%) NEB SOLN NEB SCH ×3 (06:43→22:10)
[2021-01-13 08:17] LABS: Albumin 2.3 g/dL (3.4-5.0); Magnesium 2.4 mg/dL (1.6-2.6); Potassium 4.2 mmol/L (3.5-5.1)
[2021-01-13 08:22] LABS: BUN/Creatinine Ratio 54.9; Bilirubin, Total 0.7 mg/dL (0.2-1.0); Phosphorus 3.6 mg/dL (2.5-4.90); Pre Albumin 25.1 mg/dL (20.0-40.0)
[2021-01-13] MEDS: SODIUM CHLOR 0.9% PF (SALINE LOCK) 10ML VIAL/SYR IV SCH ×2 (10:00→23:03)
[2021-01-13] MEDS: PANTOPRAZOLE 40 MG/10 ML VIAL INJ IV SCH ×2 (10:56→23:03)
[2021-01-13] MEDS ORDERED: SODIUM CHLORIDE 0.9% 1,000 ML IV SCH (11:15)
[2021-01-13] MEDS ORDERED: VORICONAZOLE INJ 0 MG in D5W 5% 250 ML IV SCH (11:30)
[2021-01-13] MEDS ORDERED: ALBUMIN 25% 100 ML IV ONE (11:45)
[2021-01-13] MEDS ORDERED: BENZOCAINE (DENTAL) 20 % SPRAY 60ML MT ONE (13:01)
[2021-01-13] MEDS ORDERED: SODIUM CHLORIDE LOCK 0 ML ONE (13:02)
[2021-01-13] MEDS ORDERED: LIDOCAINE HCL 2% TOP JELLY 5ML TOP ONE (13:02)
[2021-01-13] MEDS ORDERED: LIDOCAINE 2%HCL (LOCAL ANESTH.) INJ 20ML MDV ONE (13:02)
[2021-01-13] MEDS ORDERED: GLYCOPYRROLATE 0.2 MG/ML 1ML VIAL ONE (13:02)
[2021-01-13] MEDS ORDERED: MIDAZOLAM HCL 5 MG/ML-1ML VIAL ONE (13:03)
[2021-01-13] MEDS ORDERED: fentaNYL CITRATE 100 MCG/2 ML VL ONE (13:03)
[2021-01-13] MEDS: MIDAZOLAM DRIP 50 mg/50mL 50 ML IV SCH (15:36)
[2021-01-13] MEDS: MICAFUNGIN SODIUM 100 MG in SODIUM CHL 0.9% 100 ML IV SCH (15:43)
[2021-01-13] MEDS: fentaNYL Drip 2500mCg/250mlNS 250 ML IV SCH (15:45)
[2021-01-13] MEDS: D5W 5% 1,000 ML IV SCH (17:32)
[2021-01-13] MEDS ORDERED: TPN PER PHARMACY IV NR ×7 (20:00)
[2021-01-14] VITALS (95 sets, daily range): BP systolic 91–183; BP diastolic 36–80
[2021-01-14] MEDS: ACCU-CHEK COMFORT CURVE STRIP VI SCH ×5 (00:50→23:44)
[2021-01-14] MEDS: InsuLIN REG 1unit/0.01ml Soln (100units/ml) SC SCH ×5 (00:52→23:45)
[2021-01-14] MEDS: MIDAZOLAM DRIP 50 mg/50mL 50 ML IV SCH (02:08)
[2021-01-14 04:08] LABS: Basophils # (auto) 0 10 ^3/uL (0-0.2); Basophils % (auto) 0.4 % (0.0-2.0); Eosinophils # (auto) 0 10 ^3/uL (0-0.8); Hemoglobin 7.6 g/dL (12.2-16.2); Lymphocytes # (auto) 0.4 10 ^3/uL (0.4-5.4); White Blood Cell 6.3 10^3/uL (4.4-10.8)
[2021-01-14 04:10] LABS: Eosinophils % (auto) 0.3 % (0.0-7.0); Hematocrit 23.3 % (36.0-46.0); Lymphocytes % (auto) 6.7 % (10.0-50.0); Mean Corpuscular Hemoglobin 32.2 pg (28.0-32.0); Mean Corpuscular Hgb Conc. 32.5 g/dL (32.0-36.0); Mean Corpuscular Volume 98.8 fL (80.0-100.0); Monocytes # (auto) 0.8 10 ^3/uL (0-1.3); Neutrophils % (auto) 79.6 % (37.0-80.0); Platelet Count (auto) 80 10^3/uL (140-450); Red Blood Cells 2.36 10^6/uL (4.0-5.20); Red Cell Distribution Width 16.7 % (11.8-14.3)
[2021-01-14] MEDS: D5W 5% 1,000 ML IV SCH ×3 (04:14→23:22)
[2021-01-14 05:04] LABS: Albumin 2.4 g/dL (3.4-5.0); BUN/Creatinine Ratio 62.2; Calcium 7.5 mg/dL (8.5-10.1); Magnesium 1.9 mg/dL (1.6-2.6); Potassium 3.4 mmol/L (3.5-5.1)
[2021-01-14 05:06] LABS: Bilirubin, Total 0.8 mg/dL (0.2-1.0); Phosphorus 2.5 mg/dL (2.5-4.90); Total Protein 5.7 g/dL (6.4-8.2)
[2021-01-14] MEDS: ALBUTEROL SULF 2.5 MG/0.5ML(0.5%) NEB SOLN NEB SCH ×3 (05:52→22:09)
[2021-01-14] MEDS: ACETYLCYSTEINE 20%(200MG/ML) SOL 4ML NEB SCH ×3 (05:52→22:09)
[2021-01-14] MEDS: PANTOPRAZOLE 40 MG/10 ML VIAL INJ IV SCH ×2 (09:44→21:36)
[2021-01-14] MEDS: MICAFUNGIN SODIUM 100 MG in SODIUM CHL 0.9% 100 ML IV SCH (09:45)
[2021-01-14] MEDS: SODIUM CHLOR 0.9% PF (SALINE LOCK) 10ML VIAL/SYR IV SCH ×2 (09:45→21:35)
[2021-01-14] MEDS ORDERED: POTASSIUM PHOSP 22MEQ(15MMOLE) in NS 100 ML IV ONE (10:00)
[2021-01-14] MEDS ORDERED: FUROSEMIDE 20 MG/2 ML VIAL IV ONE (13:00)
[2021-01-14] MEDS: fentaNYL Drip 2500mCg/250mlNS 250 ML IV SCH (15:45)
[2021-01-14] MEDS ORDERED: TPN PER PHARMACY IV NR ×8 (20:00)
[2021-01-14] MEDS: BENZOCAINE (DENTAL)20% 1 SPR SPRAY MT SCH (21:35)
[2021-01-14 22:03] LABS: Basophils # (auto) 0 10 ^3/uL (0-0.2); Basophils % (auto) 0.6 % (0.0-2.0); Eosinophils # (auto) 0.1 10 ^3/uL (0-0.8); Eosinophils % (auto) 1.5 % (0.0-7.0); Hemoglobin 8.2 g/dL (12.2-16.2); Lymphocytes # (auto) 0.5 10 ^3/uL (0.4-5.4); Lymphocytes % (auto) 7.5 % (10.0-50.0); Mean Corpuscular Hemoglobin 33.1 pg (28.0-32.0); Mean Corpuscular Hgb Conc. 30.5 g/dL (32.0-36.0); Mean Corpuscular Volume 108.7 fL (80.0-100.0); Monocytes # (auto) 0.9 10 ^3/uL (0-1.3); Monocytes % (auto) 13.7 % (0.0-12.0); Neutrophils # (auto) 5.2 10 ^3/uL (1.6-8.6); Neutrophils % (auto) 76.7 % (37.0-80.0); Platelet Count (auto) 116 10^3/uL (140-450); Red Blood Cells 2.48 10^6/uL (4.0-5.20); Red Cell Distribution Width 18.6 % (11.8-14.3); White Blood Cell 6.8 10^3/uL (4.4-10.8)
[2021-01-14] MEDS: hydrALAZINE HCL 20 MG/ML VL IV PRN (22:38)
[2021-01-14] MEDS ORDERED: dilTIAZem 25 MG/5 ML VIAL IV ONE (23:45)
[2021-01-15] VITALS (104 sets, daily range): BP systolic 86–172; BP diastolic 27–74
[2021-01-15] MEDS: InsuLIN REG 1unit/0.01ml Soln (100units/ml) SC SCH ×4 (05:36→23:36)
[2021-01-15] MEDS: ACCU-CHEK COMFORT CURVE STRIP VI SCH ×4 (05:36→23:36)
[2021-01-15] MEDS: ALBUTEROL SULF 2.5 MG/0.5ML(0.5%) NEB SOLN NEB SCH ×3 (06:20→18:29)
[2021-01-15] MEDS: ACETYLCYSTEINE 20%(200MG/ML) SOL 4ML NEB SCH ×3 (06:20→18:29)
[2021-01-15 07:18] LABS: Albumin 2.4 g/dL (3.4-5.0); Potassium 3.9 mmol/L (3.5-5.1)
[2021-01-15 07:22] LABS: BUN/Creatinine Ratio 53.8; Calcium 7.8 mg/dL (8.5-10.1)
[2021-01-15 07:24] LABS: Bilirubin, Total 0.9 mg/dL (0.2-1.0); Magnesium 1.7 mg/dL (1.6-2.6); Total Protein 6.1 g/dL (6.4-8.2)
[2021-01-15] MEDS: MICAFUNGIN SODIUM 100 MG in SODIUM CHL 0.9% 100 ML IV SCH (09:35)
[2021-01-15] MEDS: PANTOPRAZOLE 40 MG/10 ML VIAL INJ IV SCH ×2 (09:35→21:45)
[2021-01-15] MEDS: SODIUM CHLOR 0.9% PF (SALINE LOCK) 10ML VIAL/SYR IV SCH ×2 (09:35→21:45)
[2021-01-15] MEDS: D5W 5% 1,000 ML IV SCH ×2 (09:36→14:01)
[2021-01-15] MEDS: CARVEDILOL 12.5 MG TAB PO SCH ×2 (10:45→21:45)
[2021-01-15] MEDS ORDERED: SODIUM PHOSP 20MEQ(15MMOL) IN NS 100 ML IV ONE (12:00)
[2021-01-15] MEDS: hydrALAZINE HCL 20 MG/ML VL IV PRN (13:47)
[2021-01-15] MEDS: fentaNYL Drip 2500mCg/250mlNS 250 ML IV SCH (14:25)
[2021-01-15] MEDS: MIDAZOLAM DRIP 50 mg/50mL 50 ML IV SCH (14:26)
[2021-01-15] MEDS ORDERED: TPN PER PHARMACY IV NR ×8 (20:00)
[2021-01-16] VITALS (97 sets, daily range): BP systolic 110–160; BP diastolic 31–88
[2021-01-16] MEDS: D5W 5% 1,000 ML IV SCH (04:14)
[2021-01-16 04:35] LABS: Potassium 3.9 mmol/L (3.5-5.1)
[2021-01-16 04:40] LABS: Albumin 2.3 g/dL (3.4-5.0); BUN/Creatinine Ratio 55.7; Bilirubin, Total 0.8 mg/dL (0.2-1.0); Calcium 7.9 mg/dL (8.5-10.1)
[2021-01-16] MEDS: InsuLIN REG 1unit/0.01ml Soln (100units/ml) SC SCH ×4 (05:32→23:26)
[2021-01-16] MEDS: ACCU-CHEK COMFORT CURVE STRIP VI SCH ×4 (05:32→23:27)
[2021-01-16] MEDS: ALBUTEROL SULF 2.5 MG/0.5ML(0.5%) NEB SOLN NEB SCH ×3 (06:20→19:34)
[2021-01-16] MEDS: ACETYLCYSTEINE 20%(200MG/ML) SOL 4ML NEB SCH ×3 (06:20→19:34)
[2021-01-16] MEDS: MICAFUNGIN SODIUM 100 MG in SODIUM CHL 0.9% 100 ML IV SCH (10:00)
[2021-01-16] MEDS: SODIUM CHLOR 0.9% PF (SALINE LOCK) 10ML VIAL/SYR IV SCH ×2 (10:00→21:49)
[2021-01-16] MEDS: PANTOPRAZOLE 40 MG/10 ML VIAL INJ IV SCH ×2 (10:00→21:49)
[2021-01-16] MEDS: CARVEDILOL 12.5 MG TAB PO SCH ×2 (10:00→21:50)
[2021-01-16] MEDS: MIDAZOLAM DRIP 50 mg/50mL 50 ML IV SCH (13:26)
[2021-01-16] MEDS: fentaNYL Drip 2500mCg/250mlNS 250 ML IV SCH (13:26)
[2021-01-16] MEDS ORDERED: EPINEPHrine HCL 0.5 ML NEB NEB ONE (13:30)
[2021-01-16] MEDS: AMIODARONE 450mg/250ml AE 250 ML IV SCH (15:00)
[2021-01-16] MEDS ORDERED: TPN PER PHARMACY IV SCH ×8 (20:00)
[2021-01-17] VITALS (92 sets, daily range): BP systolic 91–175; BP diastolic 25–106
[2021-01-17] MEDS: D5W 5% 1,000 ML IV SCH (00:04)
[2021-01-17 04:28] LABS: Calcium 7.9 mg/dL (8.5-10.1)
[2021-01-17 04:34] LABS: Albumin 2.2 g/dL (3.4-5.0); BUN/Creatinine Ratio 52.4; Magnesium 2.1 mg/dL (1.6-2.6); Phosphorus 2.8 mg/dL (2.5-4.90); Total Protein 6.4 g/dL (6.4-8.2)
[2021-01-17 04:43] LABS: Hematocrit 26.8 % (36.0-46.0); Hemoglobin 8.8 g/dL (12.2-16.2); Mean Corpuscular Hemoglobin 31.7 pg (28.0-32.0); Mean Corpuscular Hgb Conc. 32.7 g/dL (32.0-36.0); Platelet Count (auto) 164 10^3/uL (140-450); Red Blood Cells 2.76 10^6/uL (4.0-5.20); Red Cell Distribution Width 16.7 % (11.8-14.3); White Blood Cell 11.4 10^3/uL (4.4-10.8)
[2021-01-17 04:47] LABS: Basophils % (manual) 0 (0.0-2.0); Blast Cells 0; Eosinophils % (manual) 0 (0-7); Metamyelocytes % 0; Myelocytes % 0; Promyelocytes % 0; Reactive Lymphocytes 0
[2021-01-17 05:16] LABS: Band Neutrophils % (manual) 14; Lymphocytes % (manual) 4 (10.0-50.0); Monocytes % (manual) 7 (0-12)
[2021-01-17] MEDS ORDERED: LORazepam 2MG/ML-1ML VIAL IM ONE (05:45)
[2021-01-17] MEDS ORDERED: LORazepam 2MG/ML-1ML VIAL ONE (05:49)
[2021-01-17] MEDS: ACCU-CHEK COMFORT CURVE STRIP VI SCH ×3 (06:04→17:35)
[2021-01-17] MEDS: InsuLIN REG 1unit/0.01ml Soln (100units/ml) SC SCH ×3 (06:05→17:35)
[2021-01-17] MEDS: AMIODARONE 450mg/250ml AE 250 ML IV SCH ×2 (06:30→20:25)
[2021-01-17] MEDS: ACETYLCYSTEINE 20%(200MG/ML) SOL 4ML NEB SCH ×3 (06:50→22:08)
[2021-01-17] MEDS: ALBUTEROL SULF 2.5 MG/0.5ML(0.5%) NEB SOLN NEB SCH ×3 (06:50→22:08)
[2021-01-17] MEDS: MICAFUNGIN SODIUM 100 MG in SODIUM CHL 0.9% 100 ML IV SCH (09:54)
[2021-01-17] MEDS: PANTOPRAZOLE 40 MG/10 ML VIAL INJ IV SCH ×2 (09:54→21:49)
[2021-01-17] MEDS: SODIUM CHLOR 0.9% PF (SALINE LOCK) 10ML VIAL/SYR IV SCH ×2 (09:55→21:49)
[2021-01-17] MEDS: CARVEDILOL 12.5 MG TAB PO SCH ×2 (09:55→21:50)
[2021-01-17] MEDS ORDERED: TPN PER PHARMACY IV SCH ×24 (11:00→20:00)
[2021-01-17] MEDS: BENZOCAINE (DENTAL)20% 1 SPR SPRAY MT SCH (11:45)
[2021-01-17] MEDS: MIDAZOLAM DRIP 50 mg/50mL 50 ML IV SCH (12:29)
[2021-01-17] MEDS: fentaNYL Drip 2500mCg/250mlNS 250 ML IV SCH (12:29)
[2021-01-17] MEDS ORDERED: TPN PER PHARMACY IV NR ×8 (20:00)
[2021-01-18] VITALS (90 sets, daily range): BP systolic 100–154; BP diastolic 33–80
[2021-01-18] MEDS: ACCU-CHEK COMFORT CURVE STRIP VI SCH ×3 (00:23→18:00)
[2021-01-18] MEDS: ALBUTEROL SULF 2.5 MG/0.5ML(0.5%) NEB SOLN NEB SCH ×3 (06:23→18:46)
[2021-01-18] MEDS: ACETYLCYSTEINE 20%(200MG/ML) SOL 4ML NEB SCH ×3 (06:24→18:47)
[2021-01-18 06:27] LABS: Basophils # (auto) 0.1 10 ^3/uL (0-0.2); Basophils % (auto) 1.3 % (0.0-2.0); Eosinophils # (auto) 0.1 10 ^3/uL (0-0.8); Eosinophils % (auto) 1.6 % (0.0-7.0); Hematocrit 28.2 % (36.0-46.0); Lymphocytes # (auto) 0.9 10 ^3/uL (0.4-5.4); Lymphocytes % (auto) 9.8 % (10.0-50.0); Mean Corpuscular Hemoglobin 31.1 pg (28.0-32.0); Mean Corpuscular Hgb Conc. 31.8 g/dL (32.0-36.0); Mean Corpuscular Volume 97.9 fL (80.0-100.0); Monocytes # (auto) 0.8 10 ^3/uL (0-1.3); Monocytes % (auto) 8.2 % (0.0-12.0); Neutrophils # (auto) 7.4 10 ^3/uL (1.6-8.6); Neutrophils % (auto) 79.1 % (37.0-80.0); Nucleated Red Blood Cells % 0.1 %; Platelet Count (auto) 178 10^3/uL (140-450); Red Blood Cells 2.88 10^6/uL (4.0-5.20); Red Cell Distribution Width 17.4 % (11.8-14.3); White Blood Cell 9.3 10^3/uL (4.4-10.8)
[2021-01-18 06:41] LABS: Albumin 2.1 g/dL (3.4-5.0); Magnesium 2.4 mg/dL (1.6-2.6); Potassium 4.1 mmol/L (3.5-5.1)
[2021-01-18 06:44] LABS: BUN/Creatinine Ratio 57.8; Phosphorus 3.5 mg/dL (2.5-4.90)
[2021-01-18] MEDS: InsuLIN REG 1unit/0.01ml Soln (100units/ml) SC SCH ×4 (07:00→18:00)
[2021-01-18] MEDS: PANTOPRAZOLE 40 MG/10 ML VIAL INJ IV SCH ×2 (10:10→21:31)
[2021-01-18] MEDS: CARVEDILOL 12.5 MG TAB PO SCH ×3 (10:12→22:15)
[2021-01-18] MEDS: SODIUM CHLOR 0.9% PF (SALINE LOCK) 10ML VIAL/SYR IV SCH ×2 (10:12→21:31)
[2021-01-18] MEDS: MICAFUNGIN SODIUM 100 MG in SODIUM CHL 0.9% 100 ML IV SCH (10:17)
[2021-01-18] MEDS ORDERED: AMIODARONE HCL 200 MG TAB PO ONE (12:45)
[2021-01-18] MEDS ORDERED: FUROSEMIDE 40 MG/4 ML VIAL IV ONE ×2 (12:45→13:15)
[2021-01-18] MEDS: AMIODARONE 450mg/250ml AE 250 ML IV SCH (14:37)
[2021-01-18] MEDS: MIDAZOLAM DRIP 50 mg/50mL 50 ML IV SCH (15:00)
[2021-01-18] MEDS: fentaNYL Drip 2500mCg/250mlNS 250 ML IV SCH (15:45)
[2021-01-18 18:43] LABS: INR 1.41 (0.9-1.15)
[2021-01-18] MEDS ORDERED: TPN PER PHARMACY IV NR ×9 (20:00)
[2021-01-18] MEDS: ENOXAPARIN SOD 40 MG/0.4 ML SYRINGE SC SCH (21:30)
[2021-01-18] MEDS: AMIODARONE HCL 200 MG TAB PO SCH ×2 (21:31→22:00)
[2021-01-19] VITALS (96 sets, daily range): BP systolic 96–178; BP diastolic 25–84
[2021-01-19] MEDS: ACCU-CHEK COMFORT CURVE STRIP VI SCH ×4 (00:16→17:51)
[2021-01-19] MEDS: AMIODARONE 450mg/250ml AE 250 ML IV SCH (05:00)
[2021-01-19] MEDS: InsuLIN REG 1unit/0.01ml Soln (100units/ml) SC SCH ×4 (06:00→17:51)
[2021-01-19] MEDS: ALBUTEROL SULF 2.5 MG/0.5ML(0.5%) NEB SOLN NEB SCH ×3 (06:19→22:08)
[2021-01-19] MEDS: ACETYLCYSTEINE 20%(200MG/ML) SOL 4ML NEB SCH ×3 (06:19→22:08)
[2021-01-19 07:14] LABS: Hemoglobin 8.2 g/dL (12.2-16.2); White Blood Cell 6.4 10^3/uL (4.4-10.8)
[2021-01-19 07:18] LABS: Mean Corpuscular Hemoglobin 31.6 pg (28.0-32.0); Mean Corpuscular Hgb Conc. 32.7 g/dL (32.0-36.0); Mean Corpuscular Volume 96.6 fL (80.0-100.0); Platelet Count (auto) 169 10^3/uL (140-450); Red Blood Cells 2.59 10^6/uL (4.0-5.20); Red Cell Distribution Width 17.1 % (11.8-14.3)
[2021-01-19 07:38] LABS: Potassium 3.7 mmol/L (3.5-5.1)
[2021-01-19 07:49] LABS: BUN/Creatinine Ratio 57.4; Calcium 7.6 mg/dL (8.5-10.1); Magnesium 2.4 mg/dL (1.6-2.6); Phosphorus 3.1 mg/dL (2.5-4.90); Total Protein 5.9 g/dL (6.4-8.2)
[2021-01-19 07:52] LABS: Basophils % (manual) 0 (0.0-2.0); Blast Cells 0; Promyelocytes % 0
[2021-01-19] MEDS: AMIODARONE HCL 200 MG TAB PO SCH ×3 (10:00→22:00)
[2021-01-19] MEDS: ENOXAPARIN SOD 40 MG/0.4 ML SYRINGE SC SCH ×2 (10:07→22:00)
[2021-01-19] MEDS: PANTOPRAZOLE 40 MG/10 ML VIAL INJ IV SCH ×2 (10:07→22:00)
[2021-01-19] MEDS: SODIUM CHLOR 0.9% PF (SALINE LOCK) 10ML VIAL/SYR IV SCH ×2 (10:08→22:00)
[2021-01-19] MEDS: MICAFUNGIN SODIUM 100 MG in SODIUM CHL 0.9% 100 ML IV SCH (10:14)
[2021-01-19] MEDS: CARVEDILOL 12.5 MG TAB PO SCH ×3 (10:20→22:00)
[2021-01-19 10:49] LABS: Band Neutrophils % (manual) 4; Eosinophils % (manual) 5 (0-7); Lymphocytes % (manual) 7 (10.0-50.0); Metamyelocytes % 2; Monocytes % (manual) 5 (0-12); Myelocytes % 1; Reactive Lymphocytes 1
[2021-01-19] MEDS ORDERED: FUROSEMIDE 20 MG/2 ML VIAL IV ONE (11:15)
[2021-01-19] MEDS ORDERED: LIDOCAINE 1% (LOCAL ANESTH.) PF 5ml SDV ID ONE (13:00)
[2021-01-19] MEDS ORDERED: TPN PER PHARMACY IV NR ×8 (20:00)
[2021-01-20] VITALS (63 sets, daily range): BP systolic 90–166; BP diastolic 14–82
[2021-01-20] MEDS: InsuLIN REG 1unit/0.01ml Soln (100units/ml) SC SCH ×5 (06:00→23:54)
[2021-01-20] MEDS: ACCU-CHEK COMFORT CURVE STRIP VI SCH ×5 (06:00→23:54)
[2021-01-20 06:43] LABS: Basophils # (auto) 0 10 ^3/uL (0-0.2); Eosinophils # (auto) 0.1 10 ^3/uL (0-0.8); Eosinophils % (auto) 1.4 % (0.0-7.0); Hemoglobin 8.4 g/dL (12.2-16.2); Lymphocytes # (auto) 0.5 10 ^3/uL (0.4-5.4); Monocytes # (auto) 0.5 10 ^3/uL (0-1.3); Neutrophils % (auto) 82.4 % (37.0-80.0)
[2021-01-20 06:45] LABS: Basophils % (auto) 0.4 % (0.0-2.0); Hematocrit 26.4 % (36.0-46.0); Lymphocytes % (auto) 8.1 % (10.0-50.0); Mean Corpuscular Hemoglobin 30.9 pg (28.0-32.0); Mean Corpuscular Hgb Conc. 31.8 g/dL (32.0-36.0); Mean Corpuscular Volume 97.2 fL (80.0-100.0); Monocytes % (auto) 7.7 % (0.0-12.0); Neutrophils # (auto) 5.3 10 ^3/uL (1.6-8.6); Platelet Count (auto) 172 10^3/uL (140-450); Red Blood Cells 2.72 10^6/uL (4.0-5.20); Red Cell Distribution Width 17.2 % (11.8-14.3); White Blood Cell 6.4 10^3/uL (4.4-10.8)
[2021-01-20] MEDS: ALBUTEROL SULF 2.5 MG/0.5ML(0.5%) NEB SOLN NEB SCH ×3 (07:04→19:08)
[2021-01-20 07:05] LABS: Albumin 2.1 g/dL (3.4-5.0); Calcium 7.5 mg/dL (8.5-10.1); Magnesium 2.3 mg/dL (1.6-2.6); Potassium 3.8 mmol/L (3.5-5.1)
[2021-01-20] MEDS: ACETYLCYSTEINE 20%(200MG/ML) SOL 4ML NEB SCH ×3 (07:06→19:09)
[2021-01-20 07:10] LABS: BUN/Creatinine Ratio 57.8; Bilirubin, Total 0.8 mg/dL (0.2-1.0); Phosphorus 3.3 mg/dL (2.5-4.90); Total Protein 6.1 g/dL (6.4-8.2)
[2021-01-20] MEDS: ENOXAPARIN SOD 40 MG/0.4 ML SYRINGE SC SCH ×2 (09:46→22:31)
[2021-01-20] MEDS: SODIUM CHLOR 0.9% PF (SALINE LOCK) 10ML VIAL/SYR IV SCH ×2 (09:46→22:29)
[2021-01-20] MEDS: PANTOPRAZOLE 40 MG/10 ML VIAL INJ IV SCH ×2 (09:46→22:29)
[2021-01-20] MEDS: CARVEDILOL 12.5 MG TAB PO SCH ×2 (09:47→22:00)
[2021-01-20] MEDS: AMIODARONE HCL 200 MG TAB PO SCH (09:47)
[2021-01-20] MEDS: MICAFUNGIN SODIUM 100 MG in SODIUM CHL 0.9% 100 ML IV SCH (09:53)
[2021-01-20] MEDS ORDERED: FUROSEMIDE 20 MG/2 ML VIAL IV ONE (13:15)
[2021-01-20] MEDS ORDERED: TPN PER PHARMACY IV NR ×8 (20:00)
[2021-01-21 05:00] VITALS: BP 91/40
[2021-01-21] MEDS: InsuLIN REG 1unit/0.01ml Soln (100units/ml) SC SCH ×4 (06:00→23:44)
[2021-01-21] MEDS: ACCU-CHEK COMFORT CURVE STRIP VI SCH ×4 (06:18→23:44)
[2021-01-21] MEDS: ACETYLCYSTEINE 20%(200MG/ML) SOL 4ML NEB SCH ×3 (07:01→19:04)
[2021-01-21] MEDS: ALBUTEROL SULF 2.5 MG/0.5ML(0.5%) NEB SOLN NEB SCH ×3 (07:01→19:04)
[2021-01-21 07:30] LABS: Potassium 3.9 mmol/L (3.5-5.1)
[2021-01-21 07:36] LABS: Albumin 2.2 g/dL (3.4-5.0); BUN/Creatinine Ratio 56.4; Bilirubin, Total 0.8 mg/dL (0.2-1.0); Calcium 7.8 mg/dL (8.5-10.1); Magnesium 2.4 mg/dL (1.6-2.6); Phosphorus 2.6 mg/dL (2.5-4.90); Total Protein 6.7 g/dL (6.4-8.2)
[2021-01-21 08:24] VITALS: BP 94/48
[2021-01-21 09:00] VITALS: BP 97/39
[2021-01-21] MEDS ORDERED: ALBUMIN 25% 100 ML IV ONE (09:00)
[2021-01-21] MEDS: CARVEDILOL 12.5 MG TAB PO SCH ×2 (10:00→23:02)
[2021-01-21] MEDS: ENOXAPARIN SOD 40 MG/0.4 ML SYRINGE SC SCH ×2 (10:00→23:03)
[2021-01-21] MEDS: SODIUM CHLOR 0.9% PF (SALINE LOCK) 10ML VIAL/SYR IV SCH ×2 (10:00→23:01)
[2021-01-21] MEDS ORDERED: FUROSEMIDE 20 MG/2 ML VIAL IV ONE (10:00)
[2021-01-21] MEDS: MICAFUNGIN SODIUM 100 MG in SODIUM CHL 0.9% 100 ML IV SCH (11:20)
[2021-01-21] MEDS: PANTOPRAZOLE 40 MG/10 ML VIAL INJ IV SCH ×2 (11:36→23:01)
[2021-01-21 13:00] VITALS: BP 132/67
[2021-01-21 16:50] VITALS: BP 128/65
[2021-01-21] MEDS ORDERED: TPN PER PHARMACY IV NR ×8 (20:00)
[2021-01-21 22:33] VITALS: BP 109/51
[2021-01-22 05:11] VITALS: BP 113/54
[2021-01-22] MEDS: ACCU-CHEK COMFORT CURVE STRIP VI SCH ×3 (05:58→18:00)
[2021-01-22] MEDS: InsuLIN REG 1unit/0.01ml Soln (100units/ml) SC SCH ×3 (05:59→18:00)
[2021-01-22] MEDS: ALBUTEROL SULF 2.5 MG/0.5ML(0.5%) NEB SOLN NEB SCH ×3 (06:27→21:26)
[2021-01-22] MEDS: ACETYLCYSTEINE 20%(200MG/ML) SOL 4ML NEB SCH ×3 (06:28→21:26)
[2021-01-22 07:26] LABS: Basophils # (auto) 0.1 10 ^3/uL (0-0.2); Basophils % (auto) 0.8 % (0.0-2.0); Eosinophils # (auto) 0.1 10 ^3/uL (0-0.8); Eosinophils % (auto) 1.6 % (0.0-7.0); Hematocrit 26.8 % (36.0-46.0); Hemoglobin 8.5 g/dL (12.2-16.2); Lymphocytes # (auto) 0.7 10 ^3/uL (0.4-5.4); Lymphocytes % (auto) 11.2 % (10.0-50.0); Mean Corpuscular Hemoglobin 32.1 pg (28.0-32.0); Mean Corpuscular Hgb Conc. 31.7 g/dL (32.0-36.0); Mean Corpuscular Volume 101.4 fL (80.0-100.0); Monocytes # (auto) 0.6 10 ^3/uL (0-1.3); Monocytes % (auto) 9.6 % (0.0-12.0); Neutrophils # (auto) 4.8 10 ^3/uL (1.6-8.6); Neutrophils % (auto) 76.8 % (37.0-80.0); Platelet Count (auto) 169 10^3/uL (140-450); Red Blood Cells 2.65 10^6/uL (4.0-5.20); Red Cell Distribution Width 18.5 % (11.8-14.3); White Blood Cell 6.3 10^3/uL (4.4-10.8)
[2021-01-22 07:57] LABS: Potassium 4.1 mmol/L (3.5-5.1)
[2021-01-22 08:06] LABS: Albumin 1.8 g/dL (3.4-5.0); BUN/Creatinine Ratio 38.7; Bilirubin, Total 0.7 mg/dL (0.2-1.0); Magnesium 2.1 mg/dL (1.6-2.6); Phosphorus 2.8 mg/dL (2.5-4.90); Total Protein 6.3 g/dL (6.4-8.2)
[2021-01-22 08:13] LABS: Calcium 5.1 mg/dL (8.5-10.1)
[2021-01-22 08:44] VITALS: BP 122/56
[2021-01-22] MEDS: CARVEDILOL 12.5 MG TAB PO SCH ×2 (10:00→22:30)
[2021-01-22] MEDS: MICAFUNGIN SODIUM 100 MG in SODIUM CHL 0.9% 100 ML IV SCH (10:00)
[2021-01-22] MEDS: ENOXAPARIN SOD 40 MG/0.4 ML SYRINGE SC SCH ×2 (10:03→22:27)
[2021-01-22] MEDS: PANTOPRAZOLE 40 MG/10 ML VIAL INJ IV SCH ×2 (10:03→22:27)
[2021-01-22] MEDS: SODIUM CHLOR 0.9% PF (SALINE LOCK) 10ML VIAL/SYR IV SCH ×2 (10:17→22:00)
[2021-01-22] MEDS ORDERED: CALCIUM CHL 100MG/ML 1,000 MG in D5W 5% 100 ML IV ONE ×2 (11:15→21:00)
[2021-01-22] MEDS ORDERED: ALBUMIN 25% 100 ML IV ONE (12:30)
[2021-01-22 13:00] VITALS: BP 140/64
[2021-01-22] MEDS ORDERED: CALCIUM GLUC 4.65meq/50ml D5AE 50 ML IV ONE (13:30)
[2021-01-22] MEDS ORDERED: FUROSEMIDE 40 MG/4 ML VIAL IV ONE (13:30)
[2021-01-22] MEDS ORDERED: CALCIUM CARB 500 MG CHEW TAB PO ONE (14:00)
[2021-01-22 17:00] VITALS: BP 124/41
[2021-01-22] MEDS ORDERED: TPN PER PHARMACY IV NR ×10 (20:00)
[2021-01-22 22:00] VITALS: BP 149/54
[2021-01-23 04:49] VITALS: BP 115/64
[2021-01-23] MEDS: ACETYLCYSTEINE 20%(200MG/ML) SOL 4ML NEB SCH ×3 (06:38→22:41)
[2021-01-23] MEDS: ALBUTEROL SULF 2.5 MG/0.5ML(0.5%) NEB SOLN NEB SCH ×3 (06:38→22:41)
[2021-01-23] MEDS: ACCU-CHEK COMFORT CURVE STRIP VI SCH ×4 (06:49→17:39)
[2021-01-23] MEDS: InsuLIN REG 1unit/0.01ml Soln (100units/ml) SC SCH ×4 (06:50→17:40)
[2021-01-23 07:45] LABS: Basophils # (auto) 0.1 10 ^3/uL (0-0.2); Basophils % (auto) 0.6 % (0.0-2.0); Eosinophils # (auto) 0.1 10 ^3/uL (0-0.8); Eosinophils % (auto) 1.8 % (0.0-7.0); Hematocrit 29.5 % (36.0-46.0); Hemoglobin 9.7 g/dL (12.2-16.2); Lymphocytes # (auto) 0.8 10 ^3/uL (0.4-5.4); Lymphocytes % (auto) 9.8 % (10.0-50.0); Mean Corpuscular Hemoglobin 31.8 pg (28.0-32.0); Mean Corpuscular Hgb Conc. 32.8 g/dL (32.0-36.0); Mean Corpuscular Volume 97.2 fL (80.0-100.0); Monocytes # (auto) 0.7 10 ^3/uL (0-1.3); Monocytes % (auto) 8.2 % (0.0-12.0); Neutrophils # (auto) 6.5 10 ^3/uL (1.6-8.6); Neutrophils % (auto) 79.6 % (37.0-80.0); Platelet Count (auto) 187 10^3/uL (140-450); Red Blood Cells 3.03 10^6/uL (4.0-5.20); Red Cell Distribution Width 18.3 % (11.8-14.3); White Blood Cell 8.2 10^3/uL (4.4-10.8)
[2021-01-23] MEDS ORDERED: CALCIUM CARB 500 MG CHEW TAB PO SCH (08:00)
[2021-01-23 08:10] LABS: Potassium 3.8 mmol/L (3.5-5.1)
[2021-01-23 08:20] LABS: Albumin 2.9 g/dL (3.4-5.0); BUN/Creatinine Ratio 55.7; Bilirubin, Total 0.9 mg/dL (0.2-1.0); Calcium 8.9 mg/dL (8.5-10.1); Magnesium 2.2 mg/dL (1.6-2.6); Phosphorus 3.6 mg/dL (2.5-4.90); Total Protein 7.2 g/dL (6.4-8.2)
[2021-01-23 09:00] VITALS: BP 134/57
[2021-01-23] MEDS: PANTOPRAZOLE 40 MG/10 ML VIAL INJ IV SCH ×2 (09:27→22:47)
[2021-01-23] MEDS: MICAFUNGIN SODIUM 100 MG in SODIUM CHL 0.9% 100 ML IV SCH (09:27)
[2021-01-23] MEDS: HYDROcodone-ACET 5/325MG TAB PO PRN (09:27)
[2021-01-23] MEDS: ENOXAPARIN SOD 40 MG/0.4 ML SYRINGE SC SCH ×2 (09:28→23:01)
[2021-01-23] MEDS: CARVEDILOL 12.5 MG TAB PO SCH ×2 (09:28→23:01)
[2021-01-23] MEDS: SODIUM CHLOR 0.9% PF (SALINE LOCK) 10ML VIAL/SYR IV SCH ×2 (09:28→23:02)
[2021-01-23 13:00] VITALS: BP 115/33
[2021-01-23 17:00] VITALS: BP 156/61
[2021-01-23] MEDS ORDERED: TPN PER PHARMACY IV NR ×10 (20:00)
[2021-01-23 22:10] VITALS: BP 167/75
[2021-01-24] MEDS: ACCU-CHEK COMFORT CURVE STRIP VI SCH ×4 (00:30→17:18)
[2021-01-24] MEDS: InsuLIN REG 1unit/0.01ml Soln (100units/ml) SC SCH ×5 (00:30→23:43)
[2021-01-24 04:00] VITALS: BP 162/82
[2021-01-24] MEDS: ACETYLCYSTEINE 20%(200MG/ML) SOL 4ML NEB SCH ×3 (06:17→22:37)
[2021-01-24] MEDS: ALBUTEROL SULF 2.5 MG/0.5ML(0.5%) NEB SOLN NEB SCH ×3 (06:17→22:36)
[2021-01-24 07:24] LABS: Albumin 2.7 g/dL (3.4-5.0); Calcium 8.5 mg/dL (8.5-10.1); Magnesium 2.4 mg/dL (1.6-2.6); Potassium 4.2 mmol/L (3.5-5.1)
[2021-01-24 07:28] LABS: BUN/Creatinine Ratio 58.5; Bilirubin, Total 1.2 mg/dL (0.2-1.0); Phosphorus 3.6 mg/dL (2.5-4.90); Total Protein 6.9 g/dL (6.4-8.2)
[2021-01-24] MEDS: hydrALAZINE HCL 20 MG/ML VL IV PRN (07:48)
[2021-01-24 09:00] VITALS: BP 198/71
[2021-01-24] MEDS: PANTOPRAZOLE 40 MG/10 ML VIAL INJ IV SCH ×2 (09:19→22:55)
[2021-01-24] MEDS: SODIUM CHLOR 0.9% PF (SALINE LOCK) 10ML VIAL/SYR IV SCH ×2 (09:20→22:55)
[2021-01-24] MEDS: CARVEDILOL 12.5 MG TAB PO SCH ×2 (09:20→22:56)
[2021-01-24] MEDS: MICAFUNGIN SODIUM 100 MG in SODIUM CHL 0.9% 100 ML IV SCH (09:21)
[2021-01-24] MEDS: ENOXAPARIN SOD 40 MG/0.4 ML SYRINGE SC SCH ×2 (09:21→22:56)
[2021-01-24 13:00] VITALS: BP 141/52
[2021-01-24 16:52] VITALS: BP 149/62
[2021-01-24] MEDS ORDERED: TPN PER PHARMACY IV NR ×10 (20:00)
[2021-01-24 22:00] VITALS: BP 173/61
[2021-01-25 04:48] VITALS: BP 151/76
[2021-01-25] MEDS: InsuLIN REG 1unit/0.01ml Soln (100units/ml) SC SCH ×4 (06:00→23:15)
[2021-01-25 06:27] LABS: Basophils # (auto) 0 10 ^3/uL (0-0.2); Basophils % (auto) 0.5 % (0.0-2.0); Eosinophils # (auto) 0.1 10 ^3/uL (0-0.8); Eosinophils % (auto) 1.2 % (0.0-7.0); Hematocrit 28.8 % (36.0-46.0); Hemoglobin 9.2 g/dL (12.2-16.2); Lymphocytes % (auto) 13.2 % (10.0-50.0); Mean Corpuscular Hemoglobin 31.5 pg (28.0-32.0); Mean Corpuscular Volume 98.5 fL (80.0-100.0); Monocytes # (auto) 0.8 10 ^3/uL (0-1.3); Monocytes % (auto) 11.1 % (0.0-12.0); Neutrophils # (auto) 5.6 10 ^3/uL (1.6-8.6); Platelet Count (auto) 205 10^3/uL (140-450); Red Blood Cells 2.93 10^6/uL (4.0-5.20); Red Cell Distribution Width 18.4 % (11.8-14.3); White Blood Cell 7.5 10^3/uL (4.4-10.8)
[2021-01-25] MEDS: ALBUTEROL SULF 2.5 MG/0.5ML(0.5%) NEB SOLN NEB SCH ×3 (06:27→21:44)
[2021-01-25] MEDS: ACETYLCYSTEINE 20%(200MG/ML) SOL 4ML NEB SCH ×3 (06:27→21:44)
[2021-01-25] MEDS: ACCU-CHEK COMFORT CURVE STRIP VI SCH ×5 (06:29→23:15)
[2021-01-25 06:47] LABS: Potassium 3.7 mmol/L (3.5-5.1)
[2021-01-25 06:55] LABS: Albumin 2.4 g/dL (3.4-5.0); BUN/Creatinine Ratio 67.5; Bilirubin, Total 0.7 mg/dL (0.2-1.0); Calcium 8.4 mg/dL (8.5-10.1); Magnesium 2.4 mg/dL (1.6-2.6); Phosphorus 3.3 mg/dL (2.5-4.90); Total Protein 6.6 g/dL (6.4-8.2)
[2021-01-25 08:30] VITALS: BP 123/67
[2021-01-25] MEDS: PANTOPRAZOLE 40 MG/10 ML VIAL INJ IV SCH (08:33)
[2021-01-25] MEDS: ENOXAPARIN SOD 40 MG/0.4 ML SYRINGE SC SCH ×2 (08:33→23:14)
[2021-01-25] MEDS: MICAFUNGIN SODIUM 100 MG in SODIUM CHL 0.9% 100 ML IV SCH (08:34)
[2021-01-25] MEDS: SODIUM CHLOR 0.9% PF (SALINE LOCK) 10ML VIAL/SYR IV SCH ×2 (08:35→23:11)
[2021-01-25] MEDS: CARVEDILOL 12.5 MG TAB PO SCH ×2 (08:49→23:14)
[2021-01-25 12:30] VITALS: BP 127/69
[2021-01-25 16:00] VITALS: BP 120/58
[2021-01-25] MEDS ORDERED: TPN PER PHARMACY IV NR ×10 (20:00)
[2021-01-25] MEDS: MIRTAZAPINE 30 MG TAB PO SCH (23:14)
[2021-01-26 05:44] LABS: Albumin 2.4 g/dL (3.4-5.0); Calcium 8.2 mg/dL (8.5-10.1); Potassium 4.2 mmol/L (3.5-5.1)
[2021-01-26 05:50] LABS: BUN/Creatinine Ratio 65.4; Bilirubin, Total 0.7 mg/dL (0.2-1.0); Magnesium 2.2 mg/dL (1.6-2.6); Phosphorus 3.1 mg/dL (2.5-4.90)
[2021-01-26] MEDS: ACETYLCYSTEINE 20%(200MG/ML) SOL 4ML NEB SCH ×3 (05:54→22:03)
[2021-01-26] MEDS: ALBUTEROL SULF 2.5 MG/0.5ML(0.5%) NEB SOLN NEB SCH ×3 (05:55→22:02)
[2021-01-26] MEDS: ACCU-CHEK COMFORT CURVE STRIP VI SCH ×4 (06:44→22:45)
[2021-01-26] MEDS: InsuLIN REG 1unit/0.01ml Soln (100units/ml) SC SCH ×4 (06:51→22:49)
[2021-01-26 09:21] VITALS: BP 150/75
[2021-01-26] MEDS: MICAFUNGIN SODIUM 100 MG in SODIUM CHL 0.9% 100 ML IV SCH (10:35)
[2021-01-26] MEDS: CARVEDILOL 12.5 MG TAB PO SCH ×2 (10:35→22:43)
[2021-01-26] MEDS: PANTOPRAZOLE 40 MG TAB PO SCH (10:35)
[2021-01-26] MEDS: SODIUM CHLOR 0.9% PF (SALINE LOCK) 10ML VIAL/SYR IV SCH ×2 (10:35→22:34)
[2021-01-26] MEDS: ENOXAPARIN SOD 40 MG/0.4 ML SYRINGE SC SCH ×2 (10:36→22:44)
[2021-01-26 13:00] VITALS: BP 156/55
[2021-01-26 17:00] VITALS: BP 124/62
[2021-01-26] MEDS ORDERED: TPN PER PHARMACY IV NR ×10 (20:00)
[2021-01-26 21:53] VITALS: BP 105/62
[2021-01-26] MEDS: MIRTAZAPINE 30 MG TAB PO SCH (22:44)
[2021-01-27] VITALS (13 sets, daily range): BP systolic 78–126; BP diastolic 26–70
[2021-01-27] MEDS: ACCU-CHEK COMFORT CURVE STRIP VI SCH ×3 (06:24→18:19)
[2021-01-27] MEDS: InsuLIN REG 1unit/0.01ml Soln (100units/ml) SC SCH ×3 (06:24→18:18)
[2021-01-27] MEDS: ALBUTEROL SULF 2.5 MG/0.5ML(0.5%) NEB SOLN NEB SCH ×3 (07:19→23:18)
[2021-01-27] MEDS: ACETYLCYSTEINE 20%(200MG/ML) SOL 4ML NEB SCH ×3 (07:20→23:18)
[2021-01-27 08:06] LABS: Pre Albumin 17.6 mg/dL (20.0-40.0)
[2021-01-27] MEDS: HYDROcodone-ACET 5/325MG TAB PO PRN (08:28)
[2021-01-27] MEDS: MICAFUNGIN SODIUM 100 MG in SODIUM CHL 0.9% 100 ML IV SCH (09:03)
[2021-01-27] MEDS: SODIUM CHLOR 0.9% PF (SALINE LOCK) 10ML VIAL/SYR IV SCH (09:03)
[2021-01-27] MEDS: PANTOPRAZOLE 40 MG TAB PO SCH (09:04)
[2021-01-27] MEDS: CARVEDILOL 12.5 MG TAB PO SCH (09:04)
[2021-01-27] MEDS: ENOXAPARIN SOD 40 MG/0.4 ML SYRINGE SC SCH (09:04)
[2021-01-27 09:19] LABS: Albumin 2.2 g/dL (3.4-5.0); Calcium 8.4 mg/dL (8.5-10.1); Magnesium 2.6 mg/dL (1.6-2.6); Potassium 4.3 mmol/L (3.5-5.1)
[2021-01-27 09:23] LABS: BUN/Creatinine Ratio 63.2; Bilirubin, Total 1.1 mg/dL (0.2-1.0); Phosphorus 4.2 mg/dL (2.5-4.90); Total Protein 6.8 g/dL (6.4-8.2)
[2021-01-27] MEDS ORDERED: ALBUMIN 25% 50 ML IV ONE (20:15)
[2021-01-27] MEDS ORDERED: SODIUM BICARBONATE 8.4% INJ 50ML SYRINGE ONE (23:15)
[2021-01-27] MEDS: SODIUM BICARBONATE 8.4 % INJ 50ML VIAL IV ONE (23:15)
[2021-01-27] MEDS ORDERED: DOPamine 1600MCG/ML D5W 250 ML IV ONE (23:46)
[2021-01-27] MEDS ORDERED: ALBUMIN 5% 250 ML IV ONE (23:49)
[2021-01-28] VITALS (99 sets, daily range): BP systolic 76–158; BP diastolic 11–59
[2021-01-28] MEDS: CARVEDILOL 12.5 MG TAB PO SCH ×3 (00:23→20:16)
[2021-01-28] MEDS: MIRTAZAPINE 30 MG TAB PO SCH ×2 (00:23→20:17)
[2021-01-28] MEDS: SODIUM CHLOR 0.9% PF (SALINE LOCK) 10ML VIAL/SYR IV SCH ×3 (00:35→20:16)
[2021-01-28] MEDS: TPN PER PHARMACY IV NR ×10 (00:36→20:14)
[2021-01-28] MEDS: ACCU-CHEK COMFORT CURVE STRIP VI SCH ×4 (01:03→17:33)
[2021-01-28] MEDS: ENOXAPARIN SOD 40 MG/0.4 ML SYRINGE SC SCH ×2 (01:03→09:36)
[2021-01-28] MEDS: InsuLIN REG 1unit/0.01ml Soln (100units/ml) SC SCH ×4 (01:03→17:33)
[2021-01-28 02:44] LABS: Urine Bacteria MANY /hpf (None Seen); Urine Blood 1+ /uL (Negative); Urine Hyaline Cast FEW /lpf (0 - 2); Urine Specific Gravity 1.015 (1.001-1.035); Urine WBC 475 /hpf (0 - 5); Urine WBC Clumps PRESENT /hpf (None Seen)
[2021-01-28] MEDS ORDERED: SUCCINYLCHOLINE CHLORIDE 20 MG/ML 10ML VIAL IV ONE (03:44)
[2021-01-28] MEDS ORDERED: ETOMIDATE (2MG/ML) 20ML VIAL IV ONE (03:44)
[2021-01-28] MEDS ORDERED: MIDAZOLAM DRIP 50 mg/50mL 100 ML IV ONE (03:45)
[2021-01-28] MEDS ORDERED: NOREPINEPHRINE 8 MG/250ML KIT 250 ML IV ONE (03:46)
[2021-01-28] MEDS ORDERED: PROPOFOL 100 ML IV ONE (03:46)
[2021-01-28 03:51] LABS: Protein, Urine 99.9 mg/dL (0.0-11.9)
[2021-01-28] MEDS: NOREPINEPHRINE 8 MG/250ML KIT 250 ML IV SCH ×2 (04:00→12:20)
[2021-01-28] MEDS: PROPOFOL 100 ML IV SCH (04:00)
[2021-01-28] MEDS: MIDAZOLAM DRIP 50 mg/50mL 50 ML IV SCH (04:00)
[2021-01-28 06:07] LABS: Basophils # (auto) 0 10 ^3/uL (0-0.2); Basophils % (auto) 0.1 % (0.0-2.0); Eosinophils # (auto) 0 10 ^3/uL (0-0.8); Eosinophils % (auto) 0.1 % (0.0-7.0); Hematocrit 27.7 % (36.0-46.0); Hemoglobin 8.9 g/dL (12.2-16.2); Lymphocytes # (auto) 1.3 10 ^3/uL (0.4-5.4); Lymphocytes % (auto) 9.9 % (10.0-50.0); Mean Corpuscular Hemoglobin 31.7 pg (28.0-32.0); Mean Corpuscular Hgb Conc. 32.1 g/dL (32.0-36.0); Mean Corpuscular Volume 98.6 fL (80.0-100.0); Monocytes % (auto) 7.4 % (0.0-12.0); Neutrophils # (auto) 10.9 10 ^3/uL (1.6-8.6); Neutrophils % (auto) 82.5 % (37.0-80.0); Nucleated Red Blood Cells % 0.1 %; Platelet Count (auto) 204 10^3/uL (140-450); Red Blood Cells 2.81 10^6/uL (4.0-5.20); Red Cell Distribution Width 18.2 % (11.8-14.3); White Blood Cell 13.2 10^3/uL (4.4-10.8)
[2021-01-28 06:14] LABS: Potassium 3.8 mmol/L (3.5-5.1)
[2021-01-28] MEDS: PHENYLEPHRINE IV 250 ML IV SCH ×2 (06:15→13:35)
[2021-01-28] MEDS: ACETYLCYSTEINE 20%(200MG/ML) SOL 4ML NEB SCH ×3 (06:25→22:17)
[2021-01-28] MEDS: ALBUTEROL SULF 2.5 MG/0.5ML(0.5%) NEB SOLN NEB SCH ×3 (06:25→22:17)
[2021-01-28 06:29] LABS: Albumin 2.5 g/dL (3.4-5.0); BUN/Creatinine Ratio 66.1; Calcium 8.5 mg/dL (8.5-10.1); Magnesium 2.6 mg/dL (1.6-2.6); Total Protein 6.6 g/dL (6.4-8.2)
[2021-01-28] MEDS ORDERED: ESOMEPRAZOLE 40 MG/5ml VIAL INJ IV SCH ×2 (10:00→22:00)
[2021-01-28] MEDS: MICAFUNGIN SODIUM 100 MG in SODIUM CHL 0.9% 100 ML IV SCH (10:23)
[2021-01-28] MEDS ORDERED: SODIUM BICARBONATE 50ML VIAL 150 ML in D5W 5% 1,000 ML IV ONE (14:15)
[2021-01-28 14:28] LABS: Hemoglobin 7.4 g/dL (12.2-16.2); Mean Corpuscular Volume 103.1 fL (80.0-100.0)
[2021-01-28 14:30] LABS: Hematocrit 22.7 % (36.0-46.0); Mean Corpuscular Hemoglobin 33.5 pg (28.0-32.0); Mean Corpuscular Hgb Conc. 32.4 g/dL (32.0-36.0); Platelet Count (auto) 157 10^3/uL (140-450); Red Cell Distribution Width 19.1 % (11.8-14.3)
[2021-01-28 14:41] LABS: Basophils % (manual) 0 (0.0-2.0); Blast Cells 0; Myelocytes % 0; Promyelocytes % 0; Reactive Lymphocytes 0
[2021-01-28 15:00] LABS: INR 1.5 (0.9-1.15)
[2021-01-28 15:24] LABS: Partial Thromboplastin Time 28.4 sec (23.0-31.2)
[2021-01-28 15:47] LABS: Band Neutrophils % (manual) 30; Eosinophils % (manual) 2 (0-7); Lymphocytes % (manual) 17 (10.0-50.0); Metamyelocytes % 3; Monocytes % (manual) 3 (0-12)
[2021-01-28] MEDS ORDERED: VASOPRESSIN 50 UNITS in D5W 5% 247.5 ML IV SCH (16:15)
[2021-01-28] MEDS: EPINEPHrine HCL 250 ML IV SCH ×2 (16:15→21:58)
[2021-01-28] MEDS: DOPamine 1600MCG/ML D5W 250 ML IV SCH (16:15)
[2021-01-28] MEDS: PIPERACILLIN-TAZOB 2.25GM 50 ML IV SCH ×2 (16:18→22:18)
[2021-01-28] MEDS: VASOPRESSIN 50 UNITS in D5W 5% 247.5 ML IV SCH (16:38)
[2021-01-28] MEDS: PHENYLEPHRINE INJ 40 MG in SODIUM CHL 0.9% 246 ML IV SCH (17:45)
[2021-01-28] MEDS ORDERED: TPN PER PHARMACY IV NR ×5 (20:00)
[2021-01-28 20:35] LABS: Basophils # (auto) 0 10 ^3/uL (0-0.2); Eosinophils # (auto) 0 10 ^3/uL (0-0.8); Eosinophils % (auto) 0.1 % (0.0-7.0); Lymphocytes # (auto) 1.8 10 ^3/uL (0.4-5.4); Mean Corpuscular Hemoglobin 30.7 pg (28.0-32.0); Monocytes # (auto) 1.2 10 ^3/uL (0-1.3); Monocytes % (auto) 7.4 % (0.0-12.0); Platelet Count (auto) 182 10^3/uL (140-450)
[2021-01-28 20:36] LABS: Basophils % (auto) 0.2 % (0.0-2.0); Hematocrit 30.2 % (36.0-46.0); Lymphocytes % (auto) 11.3 % (10.0-50.0); Mean Corpuscular Hgb Conc. 29.7 g/dL (32.0-36.0); Mean Corpuscular Volume 103.5 fL (80.0-100.0); Neutrophils # (auto) 12.7 10 ^3/uL (1.6-8.6); Nucleated Red Blood Cells % 0.8 %; Red Blood Cells 2.92 10^6/uL (4.0-5.20); Red Cell Distribution Width 19.3 % (11.8-14.3); White Blood Cell 15.7 10^3/uL (4.4-10.8)
[2021-01-28] MEDS ORDERED: SODIUM BICARBONATE 8.4% INJ 50ML SYRINGE ONE (22:42)
[2021-01-28] MEDS ORDERED: SODIUM BICARBONATE 8.4 % INJ 50ML VIAL IV ONE (23:00)
[2021-01-28] MEDS: NOREPINEPHRINE BITARTRATE 16 MG in SODIUM CHL 0.9% 234 ML IV SCH (23:29)
[2021-01-29] VITALS (23 sets, daily range): BP systolic 102–158; BP diastolic 10–19
[2021-01-29] MEDS: InsuLIN REG 1unit/0.01ml Soln (100units/ml) SC SCH ×2 (00:30→05:07)
[2021-01-29] MEDS: ACCU-CHEK COMFORT CURVE STRIP VI SCH ×2 (00:32→05:10)
[2021-01-29] MEDS ORDERED: PHENYLEPHRINE IV 250 ML IV ONE ×2 (01:24→01:30)
[2021-01-29] MEDS ORDERED: SODIUM BICARBONATE 8.4 % INJ 50ML VIAL IV ONE ×2 (01:37→04:45)
[2021-01-29] MEDS: PHENYLEPHRINE INJ 40 MG in SODIUM CHL 0.9% 246 ML IV SCH ×2 (02:12→05:12)
[2021-01-29] MEDS ORDERED: SODIUM BICARBONATE 50ML VIAL 150 ML in D5W 5% 1,000 ML IV SCH (02:15)
[2021-01-29] MEDS: DOPamine 1600MCG/ML D5W 250 ML IV SCH (02:17)
[2021-01-29] MEDS: PIPERACILLIN-TAZOB 2.25GM 50 ML IV SCH (04:18)
[2021-01-29] MEDS ORDERED: PHENYLEPHRINE IV 500 ML IV ONE (04:39)
[2021-01-29] MEDS ORDERED: SODIUM BICARBONATE 8.4% INJ 50ML SYRINGE ONE (04:42)
[2021-01-29] MEDS: VASOPRESSIN 50 UNITS in D5W 5% 247.5 ML IV SCH (05:10)
[2021-01-29] MEDS: NOREPINEPHRINE BITARTRATE 16 MG in SODIUM CHL 0.9% 234 ML IV SCH (05:10)
[2021-01-29] MEDS: EPINEPHrine HCL 250 ML IV SCH (05:11)
[2021-01-29] MEDS: PROPOFOL 100 ML IV SCH (05:12)
[2021-01-29] MEDS: MIDAZOLAM DRIP 50 mg/50mL 50 ML IV SCH (05:12)
[2021-01-29 06:35] LABS: Hematocrit 30.2 % (36.0-46.0); Hemoglobin 8.3 g/dL (12.2-16.2); Mean Corpuscular Hemoglobin 31.5 pg (28.0-32.0); Mean Corpuscular Hgb Conc. 27.5 g/dL (32.0-36.0); Mean Corpuscular Volume 114.8 fL (80.0-100.0); Platelet Count (auto) 118 10^3/uL (140-450); Red Blood Cells 2.63 10^6/uL (4.0-5.20); Red Cell Distribution Width 20.2 % (11.8-14.3); White Blood Cell 22.9 10^3/uL (4.4-10.8)
[2021-01-29 06:37] LABS: Basophils % (manual) 0 (0.0-2.0); Blast Cells 0; Promyelocytes % 0; Reactive Lymphocytes 0
[2021-01-29 06:52] LABS: Albumin 1.6 g/dL (3.4-5.0); Calcium 7.5 mg/dL (8.5-10.1); Magnesium 2.6 mg/dL (1.6-2.6)
[2021-01-29 06:56] LABS: Band Neutrophils % (manual) 20; Eosinophils % (manual) 1 (0-7); Lymphocytes % (manual) 24 (10.0-50.0); Metamyelocytes % 1; Monocytes % (manual) 11 (0-12); Myelocytes % 2
[2021-01-29] MEDS: ACETYLCYSTEINE 20%(200MG/ML) SOL 4ML NEB SCH (07:00)
[2021-01-29] MEDS: ALBUTEROL SULF 2.5 MG/0.5ML(0.5%) NEB SOLN NEB SCH (07:00)
[2021-01-29 07:07] LABS: Bilirubin, Total 2.3 mg/dL (0.2-1.0); Total Protein 4.8 g/dL (6.4-8.2)
[2021-01-29 07:31] LABS: BUN/Creatinine Ratio 39.1
[2021-01-29 07:33] LABS: Potassium 6.6 mmol/L (3.5-5.1)
[2021-01-29 07:34] LABS: Phosphorus 10.9 mg/dL (2.5-4.90)
== END 2021-01-29 10:10 | DRG 853 ==
LOC: WEST WING 16:21 → OBSVTOIN 16:21 → INTOOBSV 16:21 → WEST WING 16:47 → TELE-WESTW 22:03 → ICU WEST 01-03 17:49 → TELE-WESTW 01-08 20:20 → ICU WEST 01-12 15:00 → TELE-CENTR 01-20 16:03 → ICU WEST 01-27 22:00 → DOU IN ICU 01-27 22:12
PROVIDERS: ADMIT Internal Medicine; ATTEND Internal Medicine
PROC: 0DTG0ZZ Resection of Left Large Intestine, Open Approach (ICD-10-PCS; 2021-01-03)
PROC: 5A1945Z Respiratory Ventilation, 24-96 Consecutive Hours (ICD-10-PCS; 2021-01-03)
PROC: 30233R1 Transfusion of Nonautologous Platelets into Peripheral Vein, Percutaneous Approach (ICD-10-PCS; 2021-01-12)
PROC: 0BJ08ZZ Inspection of Tracheobronchial Tree, Via Natural or Artificial Opening Endoscopic (ICD-10-PCS; 2021-01-12)
PROC: 5A1955Z Respiratory Ventilation, Greater than 96 Consecutive Hours (ICD-10-PCS; principal; 2021-01-12 13:45)
PROC: 0B918ZZ Drainage of Trachea, Via Natural or Artificial Opening Endoscopic (ICD-10-PCS; 2021-01-13)
PROC: 0B948ZZ Drainage of Right Upper Lobe Bronchus, Via Natural or Artificial Opening Endoscopic (ICD-10-PCS; 2021-01-13)
PROC: 0B988ZZ Drainage of Left Upper Lobe Bronchus, Via Natural or Artificial Opening Endoscopic (ICD-10-PCS; 2021-01-13)
PROC: 5A09357 Assistance with Respiratory Ventilation, Less than 24 Consecutive Hours, Continuous Positive Airway Pressure (ICD-10-PCS; 2021-01-17)
PROC: 5A09357 Assistance with Respiratory Ventilation, Less than 24 Consecutive Hours, Continuous Positive Airway Pressure (ICD-10-PCS; 2021-01-18)
PROC: 5A09357 Assistance with Respiratory Ventilation, Less than 24 Consecutive Hours, Continuous Positive Airway Pressure (ICD-10-PCS; 2021-01-18)
PROC: 0BH17EZ Insertion of Endotracheal Airway into Trachea, Via Natural or Artificial Opening (ICD-10-PCS; 2021-01-19)
PROC: 5A09357 Assistance with Respiratory Ventilation, Less than 24 Consecutive Hours, Continuous Positive Airway Pressure (ICD-10-PCS; 2021-01-19)
PROC: 0W9B3ZZ Drainage of Left Pleural Cavity, Percutaneous Approach (ICD-10-PCS; 2021-01-21)
PROC: 0W9B30Z Drainage of Left Pleural Cavity with Drainage Device, Percutaneous Approach (ICD-10-PCS; 2021-01-23)
PROC: 5A09357 Assistance with Respiratory Ventilation, Less than 24 Consecutive Hours, Continuous Positive Airway Pressure (ICD-10-PCS; 2021-01-27)
PROC: 5A1945Z Respiratory Ventilation, 24-96 Consecutive Hours (ICD-10-PCS; 2021-01-28)
DX: A41.9 Sepsis, unspecified organism (principal); I21.A1 Myocardial infarction type 2; N17.0 Acute kidney failure with tubular necrosis; I50.23 Acute on chronic systolic (congestive) heart failure; J81.0 Acute pulmonary edema; K65.1 Peritoneal abscess; J96.01 Acute respiratory failure with hypoxia; J16.8 Pneumonia due to other specified infectious organisms; K56.609 Unspecified intestinal obstruction, unspecified as to partial versus complete obstruction; B49 Unspecified mycosis; J93.9 Pneumothorax, unspecified; K29.70 Gastritis, unspecified, without bleeding; I48.91 Unspecified atrial fibrillation; K70.30 Alcoholic cirrhosis of liver without ascites; N18.32 Chronic kidney disease, stage 3b; I27.20 Pulmonary hypertension, unspecified; I73.9 Peripheral vascular disease, unspecified; E87.5 Hyperkalemia; I25.10 Atherosclerotic heart disease of native coronary artery without angina pectoris; D69.6 Thrombocytopenia, unspecified; D64.9 Anemia, unspecified; E83.51 Hypocalcemia; E78.5 Hyperlipidemia, unspecified; Z79.899 Other long term (current) drug therapy; Z82.3 Family history of stroke; Z82.49 Family history of ischemic heart disease and other diseases of the circulatory system; Z88.2 Allergy status to sulfonamides; Z91.041 Radiographic dye allergy status
CPT/HCPCS: 31720; 36415; 36569; 36600; 70450; 71045; 71250; 74018; 74176; 74250; 76604; 80053; 80162; 81001; 82040; 82270; 82271; 82570; 82805; 82962; 83605; 83735; 83880; 84100; 84156; 84300; 84439; 84443; 84478; 84484; 85007; 85014; 85018; 85025; 85027; 85610; 85730; 86850; 86900; 86901; 86920; 87040; 87070; 87075; 87077; 87081; 87086; 87205; 87426; 89051; 92507; 92610; 93971; 94002; 94003; 94640; 94660; 94668; 97110; 97116; 97163; 97530; C9113; G0378; J0171; J0330; J0610; J0690; J0696; J1100; J1815; J2185; J2248; J2250; J2543; J2704; J3490; J7042; J7060; J7131; P9047